=== PATIENT | male | born 1960 | race Caucasian/White ===

== ENCOUNTER 2018-03-26 14:41 | Emergency (ER) | payer MEDICAID, SELFPAY ==
[2018-03-26 15:06] VITALS: BP 155/98; PULSE 68; RESP 16; TEMP 37.2; O2SAT 98
--- NOTE | 2018-03-26 15:56 | W.ED.GENAD ---
Discharge Plan Disposition Patient Disposition: HOME Condition: Good Discharge Details Chief Complaint: Laceration Clinical Impression: Laceration Primary Care Provider: Jin Payan ED Provider: Toro Sosa Home Meds and New Rx's Prescriptions: No Action sildenafil [Viagra] 50 MG tablet 50 mg PO PRN RF: 0 fluticasone [Flonase Allergy Relief] 9.9 ML spray,suspension 9.9 ml NS DAILY RF: 0 cetirizine 10 MG tablet,chewable 10 mg PO DAILY RF: 0 ibuprofen 600 MG tablet 600 mg PO QID Qty: 30 RF: 0 Discharge Instructions Instructions: Care For Your Stitches (ED), Laceration (ED) Additional Instructions: Please return here in the emergency department in 7-10 days for reevaluation and removal of your sutures. If you notice any redness, discharge, worsening pain, persistent numbness or tingling please return immediately. If you notice any difficulty moving the finger, please return immediately. If you notice any worsening of your symptoms, or any new symptoms such as vomiting, diarrhea, fever, chills, shortness of breath, chest pain, numbness, weakness, or fainting , please return immediately to the emergency department for reevaluation. Please follow up with your primary care provider as soon as possible for reassessment and reevaluation. As always, it was a pleasure participating in your medical care today. Referrals: Jin Payan [Primary Care Provider] - Medical Decision Making This is a pleasant 58-year-old male who presents for evaluation of laceration on his left thumb which is his nondominant hand. It occurred with clean dishes that had broken. Physical exam demonstrates no evidence of weakness, numbness tingling, or decrease in two-point discrimination. Normal flexion extension of the thumb. The patient's tetanus was updated 1 year ago. The area was irrigated with copious amounts of normal saline chlorhexidine. The area was anesthetized with 5 cc of lidocaine, 1%. The area was explored and no evidence of foreign bodies were found. 5 simple interrupted sutures with 5-0 Ethilon in the left thumb were placed with no complications. Patient tolerated this well. Patient will be discharged home with close follow-up. We discussed red flags which to return the patient understands. I have extensively reviewed the treatment plan and discharge instructions with the patient. I have addressed all patient concerns at this time. The patient was made aware of what symptoms to monitor for that would warrant a return to the emergency department. Discussed the plan with the patient, they demonstrate verbal understanding and agreement with our assessment and plan at this time. HPI General Date/Time Provider Initiated Documentation: 03/26/18 15:08. HPI Narrative: This is a 58-year-old male who presents for evaluation of laceration of his left nondominant thumb. He cut it on a plate that broke roughly 30 minutes prior to arrival. Is over the dorsal aspect of the left thumb. He denies any numbness or tingling distal to the laceration. He denies any weakness of the finger, he denies any pain proximal to this area. He denies any other cuts. Last tetanus was updated 1 year ago. Patient denies any other complaints at this time. Related Data Home Medications Medication Instructions Recorded Confirmed ibuprofen 600 mg PO QID #30 tablet 06/09/17 03/26/18 cetirizine 10 mg PO DAILY tab-cap 09/26/17 03/26/18 fluticasone [Flonase Allergy 9.9 ml NS DAILY 09/26/17 03/26/18 Relief] sildenafil [Viagra] 50 mg PO PRN 09/26/17 03/26/18 Previous Rx's Medication Instructions Recorded ibuprofen 600 mg PO QID #30 tablet 06/09/17 Allergies Allergy/AdvReac Type Severity Reaction Status Date / Time No Known Allergies Allergy Unverified 03/26/18 15:09 General Stated Complaint: Laceration VERITO: 4 Review of Systems Review of Systems All systems reviewed & are unremarkable except as noted in HPI and below PFSH Family History Mother Personal history of malignant neoplasm Father No problems noted. Medical History Alcohol consumption binge drinking Allergic rhinitis Chronic anxiety Chronic low back pain Chronic obstructive lung disease Degenerative joint disease Depression Erectile dysfunction Hamstring tendinitis Onychomycosis Prediabetes Tobacco dependency hypertension,borderline Social History Smoking/Tobacco Use Status: Current every day Surgical History Colonoscopy - MAC (12/01/17) eye surgery Exam Narrative Exam Narrative: 1.Const: Well-nourished, Well-developed, appearing stated age 2.Eyes: PERRL, no conjunctival injection, and symmetrical lids. 3.ENT: Atraumatic external nose and ears. Moist MM. Neck: Symmetric, trachea midline, No thyromegaly. 4.CVS: +S1/S2, No murmurs or gallops. Peripheral pulses 2+ and equal in all extremities. Brisk capillary refill in all extremities. 5.RESP: Unlabored respiratory effort. Clear to auscultation bilaterally. No wheezes rales or rhonchi 6.GI: Soft, Nontender/Nondistended, No hepatosplenomegaly. No guarding or rebound. 7.MSK: Normocephalic, patient's extremities are normal except for a laceration over the dorsal aspect of the thumb on the left hand. It is located over the interphalangeal joint, just slightly distal to the joint itself. Physical exam demonstrates visualization of the tendon, however no evidence of tendon laceration. No active squirting bleeding, no numbness or tingling. Sensation is intact distal to the laceration, including two-point discrimination. Normal flexion extension of the thumb, no weakness. 8.Skin: Warm, Dry. No rashes or lesions. 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 Sensation grossly intact, no focal neurologic deficits. 10.Psych: (AAO) x3. Appropriate mood and affect Course Vital Signs Temperature 37.2 C 03/26/18 15:06 Pulse 68 03/26/18 15:06 Respiratory Rate 16 03/26/18 15:06 Blood Pressure 155/98 H 03/26/18 15:06 Pulse Oximetry 98 03/26/18 15:06 Temperature 37.2 C 03/26/18 15:06 Temperature Source Temporal Artery Scan 03/26/18 15:06 Pulse 68 03/26/18 15:06 Respiratory Rate 16 03/26/18 15:06 Respiratory Effort Non-Labored 03/26/18 15:07 Blood Pressure 155/98 H 03/26/18 15:06 Blood Pressure Position Sitting 03/26/18 15:06 Pulse Oximetry 98 03/26/18 15:06 Oxygen Delivery Method Room Air 03/26/18 15:06 Oxygen Flow Rate 0 03/26/18 15:06 Pain Level 0 03/26/18 15:06
[2018-03-26 16:07] VITALS: BP 155/98; PULSE 68; RESP 16; TEMP 37.2; O2SAT 98
== END 2018-03-26 16:08 | disposition home or self-care (01) ==
PROVIDERS: Emergency Provider Student in an Organized Health Care Education/Training Program; PCP Family Medicine
DX: S61.122A Laceration with foreign body of left thumb with damage to nail, initial encounter (principal); W45.8XXA Other foreign body or object entering through skin, initial encounter
CPT/HCPCS: 12001

== ENCOUNTER 2018-03-27 16:14 | Outpatient (REF) | payer MEDICAID, SELFPAY ==
[2018-03-27 19:08] LABS: Anion Gap 7.9 mmol/L (3-11); BUN 25 mg/dL (7-18); CO2 28.1 mmol/L (21.0-32.0); CREATININE 1.29 mg/dL (0.70-1.30); Calcium 8.8 mg/dL (8.5-10.1); Chloride 106 mmol/L (98-107); Estimated GFR 57.01 (mL/min/1.73m2); Glucose 97 mg/dL (70-100); Potassium 4.1 mmol/L (3.5-5.1); Sodium 142 mmol/L (136-145)
== END 2018-03-27 16:34 ==
LOC: NCHCN 16:14
PROVIDERS: PCP Family Medicine; Visit Provider Family Medicine
DX: I10 Essential (primary) hypertension (principal)
CPT/HCPCS: 80048

== ENCOUNTER 2018-03-31 01:35 | Outpatient (CLI) | payer MEDICAID, SELFPAY ==
--- NOTE | 2018-03-31 13:07 | DI.RAD_ITS ---
SYMPTOMS/DIAGNOSIS: LEFT SHOULDER PAIN, M25.512, NO INJURY, POINT TENDERNESS AROUND PROXIMAL LATERAL HUMERUS LEFT SHOULDER: Five views were obtained. There are mild hypertrophic degenerative changes involving the acromioclavicular and glenohumeral joints. No other bony or soft tissue abnormality seen.
== END 2018-03-31 01:55 ==
PROVIDERS: PCP Family Medicine; Visit Provider Family Medicine
DX: M25.512 Pain in left shoulder (principal); M19.012 Primary osteoarthritis, left shoulder
CPT/HCPCS: 73030

== ENCOUNTER 2018-04-05 10:26 | Emergency (ER) | payer MEDICAID, SELFPAY ==
[2018-04-05 10:39] VITALS: BP 146/89; PULSE 69; RESP 16; TEMP 36.5; O2SAT 98
--- NOTE | 2018-04-05 10:55 | ED.GENADUL_ITS ---
Discharge Plan Disposition Patient Disposition: HOME Condition: Good Discharge Details Chief Complaint: SutureRem Clinical Impression: Visit for suture removal Primary Care Provider: Jin Payan ED Provider: Koko Temple Home Meds and New Rx's Prescriptions: No Action sildenafil [Viagra] 50 MG tablet 50 mg PO PRN RF: 0 fluticasone [Flonase Allergy Relief] 9.9 ML spray,suspension 9.9 ml NS DAILY RF: 0 cetirizine 10 MG tablet,chewable 10 mg PO DAILY RF: 0 ibuprofen 600 MG tablet 600 mg PO QID Qty: 30 RF: 0 Discharge Instructions Instructions: Stitches Removal (ED), Steristrips (ED) Additional Instructions: Watch for any signs of infection and return immediately if these occur. Otherwise keep wound clean and dry and follow-up with your primary care provider as needed Referrals: Jin Payan [Primary Care Provider] - (As needed) Medical Decision Making Patient presenting to the emergency department for suture removal. Patient had sutures placed in left dorsal thumb 10 days ago. Patient has no purulence or erythema to suggest infection and most of the wound edges are well approximated with some mild opening with flexion of thumb which is expected given that the laceration was over joint. Sutures were removed and Steri-Strips put in place to help keep wound edges semi-proximated otherwise patient is clear for discharge with no further interventions needed. Patient encouraged to watch for any signs of infection and return immediately if these occur otherwise to follow-up with primary care provider as needed. HPI General Mode of arrival: ambulatory . Date/Time Provider Initiated Documentation: 04/05/18 10:27 . Limitations to Documentation: no limitations . Information obtained by: patient, RN notes reviewed and old records reviewed . History of Present Illness 58 year old M presents to the emergency department with the chief complaint of Suture removal, described as mild, with intensity rated at 2. Quality is described as aching, and is localized to the upper extremity. Patient started experiencing this day(s) (10) and it has been constant. Patient notes no other symptoms.. Patient did receive the following treatments prior to arrival, none Related Data Home Medications Medication Instructions Recorded Confirmed ibuprofen 600 mg PO QID #30 tablet 06/09/17 04/05/18 cetirizine 10 mg PO DAILY tab-cap 09/26/17 04/05/18 fluticasone [Flonase Allergy 9.9 ml NS DAILY 09/26/17 04/05/18 Relief] sildenafil [Viagra] 50 mg PO PRN 09/26/17 04/05/18 Previous Rx's Medication Instructions Recorded ibuprofen 600 mg PO QID #30 tablet 06/09/17 Allergies Allergy/AdvReac Type Severity Reaction Status Date / Time No Known Allergies Allergy Unverified 04/05/18 10:43 General Stated Complaint: SutureRem VERITO: 5 Review of Systems Constitutional Denies chills and Denies fever(s) Integumentary/Breasts Denies rash and Denies skin swelling PFSH Family History Mother Personal history of malignant neoplasm Father No problems noted. Medical History Alcohol consumption binge drinking Allergic rhinitis Chronic anxiety Chronic low back pain Chronic obstructive lung disease Degenerative joint disease Depression Erectile dysfunction Hamstring tendinitis Onychomycosis Prediabetes Tobacco dependency hypertension,borderline Social History Smoking/Tobacco Use Status: Current every day Surgical History Colonoscopy - MAC (12/01/17) eye surgery Exam Const General: cooperative, comfortable and no acute distress Orientation: alert, awake and oriented x3 Skin Rashes: no rashes Trauma: laceration (healing well laceration to left dorsal thumb at IP joint without erythema, purulence, or dehiscence.) Course Vital Signs Temperature 36.5 C 04/05/18 10:39 Pulse 69 04/05/18 10:39 Respiratory Rate 16 04/05/18 10:39 Blood Pressure 146/89 H 04/05/18 10:39 Pulse Oximetry 98 04/05/18 10:39 Temperature 36.5 C 04/05/18 10:39 Temperature Source Skin 04/05/18 10:39 Pulse 69 04/05/18 10:39 Respiratory Rate 16 04/05/18 10:39 Respiratory Effort Non-Labored 04/05/18 10:41 Blood Pressure 146/89 H 04/05/18 10:39 Pulse Oximetry 98 04/05/18 10:39 Pain Level 0 04/05/18 10:39
== END 2018-04-05 11:04 | disposition home or self-care (01) ==
LOC: ER 11:07
PROVIDERS: Emergency Provider Nurse Practitioner Family; PCP Family Medicine
DX: S61.12 Laceration with foreign body of thumb with damage to nail (principal); W45.8XXD Other foreign body or object entering through skin, subsequent encounter; Z48.02 Encounter for removal of sutures

== ENCOUNTER → 2018-10-28 09:55 | Outpatient (BNVA) | payer MEDICARE, SELFPAY | PROVIDERS: PCP Family Medicine; Referring Provider Family Medicine; Visit Provider Student in an Organized Health Care Education/Training Program | DX: M25.511 Pain in right shoulder (principal); W00.0XXA Fall on same level due to ice and snow, initial encounter; I10 Essential (primary) hypertension | CPT/HCPCS: 20610; 99213; 99214; J1040 ==

== ENCOUNTER 2018-11-05 22:23 | Emergency (ER) | payer MEDICARE, SELFPAY ==
[2018-11-05 22:28] VITALS: BP 142/89; PULSE 62; RESP 20; TEMP 37.6; O2SAT 98
--- NOTE | 2018-11-05 22:32 | W.ED.GENAD ---
Discharge Plan Disposition Patient Disposition: HOME Condition: Improving Discharge Details Chief Complaint: GenMedical Clinical Impression: Reducible left inguinal hernia Primary Care Provider: Jin Payan ED Provider: Koko Temple Home Meds and New Rx's Prescriptions: Continued sildenafil [Viagra] 50 MG tablet 50 mg PO PRN RF: 0 fluticasone propionate [Flonase Allergy Relief] 9.9 ML spray,suspension 9.9 ml NS DAILY RF: 0 cetirizine 10 MG tablet,chewable 10 mg PO DAILY RF: 0 ibuprofen 600 MG tablet 600 mg PO QID Qty: 30 RF: 0 Discharge Instructions Instructions: Inguinal Hernia (ED) Additional Instructions: Return immediately to the emergency department if you begin having persistent hernia with groin pain, inability to put hernia back into place, severe abdominal pain, nausea vomiting, or any further symptoms. Pending surgical appointment follow-up please refrain from heavy lifting, straining or activities that would increase abdominal pressure as this may re-aggravate your hernia. Referrals: [facility] [Provider Group] (Please call the office for arrangement of follow-up appointment. ) Medical Decision Making Patient presenting to the emergency department for chief complaint of hernia. Patient states that around 5 PM this evening he was eating food and coughed causing a hernia to his left groin. Patient states previous episode of right inguinal hernia that needed mesh repair years ago. Patient denies any other symptoms beyond groin pain. Physical exam shows a nontender abdomen with normal active bowel sounds, patient does have a bulging mass in the left inguinal canal. Approximately the size of a golf ball. Otherwise exam is unremarkable. Patient placed in Trendelenburg with ice pack placed upon groin and given IV ketorolac. Patient was left in this position for 30 minutes and reassessed and no further inguinal mass was seen. Patient stated only mild discomfort when palpating the left inguinal canal otherwise resolution of his symptoms. Patient was able to stand up and get out of the bed with no return of hernia at this time. Given easily reducible hernia I do not feel that any other evaluation or work-up is needed. Did discuss with patient emergent return for nonreducible or extremely painful hernia otherwise to follow-up with general surgery for repair. Patient placed upon care management list for surgical referral. After discussion of diagnosis and plan of care patient has no further needs, questions, or concerns and states clear understanding to return to the emergency department for any worsening symptoms. HPI General Mode of arrival: ambulatory. Date/Time Provider Initiated Documentation: 11/05/18 22:31. Limitations to Documentation: no limitations. Information obtained by: patient and RN notes reviewed. History of Present Illness 58 year old M presents to the emergency department with the chief complaint of Left inguinal hernia, described as moderate and similar to prior episodes, with intensity rated at 8. Quality is described as sharp, and is localized to the pelvis and left. Patient started experiencing this hour(s) (5) and it has been constant. Other factors that worsen symptoms (Coughing) . Patient notes no other symptoms.. Patient did receive the following treatments prior to arrival, none Related Data Home Medications Medication Instructions Recorded Confirmed ibuprofen 600 mg PO QID #30 tab 06/09/17 10/28/18 cetirizine 10 mg PO DAILY tab-cap 09/26/17 10/28/18 fluticasone propionate [Flonase 9.9 ml NS DAILY 09/26/17 10/28/18 Allergy Relief] sildenafil [Viagra] 50 mg PO PRN 09/26/17 10/28/18 Previous Rx's Medication Instructions Recorded ibuprofen 600 mg PO QID #30 tab 06/09/17 Allergies Allergy/AdvReac Type Severity Reaction Status Date / Time No Known Allergies Allergy Unverified 10/28/18 10:15 General Stated Complaint: GenMedical VERITO: 3 Review of Systems Constitutional Denies chills, Denies fever(s) and Denies poor appetite Cardiovascular Denies chest pain and Denies dyspnea Respiratory Denies cough and Denies dyspnea Gastrointestinal Reports as per HPI, Reports abdominal pain, Denies melena, Denies change in bowel habits, Denies constipation, Denies diarrhea, Denies nausea and Denies vomiting Genitourinary Denies difficulty urinating Integumentary/Breasts Denies rash [facility] Social History Smoking/Tobacco Use Status: Current every day Alcohol Intake: current Drug use: Daily Do you feel safe in your relationship?: Yes Exam Const General: cooperative Orientation: alert, awake and oriented x3 Resp Effort & Inspection: normal respiratory effort and able to speak in complete sentences Auscultation: clear to auscultation bilaterally Cardio Rate: regular rate Rhythm: regular rhythm Heart Sounds: S1 normal and S2 normal GI Palpation: soft, no hepatosplenomegaly, not firm, no guarding, hernia direct inguinal on the left, no pulsatile masses, not rigid and no splenomegaly Auscultation: normal bowel sounds Back/Spine/Pelvis Back: no CVA tenderness Neuro General: alert, awake, oriented x3, gait normal and moves all extremities Course Vital Signs Temperature 37.6 C H 11/05/18 22:28 Pulse 62 11/05/18 22:28 Respiratory Rate 20 11/05/18 22:28 Blood Pressure 142/89 H 11/05/18 22:28 Pulse Oximetry 98 11/05/18 22:28 Temperature 37.6 C H 11/05/18 22:28 Temperature Source Tympanic 11/05/18 22:28 Pulse 62 11/05/18 22:28 Respiratory Rate 20 11/05/18 22:28 Blood Pressure 142/89 H 11/05/18 22:28 Blood Pressure Position Sitting 11/05/18 22:28 Pulse Oximetry 98 11/05/18 22:28 Oxygen Delivery Method Room Air 11/05/18 22:28 Oxygen Flow Rate 0 11/05/18 22:28 Pain Level 8 11/05/18 22:28
--- NOTE | 2018-11-05 22:43 | ED.GENADUL_ITS ---
Discharge Plan Disposition Patient Disposition: HOME Condition: Improving Discharge Details Chief Complaint: GenMedical Clinical Impression: Reducible left inguinal hernia Primary Care Provider: Jin Payan ED Provider: Koko Temple Home Meds and New Rx's Prescriptions: Continued sildenafil [Viagra] 50 MG tablet 50 mg PO PRN RF: 0 fluticasone propionate [Flonase Allergy Relief] 9.9 ML spray,suspension 9.9 ml NS DAILY RF: 0 cetirizine 10 MG tablet,chewable 10 mg PO DAILY RF: 0 ibuprofen 600 MG tablet 600 mg PO QID Qty: 30 RF: 0 Discharge Instructions Instructions: Inguinal Hernia (ED) Additional Instructions: Return immediately to the emergency department if you begin having persistent hernia with groin pain, inability to put hernia back into place, severe abdominal pain, nausea vomiting, or any further symptoms. Pending surgical inderjit ointment follow-up please refrain from heavy lifting, straining or activities that would increase abdominal pressure as this may re-aggravate your hernia. Referrals: [facility] [Provider Group] (Please call the office for arrangement of follow-up appointment. ) Medical Decision Making Patient presenting to the emergency department for chief complaint of hernia. Patient states that around 5 PM this evening he was eating food and coughed causing a hernia to his left groin. Patient states previous episode of right inguinal hernia that needed mesh repair years ago. Patient denies any other symptoms beyond groin pain. Physical exam shows a nontender abdomen with normal active bowel sounds, patient does have a bulging mass in the left inguinal canal. Approximately the size of a golf ball. Otherwise exam is unremarkable. Patient placed in Trendelenburg with ice pack placed upon groin and given IV ketorolac. Patient was left in this position for 30 minutes and reassessed and no further inguinal mass was seen. Patient stated only mild discomfort when palpating the left inguinal canal otherwise resolution of his symptoms. Patient was able to stand up and get out of the bed with no return of hernia at this time. Given easily reducible hernia I do not feel that any other evaluation or work-up is needed. Did discuss with patient emergent return for nonreducible or extremely painful hernia otherwise to follow-up with general surgery for repair. Patient placed upon care management list for surgical referral. After discussion of diagnosis and plan of care patient has no further needs, questions, or concerns and states clear understanding to return to the emergency department for any worsening symptoms. HPI General Mode of arrival: ambulatory . Date/Time Provider Initiated Documentation: 11/05/18 22:31 . Limitations to Documentation: no limitations . Information obtained by: patient and RN notes reviewed . History of Present Illness 58 year old M presents to the emergency department with the chief complaint of Left inguinal hernia, described as moderate and similar to prior episodes, with intensity rated at 8. Quality is described as sharp, and is localized to the pelvis and left. Patient started experiencing this hour(s) (5) and it has been constant. Other factors that worsen symptoms (Coughing) . Patient notes no other symptoms.. Patient did receive the following treatments prior to arrival, none Related Data Home Medications Medication Instructions Recorded Confirmed ibuprofen 600 mg PO QID #30 tab 06/09/17 10/28/18 cetirizine 10 mg PO DAILY tab-cap 09/26/17 10/28/18 fluticasone propionate [Flonase 9.9 ml NS DAILY 09/26/17 10/28/18 Allergy Relief] sildenafil [Viagra] 50 mg PO PRN 09/26/17 10/28/18 Previous Rx's Medication Instructions Recorded ibuprofen 600 mg PO QID #30 tab 06/09/17 Allergies Allergy/AdvReac Type Severity Reaction Status Date / Time No Known Allergies Allergy Unverified 10/28/18 10:15 General Stated Complaint: GenMedical VERITO: 3 Review of Systems Constitutional Denies chills, Denies fever(s) and Denies poor appetite Cardiovascular Denies chest pain and Denies dyspnea Respiratory Denies cough and Denies dyspnea Gastrointestinal Reports as per HPI, Reports abdominal pain, Denies melena, Denies change in bowel habits, Denies constipation, Denies diarrhea, Denies nausea and Denies vomiting Genitourinary Denies difficulty urinating Integumentary/Breasts Denies rash [facility] Social History Smoking/Tobacco Use Status: Current every day Alcohol Intake: current Drug use: Daily Do you feel safe in your relationship?: Yes Exam Const General: cooperative Orientation: alert, awake and oriented x3 Resp Effort & Inspection: normal respiratory effort and able to speak in complete sentences Auscultation: clear to auscultation bilaterally Cardio Rate: regular rate Rhythm: regular rhythm Heart Sounds: S1 normal and S2 normal GI Palpation: soft, no hepatosplenomegaly, not firm, no guarding, hernia direct inguinal on the left, no pulsatile masses, not rigid and no splenomegaly Auscultation: normal bowel sounds Back/Spine/Pelvis Back: no CVA tenderness Neuro General: alert, awake, oriented x3, gait normal and moves all extremities Course Vital Signs Temperature 37.6 C H 11/05/18 22:28 Pulse 62 11/05/18 22:28 Respiratory Rate 20 11/05/18 22:28 Blood Pressure 142/89 H 11/05/18 22:28 Pulse Oximetry 98 11/05/18 22:28 Temperature 37.6 C H 11/05/18 22:28 Temperature Source Tympanic 11/05/18 22:28 Pulse 62 11/05/18 22:28 Respiratory Rate 20 11/05/18 22:28 Blood Pressure 142/89 H 11/05/18 22:28 Blood Pressure Position Sitting 11/05/18 22:28 Pulse Oximetry 98 11/05/18 22:28 Oxygen Delivery Method Room Air 11/05/18 22:28 Oxygen Flow Rate 0 11/05/18 22:28 Pain Level 8 11/05/18 22:28
[2018-11-05] MEDS: Ketorolac 30 MG/ML VIAL IVP (22:44)
--- NOTE | 2018-11-05 22:47 | NUR.NOTE ---
Nursing Note: Pt placed in trendelenburg position and placed an icepack on L suprapubic area.
[2018-11-05 23:35] VITALS: BP 142/89; PULSE 62; RESP 20; O2SAT 98
== END 2018-11-05 23:35 | disposition home or self-care (01) ==
PROVIDERS: Emergency Provider Nurse Practitioner Family; PCP Family Medicine
DX: K40.91 Unilateral inguinal hernia, without obstruction or gangrene, recurrent (principal)
CPT/HCPCS: 96374; 99284; J1885

== ENCOUNTER → 2018-11-23 12:23 | Outpatient (BNVA) | payer MEDICARE, SELFPAY | PROVIDERS: PCP Family Medicine; Referring Provider Family Medicine; Visit Provider Surgery | DX: K40.90 Unilateral inguinal hernia, without obstruction or gangrene, not specified as recurrent (principal) | CPT/HCPCS: 99204; 99213 ==

== ENCOUNTER 2018-12-10 06:19 | Day surgery (SDC) | payer MEDICARE, SELFPAY ==
--- NOTE | 2018-11-24 11:30 | ANES_ITS ---
Date of service: 11/24/18 Time of Service: 11:30 Anesthesia Note Report Anesthesia Note: Mr. Davalos is scheduled to have an inguinal hernia repair on 12/10. Although I have reached out to him, I have not spoken to him. I spoke with Linda Wilson at [facility] and understand he is currently living in his car but his car is also not working and is in the repair shop. He relayed that he may be able to stay with his daughter but per Linda, his daughter was recently evicted. The concern is that he have appropriate accommodations after surgery to recover. Linda is aware of this as well as the surgeons office ([facility]) who will follow up on this and confirm the plan. Linda is happy to help with RCT ride waiver and coordinate if needed. If he has accommodations, then surgery will proceed, if he does not then it is likely best to postpone surgery.
[2018-12-10] VITALS (8 sets, daily range): BP systolic 99–150; BP diastolic 68–97; PULSE 52–67; RESP 14–19; TEMP 36.5–36.8; O2SAT 97–100
[2018-12-10] MEDS: Lactated Ringers 1,000 ML 100 ML IV (06:55)
[2018-12-10] MEDS: ceFAZolin 2 GM/50 ML BAG IVPB (08:17)
[2018-12-10] MEDS: Bupivacaine 0.25% Pres-Free 30 ML VIAL (08:23)
--- NOTE | 2018-12-10 09:31 | W.PM.DSUDISC ---
Discharge Plan Disposition Patient Disposition: HOME Condition: Good Discharge Details Attending Provider: Shanice Benavidez Primary Care Provider: Jin Payan Home Meds and New Rx's Prescriptions: Continued sildenafil [Viagra] 50 MG tablet 50 mg PO PRN RF: 0 cetirizine 10 MG tablet,chewable 10 mg PO DAILY RF: 0 albuterol sulfate 90 mcg/actuation Hfa Aerosol Inhaler 2 puff INHALATION QID RF: 0 Discharge Instructions Additional Instructions: Okay to remove the top dressing tomorrow. Steri strips stick for about a week. May shower tomorrow Ice can be used as needed for pain. Use Tylenol and ibuprofen for pain as needed. Okay to use a stool softener if constipated Call for any concerns with infection or bleeding Stand Alone Forms: Anes.Nerve Block Instructions, DSU Post op Instructions, [place] (DSU) Activity:: Do not lift more than 15 pounds for one month Remove Dressings/Wound Care:: 24 hours Shower/Bathe:: 24 hours Diet:: As Tolerated Discharge Orders Discharge Orders: Discharge Order (Routine); Ordered 12/10/18 Ordered By: Shanice Benavidez DS: Diagnosis Discharge Diagnosis (1) Left inguinal hernia: Start date: 12/10/18 Start time: 09:31 Status: Acute
[2018-12-10] MEDS: HYDROmorphone 2 MG/ML VIAL IVP ×2 (09:57→10:13)
[2018-12-10] MEDS: Normal Saline Flush 10 ML SYR IV (09:58)
--- NOTE | 2018-12-11 08:10 | ROE_ITS ---
REPORT OF OPERATIVE PROCEDURE DATE OF PROCEDURE December 10, 2018 PREOPERATIVE DIAGNOSIS Left inguinal hernia. POSTOPERATIVE DIAGNOSIS Left inguinal hernia. PROCEDURE Left inguinal hernia repair with mesh. SURGEON Shanice Benavidez M.D. ANESTHESIA Local and general with TAP block. INDICATIONS This is a 58-year-old man with a reducible left inguinal hernia that is bothersome. The patient's history is significant for a right inguinal hernia repair. PROCEDURE DESCRIPTION The patient was placed supine on the operating table and after induction of general anesthetic, he had a left-sided TAP block placed. His left groin was then prepped and draped sterilely. The skin between the ASIS and pubic tubercle was infiltrated with local anesthetic. An incision was made and the subcutaneous tissue was divided with cautery. A small bridging vein was encountered and divided and ligated with #3-0 Vicryl ties. The external oblique fascia was identified and a small incision made. This was extended bluntly through the external inguinal ring and also proximally as well. The spermatic cord was encircled to the level of the pubic tubercle with a Dougherty drain. The patient did not have a significant direct inguinal hernia. He had a hernia sac present containing fat. This was dissected free of the spermatic cord and reduced through a patulous internal ring. The patient also had a fairly lipomatous spermatic cord, but I carefully inspected it and this was intimately associated with the vascular structure of the cord and could not be dissected free. A large mesh plug was trimmed to remove some of the internal petals and then inserted into the internal ring in good position. This was sutured superiorly with an interrupted #2-0 Prolene stitch. The flat sheet of mesh was then placed on the floor of the inguinal canal and sutured in position in standard Kulwant fashion. There was good hemostasis so the external oblique fascia was closed with a running #3-0 Vicryl stitch, as was the Jackie's fascia and the skin closed with a running #4-0 Monocryl subcuticular stitch. He tolerated the procedure well and was stable to recovery. CC: Jin Payan M.D.
== END 2018-12-10 12:10 | disposition home or self-care (01) ==
PROVIDERS: PCP Family Medicine; Visit Provider Surgery
PROC: (CPT 49505; principal; 2018-12-10 07:30)
DX: K40.90 Unilateral inguinal hernia, without obstruction or gangrene, not specified as recurrent (principal); J44.9 Chronic obstructive pulmonary disease, unspecified; G89.18 Other acute postprocedural pain; F17.210 Nicotine dependence, cigarettes, uncomplicated; Z59.0 Homelessness
CPT/HCPCS: 49505; 76942; C1781; J0690; J1100; J1885; J2405

== ENCOUNTER → 2018-12-21 10:45 | Outpatient (BNVA) | payer MEDICARE, SELFPAY | PROVIDERS: PCP Family Medicine; Referring Provider Family Medicine; Visit Provider Surgery | DX: Z48.815 Encounter for surgical aftercare following surgery on the digestive system (principal); Z87.19 Personal history of other diseases of the digestive system ==

== ENCOUNTER 2019-03-09 18:19 | Observation (INO) | payer MEDICARE, SELFPAY ==
[2019-03-09] VITALS (20 sets, daily range): BP systolic 134–146; BP diastolic 77–96; PULSE 45–68; RESP 9–27; TEMP 36.6; O2SAT 95–100
[2019-03-09] MEDS: Normal Saline 1,000 ML 1000 ML IV ×3 (18:30→22:02)
--- NOTE | 2019-03-09 18:30 | DI.RAD_ITS ---
EXAM: XR CHEST 2V PA LATERAL INDICATION: ALTERED MENTAL STATUS, bradycardic, r/o acute disease. COMPARISON: XR shoulder LT complete 2+V from 03/31/2018 TECHNIQUE: 2D digital imaging was performed. FINDINGS: The heart size and pulmonary vasculature are within normal limits. The lungs are clear. No effusion s or pneumothoraces are present. Degenerative changes are seen in the spine. IMPRESSION: No acute pulmonary process.
--- NOTE | 2019-03-09 18:30 | DI.CT_ITS ---
EXAM: CT HEAD WO CLINICAL HISTORY: ams, slurred speech, r/o acute cva TECHNIQUE: The exam was performed according to the usual protocol without contrast. COMPARISON: No exams were available for comparison FINDINGS: There is a normal mosqueda-white matter differentiation. No acute intracranial hemorrhage, midline shift or mass effect is present. The ventricles are intact. The basilar cisterns are patent. There is a 1.8 x 1.1 cm soft tissue mass in the left nasal passageway. This may represent a nasal polyp. Othe r nasal masses cannot be excluded. The visualized paranasal sinuses are clear as are the mastoid air cells. The calvarium is intact. IMPRESSION: No acute intracranial process. 1.8 x 1.1 cm soft tissue mass in the left nasal passageway. This may represent a nasal polyp. Follo w up as clinically appropriate.
--- NOTE | 2019-03-09 18:34 | ED.GENADUL_ITS ---
Discharge Plan Disposition Patient Disposition: [facility] INPATIENT Condition: Fair Discharge Details Chief Complaint: AMS/LOC Clinical Impression: Vertigo, Cocaine use, Marijuana use, continuous Primary Care Provider: Jin Payan ED Provider: Saman Bennett Home Meds and New Rx's Prescriptions: No Action sildenafil [Viagra] 50 MG tablet 50 mg PO PRN RF: 0 cetirizine 10 MG tablet,chewable 10 mg PO DAILY RF: 0 albuterol sulfate 90 mcg/actuation Hfa Aerosol Inhaler 2 puff INHALATION QID RF: 0 lisinopril-hydrochlorothiazide 10-12.5 mg Tablet 1 tab PO DAILY RF: 0 Medical Decision Making <Roxane Gross DO - Last Filed: 03/09/19 20:35> 1825 -- 58-year-old male with a history of chronic alcohol and drug abuse, COPD, history of homelessness who presents for dizziness since 215 and profound weakness, diaphoresis and slurred speech since 45 minutes ago. Heart rate 60s on arrival. Intermittently decreased into the 40s. EKG notes a rate of 50, sinus, no acute ST T wave ischemic changes and no acute change from previous EKG. previous EKGs also noted heart rates in the 40s. Patient is diaphoretic and drowsy but able to answer most questions. Moving all extremities and no obvious focal deficits. He has pinpoint pupils. There was mention by neighbor of possible crack and heroin use. Patient denied any drug or alcohol use other than marijuana. Case discussed with patient's daughter Natalie over the phone who stated that he had not been drinking any alcohol or using any other drugs besides marijuana recently. Differential diagnosis includes acute drug or alcohol intoxication, CVA, ACS, arrhythmia, electrolyte abnormality, dehydration, infection. Will place 2 large-bore IVs, IV fluids, screening labs, stat CT head and chest x-ray. 1855 --patient more alert and talkative after IV fluids. He does admit to a history of vertigo and states his dizziness is worse with head movement. Will give a dose of meclizine. CT head and chest x-ray negative. Labs reviewed and so far unremarkable. Patient has been unable to give a urine sample and is refusing straight cath. 2014 --uds notes cocaine and thc. Patient now admits to smoking cocaine a few days ago. Patient still complaining of vertigo worse with head movement. He does admit to a history of vertigo. Will give another dose of meclizine and 5 mg Valium and reassess. 2029 --Case endorsed to Dr. Bennett to follow-up on response to vertigo medication and final disposition. If patient improved after meds and ambulation, can discharge to home. Medical Records Medical records reviewed: Yes I reviewed the patient's medical records. Imaging Data Radiologic Study: Radiologist's impression: CT Head Without Contrast Exam date and time: 03/09/2019 6:44 PM Clinical history: 58 years old, male; Dizziness TECHNIQUE: Imaging protocol: Computed tomography of the head without contrast. COMPARISON: No relevant prior studies available. FINDINGS: Brain: Normal. No hemorrhage. Unremarkable white matter. No mass effect. Ventricles: Normal. No ventriculomegaly. Bones/joints: Unremarkable. No acute fracture. Sinuses: Visualized sinuses are unremarkable. No fluid levels. Mastoid air cells: Visualized mastoid air cells are well aerated. Soft tissues: Unremarkable. Other findings: There is polyp/mass in the posterior left choana. IMPRESSION: No acute intracranial abnormality. Lab Data Lab results reviewed: Yes I reviewed the patient's lab results. ECG Data Attestation: I personally reviewed and interpreted this ECG (s) as follows: Interpretation: Rate of 50, sinus, T wave inversion in lead III. No acute ST elevation or depression. NJ 140. QTc 43. QRS prolonged at 114 but this appears similar to previous EKGs. <Saman Bennett MD - Last Filed: 03/10/19 00:00> 22:30 - Patient signed out to me pending reevaluation after medications and flu ids. He had presented with dizziness. He was seen initially by Dr. Gross. Per her note and discussion with me, patient was nonfocal in terms of neurologic exam other than vertigo. His initial work-up was unremarkable including EKG, chest x-ray, head CT and labs. He has a prior history of vertigo in addition to his history of alcohol and drug abuse. Patient had received meclizine and was supposed to receive another dose of meclizine and Valium. He only got the Valium. Patient evaluated by me and states he does definitely feel better. However, in attempting to sit him up and stand him up his, vertigo returns immediately. I am going to give him the third liter of fluid that had been ordered as well as the second dose of meclizine that had been ordered. We will get a second EKG and troponin. If he is still unable to ambulate or sit up will discuss with hospitalist for admission. Midnight - Patient repeat EKG and troponin are fine. Continues to be symptomatic with any type of movement and we are unable to even sit him up on the stretcher. Case discussed with Dr. Munoz who agrees to admission. Lab Data Lab results reviewed: Yes I reviewed the patient's lab results. ECG Data Attestation: I personally reviewed and interpreted this ECG (s) as follows: Interpretation: Normal sinus rhythm at a rate of 64. Slight left axis and slight QRS widening. Normal ST segments. HPI <Roxane Gross DO - Last Filed: 03/09/19 20:35> General Mode of arrival: ambulatory . Date/Time Provider Initiated Documentation: 03/09/19 18:25 . Limitations to Documentation: no limitations . Information obtained by: patient . HPI Narrative: Patient is a 58-year-old male with a history of alcohol and narcotic drug abuse which per patient and daughter is currently in remission who presented for dizziness, weakness and diaphoresis that started this afternoon. Patient presented as needing help out of the car from the ED waiting room. Nursing staff brought him directly back to her room as he appeared diaphoretic and generally weak. Neighbor Akosua brought patient here for what she observed to be generalized weakness and sweating and dizziness but got progressively worse of the last 45 minutes. She states she saw him at 215 today and he seemed a little bit more quiet and tired than usual but no acute concern at that time. She does state that there is possibly history of crack and heroin use. Patient admits to some marijuana use but denies any drug or alcohol use. Related Data Home Medications Medication Instructions Recorded Confirmed cetirizine 10 mg PO DAILY tab-cap 09/26/17 03/09/19 sildenafil [Viagra] 50 mg PO PRN 09/26/17 03/09/19 albuterol sulfate 2 puff INHALATION QID 12/03/18 03/09/19 lisinopril-hydrochlorothiazide 1 tab PO DAILY 03/09/19 03/09/19 Allergies Allergy/AdvReac Type Severity Reaction Status Date / Time No Known Allergies Allergy Verified 03/09/19 18:29 General Stated Complaint: AMS/LOC VERITO: 1 Review of Systems <Roxane Gross DO - Last Filed: 03/09/19 20:35> All systems reviewed & are unremarkable except as noted in HPI and below Constitutional Constitutional: Reports as per HPI, Denies chills and Denies fever(s) Eyes Eyes: Denies blurry vision ENT Ears, Nose, Mouth, and Throat: Reports dizziness, Denies sore throat and Denies throat swelling Cardiovascular Cardiovascular: Denies chest pain and Denies dyspnea Respiratory Respiratory: Denies cough and Denies dyspnea Gastrointestinal Gastrointestinal: Denies abdominal pain, Denies diarrhea and Denies vomiting Genitourinary Genitourinary: Denies hematuria and Denies dysuria Musculoskeletal Musculoskeletal: Denies back pain and Denies numbness Integumentary/Breasts Skin/Breast: Denies lesions and Denies rash Neurologic Neurologic: Reports dizziness, Denies focal weakness and Denies numbness Allergic/Immunologic Allergic/Immunologic: Denies throat swelling PFSH <Roxane Gross DO - Last Filed: 03/09/19 20:35> Medical History Alcohol consumption binge drinking Allergic rhinitis Chronic anxiety Chronic low back pain Chronic obstructive lung disease Degenerative joint disease Depression Erectile dysfunction Hamstring tendinitis hypertension,borderline Onychomycosis Prediabetes Tobacco dependency Surgical History Colonoscopy - MAC (12/01/17) eye surgery trauma as a child H/O right inguinal hernia repair (Acute) S/P left inguinal hernia repair (Acute) 12/10/18, Dr Shanice Benavidez, [facility] Family History Mother , cancer Personal history of malignant neoplasm Father No problems noted. Social History Smoking/Tobacco Use Status: Current every day Alcohol Intake: current Alcohol Intake frequency: 0-2 drinks per day Alcohol ty pe: beer Drug use: Daily Substance use type: marijuana Additional Social history: homeless. Pt will be staying temporarily with Daughter, Melissa, following procedure. Exam <Roxane Gross DO - Last Filed: 10/29/19 20:35> Const General: cooperative and ill appearing acutely Orientation: other (drowsy) HENME Head: normal to inspection Ears: hearing grossly normal bilaterally, external ears normal and TM's normal bilaterally General nose exam: external nose normal Face and sinus: normal facial exam Mouth: oral mucosae normal Teeth and gingiva: dentition normal Throat: posterior oropharynx normal Eyes General: appearance normal, both eyes and all related structures Eyelids: eyelids normal Pupils: PERRL and pinpoint bilaterally EOM: EOM intact bilaterally Neck Neck: normal visual inspection Lymphatic: no lymphadenopathy noted Chest Chest: normal inspection of the chest Resp Effort & Inspection: normal respiratory effort and able to speak in complete sentences Auscultation: clear to auscultation bilaterally Cardio Rate: regular rate Rhythm: regular rhythm GI Inspection: normal to inspection Palpation: soft, not firm, no guarding, no hepatosplenomegaly, no masses and nontender Auscultation: normal bowel sounds Back/Spine/Pelvis Back: no CVA tenderness Skin General skin exam: no rashes or lesions noted Neuro General: moves all extremities and no meningeal signs Cranial Nerves: other (difficult to assess all cranial nerves due to drowsiness) Cognition: normal cognition Speech: speech normal Gait: normal gait Motor: muscle tone normal throughout and strength 5/5 throughout Sensory Exam: no sensory deficits noted Extrem General: normal to inspection, full ROM and normal capillary refill Psych Appearance: grossly normal Mental Status: mental status grossly normal Speech and Movement: speech and movement normal Affect: normal affect Thought Process: normal Course <Roxane Gross, - Last Filed: 03/09/19 20:35> Vital Signs Vital signs: Vital Signs Temperature 97.9 F 03/09/19 18:22 Pulse 60 03/09/19 18:22 Respiratory Rate 21 03/09/19 18:22 Blood Pressure 137/81 03/09/19 18:22 Pulse Oximetry 99 03/09/19 18:22 Temperature 97.9 F 03/09/19 18:22 Temperature Source Oral 03/09/19 18:22 Pulse 60 03/09/19 18:22 Respiratory Rate 21 03/09/19 18:22 Respiratory Effort Non-Labored 03/09/19 18:27 Blood Pressure 137/81 03/09/19 18:22 Pulse Oximetry 99 03/09/19 18:22 Oxygen Delivery Method Room Air 03/09/19 18:22 Oxygen Flow Rate 0 03/09/19 18:22 Pain Level 0 03/09/19 18:22 Sign Out <Roxane Gross DO - Last Filed: 03/09/19 20:35> Sign Out Data: Sign Out Comment: Follow-up on response to vertigo medication and final disposition. Last updated by Roxane Gross DO at 03/09/19 20:23
[2019-03-09 18:36] LABS: Abs Immature Grans 0.02 k/cumm (0.0-0.09); Absolute Basophil Count 0.05 k/cumm (0.0-0.2); Absolute Eosinophil Count 0.37 k/cumm (0.0-0.7); Absolute Lymphocyte Count 2.85 k/cumm (1.2-3.4); Absolute Monocyte Count 0.94 k/cumm (0.11-0.7); Basophils % 0.7; Eosinophils % 5.1; HCT 40.2 % (40.0-50.0); HGB 13.4 g/dL (13.5-17.5); Immature Grans % 0.3; Lymphocytes % 39.4; Mean Corp. HGB Concentration 33.3 g/dL (32.0-36.0); Mean Corpuscular Hemoglobin 28.3 pg (27.0-33.0); Mean Platelet Volume 9.8 fL (8.0-11.0); Neutrophils % 41.5; Platelet Count 248 x1000/uL (130-400); RBC 4.73 m/cumm (4.50-6.00); RBC Distribution Width 13.4 % (11.8-14.1); White Blood Cell Count 7.23 k/cumm (4.4-10.8)
[2019-03-09 18:44] LABS: Lactate 1.3 mmol/L (0.6-1.4)
[2019-03-09 18:46] LABS: PTT Activated 22.7 sec (21.0-31.4); Prothrombin Time 9.9 sec (9.3-11.0)
[2019-03-09 18:49] LABS: ALT 23 U/L (16-63); AST 18 U/L (15-37); Albumin 3.7 g/dL (3.4-5.0); Alkaline Phosphatase 69 U/L (46-116); Anion Gap 8.4 mmol/L (3-11); BUN 15 mg/dL (7-18); Bilirubin, Total 0.3 mg/dL (0.2-1.0); CO2 27.6 mmol/L (21.0-32.0); CREATININE 1.11 mg/dL (0.70-1.30); Calcium 8.7 mg/dL (8.5-10.1); Chloride 102 mmol/L (98-107); Glucose 127 mg/dL (70-100); Magnesium 2.1 mg/dL (1.8-2.4); Potassium 3.3 mmol/L (3.5-5.1); Sodium 138 mmol/L (136-145); Total Protein 7.7 g/dL (6.4-8.2)
[2019-03-09 18:55] LABS: Troponin I < 0.05 ng/mL (0.00-0.06)
[2019-03-09 18:59] LABS: Salicylate < 2.8 mg/dL (2.8-20.0)
--- NOTE | 2019-03-09 19:01 | DI.VRAD_ITS ---
PROCEDURE INFORMATION: Exam: CT Head Without Contrast Exam date and time: 03/09/2019 6:44 PM Clinical history: 58 years old, male; Dizziness TECHNIQUE: Imaging protocol: Computed tomography of the head without contrast. COMPARISON: No relevant prior studies available. FINDINGS: Brain: Normal. No hemorrhage. Unremarkable white matter. No mass effect. Ventricles: Normal. No ventriculomegaly. Bones/joints: Unremarkable. No acute fracture. Sinuses: Visualized sinuses are unremarkable. No fluid levels. Mastoid air cells: Visualized mastoid air cells are well aerated. Soft tissues: Unremarkable. Other findings: There is polyp/mass in the posterior left choana. IMPRESSION: No acute intracranial abnormality. Dictated and Authenticated by: Mitchell Patricia MD. Ordering:GHAZAL Betts MD
--- NOTE | 2019-03-09 19:03 | DI.VRAD_ITS ---
PROCEDURE INFORMATION: Exam: XR Chest, 2 Views Exam date and time: 03/09/2019 6:32 PM Clinical history: 58 years old, male; Shortness of breath TECHNIQUE: Imaging protocol: XR of the chest Views: 2 views. COMPARISON: CR CHEST 2 VIEWS PA,LAT 11/23/2012 3:31 PM FINDINGS: Lungs: Unremarkable. No consolidation. Pleural space: Unremarkable. No pleural effusion. No pneumothorax. Heart/Mediastinum: Unremarkable. No cardiomegaly. Bones/joints: Degenerative changes of the spine IMPRESSION: No acute abnormality. Dictated and Authenticated by: Mitchell Patricia MD. Ordering:GHAZAL Betts MD
[2019-03-09 19:07] LABS: ETHANOL BLOOD < 3.0 mg/dL (<3)
[2019-03-09 19:10] LABS: Acetaminophen < 2 ug/mL (10-30)
[2019-03-09] MEDS: Normal Saline Flush 10 ML SYR IVP (19:11)
[2019-03-09] MEDS: Meclizine 25 MG TAB (19:12)
[2019-03-09 19:43] LABS: Bilirubin Negative (Negative); Blood Negative (Negative); Clarity Clear (Clear); Glucose Negative (Negative); Ketones Negative (Negative); Leukocyte Esterase Negative (Negative); Nitrite Negative (Negative); Specific Gravity 1.025 (1.005-1.025)
[2019-03-09 19:51] LABS: *AMPHETAMINES SCREEN URINE Negative (Negative); *BARBITURATES SCREEN URINE Negative (Negative); *BENZODIAZEPINES SCREEN URINE Negative (Negative); Cannabinoids THC POSITIVE (Negative); Cocaine Screen,Urine POSITIVE (Negative); METHADONE URINE SCREEN Negative (Negative); OPIATES URINE SCREEN Negative (Negative)
[2019-03-09 20:04] LABS: Tricyclic Antidepressants Negative (Negative)
[2019-03-09] MEDS: diazePAM 5 MG TAB PO (22:02)
[2019-03-09] MEDS: Meclizine 25 MG TAB PO (23:13)
[2019-03-09 23:28] LABS: Troponin I < 0.05 ng/mL (0.00-0.06)
[2019-03-10] VITALS (16 sets, daily range): BP systolic 129–156; BP diastolic 83–100; PULSE 55–82; RESP 11–19; TEMP 36.3–37.6; O2SAT 95–99
--- NOTE | 2019-03-10 00:01 | NUR.NOTE ---
Nursing Note: attempted to stand pt up for the second time. any time he moves he gets hot all over and became nauseated due to dizziness.
--- NOTE | 2019-03-10 06:00 | W.PM.HP.N ---
Date of service: 03/10/19 Time of Service: 06:00 Assessment and Plan Assessment and plan (1) Vertigo: Status: Acute Assessment and plan: 1. Vertigo, certainly peripheral. Sounds like it may be abating. Will have PT see him and continue prn Meclizine. IVF until PO adequate (taking only ice chips at present) 2. Hypokalemia: will supplement. 3. +UDS for cocaine:incidental finding History of Present Illness History of Present Illness Chief Complaint: vertigo Narrative: 58 male presented initially with more non-specific sense of weakness but eventually transpired that he has been having one day of vertigo in (he tells me) the setting of recent URI. Vertigo is worse with movement of head, OK if he lies still, and accompanied by nausea. In ER, CT of head negative; received Meclizine and Valium but still unable to ambulate so admitted for further management. This morning he tells me he is feeling somewhat better, less intense, though he has not yet tried to get up. Review of Systems All systems reviewed & are unremarkable except as noted in HPI and below PFSH Medical History Alcohol consumption binge drinking Allergic rhinitis Chronic anxiety Chronic low back pain Chronic obstructive lung disease Degenerative joint disease Depression Erectile dysfunction Hamstring tendinitis hypertension,borderline Onychomycosis Prediabetes Tobacco dependency Surgical History Colonoscopy - MAC (12/01/17) eye surgery trauma as a child H/O right inguinal hernia repair (Acute) S/P left inguinal hernia repair (Acute) 12/10/18, Dr Shanice Benavidez, [facility] Family History Mother , cancer Personal history of malignant neoplasm Father No problems noted. Social History Smoking/Tobacco Use Status: Current every day Alcohol Intake: current Alcohol Intake frequency: 0-2 drinks per day Alcohol type: beer Drug use: Daily Substance use type: marijuana Additional Social history: homeless. Pt will be staying temporarily with Daughter, Melissa, following procedure. Meds Home Medications and Allergies Home Medications Medication Instructions Recorded Confirmed Type cetirizine 10 mg PO DAILY tab-cap 09/26/17 03/09/19 History sildenafil [Viagra] 50 mg PO PRN 09/26/17 03/09/19 History albuterol sulfate 2 puff INHALATION QID 12/03/18 03/09/19 History lisinopril-hydrochlorothiazide 1 tab PO DAILY 03/09/19 03/09/19 History Allergies Allergy/AdvReac Type Severity Reaction Status Date / Time No Known Allergies Allergy Verified 03/09/19 18:29 Exam Narrative Exam Narrative: 131/86, 82, 17, 36.8. HEENT no nystagmus, declines [place]-Hallpike testing. neck supple; lungs clear; heart occasional ectopic (compensated); abdomen soft NT; extremities no edema, pulse equal; neuro Ox3, CN intact, motor 5/5 Results Labs Result diagrams: 03/09/19 18:25 03/09/19 18:25 Labs: Laboratory Results - last 24 hr 03/09/19 03/09/19 03/09/19 18:25 18:25 18:25 WBC 7.23 RBC 4.73 Hgb 13.4 L Hct 40.2 MCV 85.0 MCH 28.3 MCHC 33.3 RDW 13.4 Plt Count 248 MPV 9.8 Immature Gran % 0.3 Neutrophils % 41.5 Lymphocytes % 39.4 Monocytes % 13.0 Eosinophils % 5.1 Basophils % 0.7 Absolute Neutrophils 3.00 Absolute Lymphocytes 2.85 Absolute Monocytes 0.94 H Absolute Eosinophils 0.37 Absolute Basophils 0.05 PT 9.9 INR 1.0 APTT 22.7 Sodium 138 Potassium 3.3 L Chloride 102 Carbon Dioxide 27.6 Anion Gap 8.4 BUN 15 Creatinine 1.11 Estimated GFR/1.73 m2 >= 60.00 Glucose 127 H Lactate Calcium 8.7 Magnesium 2.1 Total Bilirubin 0.3 AST 18 ALT 23 Alkaline Phosphatase 69 Troponin I < 0.05 Total Protein 7.7 Albumin 3.7 Urine Color Urine Clarity Urine pH Ur Specific Krypton Urine Protein Urine Ketones Urine Blood Urine Nitrite Urine Bilirubin Urine Urobilinogen Ur Leukocyte Esterase Urine Glucose Salicylates Urine Opiates Screen Urine Methadone Screen Acetaminophen Ur Barbiturates Screen Ur Tricyclics Screen Ur Amphetamines Screen U Benzodiazepines Scrn Urine Cocaine Screen Ur THC Screen Ethyl Alcohol 03/09/19 03/09/19 03/09/19 18:25 18:25 18:40 WBC RBC Hgb Hct MCV MCH MCHC RDW Plt Count MPV Immature Gran % Neutrophils % Lymphocytes % Monocytes % Eosinophils % Basophils % Absolute Neutrophils Absolute Lymphocytes Absolute Monocytes Absolute Eosinophils Absolute Basophils PT INR APTT Sodium Potassium Chloride Carbon Dioxide Anion Gap BUN Creatinine Estimated GFR/1.73 m2 Glucose Lactate 1.3 Calcium Magnesium Total Bilirubin AST ALT Alkaline Phosphatase Troponin I Total Protein Albumin Urine Color Urine Clarity Urine pH Ur Specific Krypton Urine Protein Urine Ketones Urine Blood Urine Nitrite Urine Bilirubin Urine Urobilinogen Ur Leukocyte Esterase Urine Glucose Salicylates < 2.8 L Urine Opiates Screen Urine Methadone Screen Acetaminophen < 2 L Ur Barbiturates Screen Ur Tricyclics Screen Ur Amphetamines Screen U Benzodiazepines Scrn Urine Cocaine Screen Ur THC Screen Ethyl Alcohol < 3.0 03/09/19 03/09/19 03/09/19 19:30 19:30 22:54 WBC RBC Hgb Hct MCV MCH MCHC RDW Plt Count MPV Immature Gran % Neutrophils % Lymphocytes % Monocytes % Eosinophils % Basophils % Absolute Neutrophils Absolute Lymphocytes Absolute Monocytes Absolute Eosinophils Absolute Basophils PT INR APTT Sodium Potassium Chloride Carbon Dioxide Anion Gap BUN Creatinine Estimated GFR/1.73 m2 Glucose Lactate Calcium Magnesium Total Bilirubin AST ALT Alkaline Phosphatase Troponin I < 0.05 Total Protein Albumin Urine Color Yellow Urine Clarity Clear Urine pH 6.0 Ur Specific Krypton 1.025 Urine Protein Negative Urine Ketones Negative Urine Blood Negative Urine Nitrite Negative Urine Bilirubin Negative Urine Urobilinogen 1.0 H Ur Leukocyte Esterase Negative Urine Glucose Negative Salicylates Urine Opiates Screen Negative Urine Methadone Screen Negative Acetaminophen Ur Barbiturates Screen Negative Ur Tricyclics Screen Negative Ur Amphetamines Screen Negative U Benzodiazepines Scrn Negative Urine Cocaine Screen Positive A Ur THC Screen Positive A Ethyl Alcohol Last Vital Signs Temp 36.8 C 03/10/19 03:43 Pulse 82 03/10/19 03:43 Resp 17 03/10/19 03:43 BP 131/86 03/10/19 03:43 Pulse Ox 98 03/10/19 03:43
[2019-03-10] MEDS: Normal Saline Flush 10 ML SYR IVP (06:46)
[2019-03-10] MEDS: POTASSIUM CHLORIDE/D5-0.9%NACL 1,000 ML 100 MEQ IV ×2 (06:46→18:52)
[2019-03-10] MEDS: Lisinopril 10 MG TAB PO (08:03)
[2019-03-10] MEDS: hydroCHLOROthiazide 12.5 MG TAB PO (08:03)
--- NOTE | 2019-03-10 09:54 | PDOC.CMIN ---
Care Management Initial Assess REASON FOR HOSPITALIZATION:: Vertigo, Bradycardia PAST MEDICAL HISTORY/PAST SURGICAL HISTORY:: Alcohol consumption binge drinking, allergic rhinitis, chronic anxiety, chronic low back pain, chronic obstructive lung disease, degenerative joint disease, depression, erectile dysfunction, hamstring tendinitis, hypertension-borderline, onychomycosis, prediabetes, tobacco dependency, colonoscopy, eye surgery, right inguinal hernia repair, left inguinal hernia repair. PREVIOUS FUNCTIONAL STATUS/SOCIAL/FAMILY SUPPORTS:: Ary is , lists a significant other, Kae as next of kin and has a daughter, Natalie who resides locally in [facility] and is his person to notify. Currently, Ary does not have a residence and has been staying in his car. CURRENT FUNCTIONAL STATUS:: Ary is sleeping when CM attempts to meet with him. He struggles with ongoing dizzyness and has struggled to open his eyes and engage meaningfully today with staff, per provider. ADVANCE DIRECTIVES:: None on file at [facility] Has patient been provided with information about the portal?: Yes Did the patient sign up for the portal?: Yes (Previously) CODE STATUS:: Full Code INSURANCE COVERAGE / FINANCIAL ISSUES:: Medicaid. Medicare CURRENT HOME/COMMUNITY SERVICES/EQUIPMENT:: No current services or equipment at this time. PRIMARY CARE PHYSICIAN:: Jin Payan MD. POTENTIAL DISCHARGE NEEDS:: CM to connect with PCP Veterinarian Helper, CHRISTINE and girls swimming coach re: disposition and increased services/housing. PATIENT/FAMILY EDUCATION NEEDS:: Resources for housing, service connection, follow up appointments. ANTICIPATED BARRIERS TO DISCHARGE:: None identified at this time. TRANSPORTATION:: Via private vehicle. PLAN:: Ary will discharge when ready per MD. CM will provide resources for service connection upon discharge.
--- NOTE | 2019-03-10 10:30 | W.PM.PROGNOT ---
Date of Service Date of service: 03/10/19 Time of Service: 10:30 Assessment and Plan Assessment and plan (1) Dizziness: Status: Acute Assessment and plan: MRI/MRA brain ordered to rule out posterior CVA. Brain MRI showing Foci of restricted diffusion in the left cerebellum suspicious for subacute infarcts. Schedule meclizine. Continue IV fluids until tolerating orals. Zofran for nausea. Add statin therapy, daily aspirin. Monitor on telemetry, echo ordered. Lipid panel, TSH, Hgb A1c in the morning. Neurology consult placed. (2) Vertigo: Status: Acute Assessment and plan: Has had vertigo in the past. See above. (3) Upper respiratory infection: Status: Acute Assessment and plan: With left ear congestion. Chest x-ray negative, afebrile. Sudafed as needed. Rapid flu pending. (4) Chronic obstructive lung disease: Status: None Assessment and plan: Current smoker. No oxygen requirement. Nebulizer treatments as needed. (5) DVT prophylaxis: Status: Acute Assessment and plan: Subcutaneous Lovenox. (6) Discharge planning issues: Status: Acute Assessment and plan: He is a full code. He sleeps in his car or stays at his daughter's house when he is taking care of her children. This case was discussed with Dr. Marcum who is in agreement. Subjective Subjective Interval history since last seen: David reports mild improvement in his symptoms today. He can open his eyes briefly without severe dizziness. Last night he was unable to open his eyes. He continues to have dizziness/feel like he is on a boat when he moves. He feels nauseated intermittently, especially with any movement. He began having URI symptoms 2 days ago, including a cough productive of clear sputum, nasal congestion, left ear congestion/muffled sound, no fever. His chest x-ray was negative for any acute process. Flu swab is pending. He denies chest pain/pressure, palpitations. His appetite is poor, due to nausea. He is emptying his bladder as usual. He has not had a bowel movement since he has been in the hospital. He reports that he does smoke cigarettes, up to half a pack per day. He also smokes marijuana and vapes marijuana. He occasionally drinks alcohol but has not had any alcohol in weeks. He used cocaine 2 days ago. He also reports that he sleeps in his car or states that his daughter's house when he is babysitting her children. Exam Narrative Exam Narrative: General: Middle-aged man, lying in bed with eyes closed, opens eyes briefly. Laying very still in the bed. Answers questions appropriately, alert and oriented, pleasant cooperative. HEENT: Subtle vertical nystagmus noted. Pupils equal and round. Poor dentition, mucous membranes moist. Neck: Supple, no JVD. Cardiovascular: Heart has regular rate and rhythm, no murmur appreciated. Respiratory: Respirations appear even and unlabored. Inspiratory and expiratory wheezing noted, no rales. GI: Normoactive bowel sounds throughout, abdomen soft, nontender on palpation, no masses appreciated. Extremities: No clubbing, cyanosis or edema. Objective Objective Clinical Data: Abnormal lab results 03/09/19 03/09/19 03/09/19 Range/Units 18:25 18:25 18:25 Hgb 13.4 L (13.5-17.5) g/dL Absolute Monocytes 0.94 H (0.11-0.7) k/cumm Potassium 3.3 L (3.5-5.1) mmol/L Glucose 127 H (70-100) mg/dL Urine Urobilinogen (Up TO 0.2) EU/dL Salicylates < 2.8 L (2.8-20.0) mg/dL Acetaminophen < 2 L (10-30) ug/mL Urine Cocaine Screen (Negative) Ur THC Screen (Negative) 03/09/19 03/09/19 Range/Units 19:30 19:30 Hgb (13.5-17.5) g/dL Absolute Monocytes (0.11-0.7) k/cumm Potassium (3.5-5.1) mmol/L Glucose (70-100) mg/dL Urine Urobilinogen 1.0 H (Up TO 0.2) EU/dL Salicylates (2.8-20.0) mg/dL Acetaminophen (10-30) ug/mL Urine Cocaine Screen Positive A (Negative) Ur THC Screen Positive A (Negative) Vital Signs Temperature 36.8 C 03/10/19 03:43 Temperature Source Tympanic 03/10/19 03:43 Pulse 82 03/10/19 03:43 Pulse Rhythm Irregular 03/10/19 08:06 Pulse 63 03/10/19 00:16 Respiratory Rate 17 03/10/19 03:43 Respiratory Effort 03/10/19 08:06 Respiratory Depth Normal 03/10/19 08:06 Respiratory Pattern Normal 03/10/19 08:06 Blood Pressure 131/86 03/10/19 03:43 Blood Pressure Mean 100 03/10/19 00:16 Pulse Oximetry 98 03/10/19 03:43 Oxygen Delivery Method Room Air 03/10/19 03:43 Oxygen Flow Rate 0 03/10/19 03:43 Pain Level 0 03/10/19 03:43 Intake & Output 03/09/19 03/09/19 03/10/19 11:59 23:59 11:59 Intake Total 3000.000 / 3000.000 168.333 / 168.333 Output Total 500 / 500 Balance 3000.000 / 3000.000 -331.667 / -331.667 Weight 74.843 kg 74 kg Intake: IV 3000.000 / 3000.000 138.333 / 138.333 Oral Output: Urine 400 / 400 Emesis 100 / 100 Other: Urine Color Yellow Urine Appearance Clear Urine Odor Normal Emesis Description Undigested Food Voiding Methods Urinal Laboratory Results WBC 7.23 k/cumm (4.4-10.8) 03/09/19 18:25 RBC 4.73 m/cumm (4.50-6.00) 03/09/19 18:25 Hgb 13.4 g/dL (13.5-17.5) L 03/09/19 18:25 Hct 40.2 % (40.0-50.0) 03/09/19 18:25 MCV 85.0 fL (80-95) 03/09/19 18:25 MCH 28.3 pg (27.0-33.0) 03/09/19 18:25 MCHC 33.3 g/dL (32.0-36.0) 03/09/19 18:25 RDW 13.4 % (11.8-14.1) 03/09/19 18:25 Plt Count 248 x1000/uL (130-400) 03/09/19 18:25 MPV 9.8 fL (8.0-11.0) 03/09/19 18:25 Immature Gran % 0.3 03/09/19 18:25 Neutrophils % 41.5 03/09/19 18:25 Lymphocytes % 39.4 03/09/19 18:25 Monocytes % 13.0 03/09/19 18:25 Eosinophils % 5.1 03/09/19 18:25 Basophils % 0.7 03/09/19 18:25 Absolute Neutrophils 3.00 k/cumm (1.2-6.7) 03/09/19 18:25 Absolute Lymphocytes 2.85 k/cumm (1.2-3.4) 03/09/19 18:25 Absolute Monocytes 0.94 k/cumm (0.11-0.7) H 03/09/19 18:25 Absolute Eosinophils 0.37 k/cumm (0.0-0.7) 03/09/19 18:25 Absolute Basophils 0.05 k/cumm (0.0-0.2) 03/09/19 18:25 PT 9.9 sec (9.3-11.0) 03/09/19 18:25 INR 1.0 (0.9-1.1) 03/09/19 18:25 APTT 22.7 sec (21.0-31.4) 03/09/19 18:25 Sodium 138 mmol/L (136-145) 03/09/19 18:25 Potassium 3.3 mmol/L (3.5-5.1) L 03/09/19 18:25 Chloride 102 mmol/L (98-107) 03/09/19 18:25 Carbon Dioxide 27.6 mmol/L (21.0-32.0) 03/09/19 18:25 Anion Gap 8.4 mmol/L (3-11) 03/09/19 18:25 BUN 15 mg/dL (7-18) 03/09/19 18:25 Creatinine 1.11 mg/dL (0.70-1.30) 03/09/19 18:25 Estimated GFR/1.73 m2 >= 60.00 (mL/min/1.73m2) 03/09/19 18:25 Glucose 127 mg/dL (70-100) H 03/09/19 18:25 Lactate 1.3 mmol/L (0.6-1.4) 03/09/19 18:40 Calcium 8.7 mg/dL (8.5-10.1) 03/09/19 18:25 Magnesium 2.1 mg/dL (1.8-2.4) 03/09/19 18:25 Total Bilirubin 0.3 mg/dL (0.2-1.0) 03/09/19 18:25 AST 18 U/L (15-37) 03/09/19 18:25 ALT 23 U/L (16-63) 03/09/19 18:25 Alkaline Phosphatase 69 U/L (46-116) 03/09/19 18:25 Troponin I < 0.05 ng/mL (0.00-0.06) 03/09/19 22:54 Total Protein 7.7 g/dL (6.4-8.2) 03/09/19 18:25 Albumin 3.7 g/dL (3.4-5.0) 03/09/19 18:25 Urine Color Yellow (Yellow) 03/09/19 19:30 Urine Clarity Clear (Clear) 03/09/19 19:30 Urine pH 6.0 (5-8) 03/09/19 19:30 Ur Specific Alpine 1.025 (1.005-1.025) 03/09/19 19:30 Urine Protein Negative mg/dL (Negative) 03/09/19 19:30 Urine Ketones Negative mg/dL (Negative) 03/09/19 19: Urine Blood Negative (Negative) 03/09/19 19:30 Urine Nitrite Negative (Negative) 03/09/19 19:30 Urine Bilirubin Negative (Negative) 03/09/19 19: Urine Urobilinogen 1.0 EU/dL (Up TO 0.2) H 03/09/19 19:30 Ur Leukocyte Esterase Negative (Negative) 03/09/19 19:30 Urine Glucose Negative mg/dL (Negative) 03/09/19 19:30 Salicylates < 2.8 mg/dL (2.8-20.0) L 03/09/19 18:25 Urine Opiates Screen Negative (Negative) 03/09/19 19:30 Urine Methadone Screen Negative (Negative) 03/09/19 19:30 Acetaminophen < 2 ug/mL (10-30) L 03/09/19 18:25 Ur Barbiturates Screen Negative (Negative) 03/09/19 19:30 Ur Tricyclics Screen Negative (Negative) 03/09/19 19:30 Ur Amphetamines Screen Negative (Negative) 03/09/19 19:30 U Benzodiazepines Scrn Negative (Negative) 03/09/19 19:30 Urine Cocaine Screen Positive (Negative) A 03/09/19 19:30 Ur THC Screen Positive (Negative) A 03/09/19 19:30 Ethyl Alcohol < 3.0 mg/dL (<3) 03/09/19 18:25
--- NOTE | 2019-03-10 11:45 | PT.INNT ---
Date of service: 03/10/19 Time of Service: 11:30 PT Notes Colette-Hallpike Testing was attempted but patient was unable to tolerate the starting position. His eyes were closed and when asked to open them, he complained of increased symptoms and requested to lie back down. Patient is unable to tolerate at this time and was informed that another attempt will be made at testing this afternoon. Will notify MD and nurse regarding patient response. Thank you very much for this referral. Mya Celis PT, DPT, CLT [facility] is
[2019-03-10 11:46] LABS: Anion Gap 8.5 mmol/L (3-11); BUN 8 mg/dL (7-18); CO2 25.5 mmol/L (21.0-32.0); CREATININE 0.81 mg/dL (0.70-1.30); Chloride 105 mmol/L (98-107); Glucose 125 mg/dL (70-100); Potassium 3.4 mmol/L (3.5-5.1); Sodium 139 mmol/L (136-145)
--- NOTE | 2019-03-10 12:02 | PHARADMIT ---
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 Objective BP-172/98 K+3.6 H&H,Plts,SCr-OK, No BM yet Assessment ASA, Lipitor and meclizine ordred Plan Treat Nausea continue PT Original Note: Admission Pharmacy Clinical Review Vertigo/dizziness Code Status Full Code Current Weight 74 kg Renally Cleared and Narrow Therapeutic Index Meds CrCl~95ml/min QTc Value / Action Taken QTC 479 (Zofran IV-not dispensed) BP Control, Fever BP 139/83 Afebrile Electrolytes reviewed K+ 3.4 (IVF's with KCL) Mag 2.0 DVT Prophylaxis Lovenox 40mg Opiate Usage / Scheduled Bowel Regimen Ordered none Plt/SCr for Heparin / Enoxaparin Plt 248 SCr 0.81 INR for Warfarin H/H stable, WBC/Bands H/H 13.4/40.2 WBC 7.23 Antibiotic appropriateness none Cultures and Sensitivities flu swab negative Surgical ABX d/c within 24 hr DM control / Insulin Dosing BG 125 Heart Failure (Check EF%) (RADHA's, B-Block, Diuretics) HCTZ, Lisinopril IV to PO Switch Home Meds Reviewed Home Meds Not Ordered Cetirizine, Sidenafil Comments PT eval for Vertigo, possible steroid burst mentioned MRI brain today to rule out CVA Tox screen + for cocaine and THC
--- NOTE | 2019-03-10 12:35 | DI.MRI_ITS ---
EXAM: MR ANGIO BRAIN WO CLINICAL HISTORY: vertigo,gait instability,cocaine use,r/o cva. TECHNIQUE: Multiplanar multisequence MRI was performed. COMPARISON: No exams were available for comparison FINDINGS: The internal carotid arteries are unremarkable. No occlusion, aneurysm or significant stenosis is pr esent. The anterior cerebral arteries are unremarkable. No occlusion, aneurysm or significant stenosis is p resent. The middle cerebral arteries are unremarkable. No aneurysm, occlusion, or significant stenosis is pr esent. The right posterior cerebral artery arises from the posterior communicating artery. This is a normal variant. The posterior cerebral arteries are otherwise unremarkable. No occlusion, aneurysm or sig nificant stenosis is present. The basilar artery is unremarkable. No occlusion, aneurysm or significant stenosis is present. IMPRESSION: No acute arterial pathology.
--- NOTE | 2019-03-10 12:52 | DI.MRI_ITS ---
EXAM: MR BRAIN WO CLINICAL HISTORY: vertigo,gait instability,cocaine use,r/o cva. TECHNIQUE: Multiplanar multisequence MRI was performed. COMPARISON: MR ANGIO BRAIN WO from 03/10/2019 FINDINGS: There are several foci of restricted diffusion in the left cerebellum consistent with subacute infarc ts. The ventricles and sulci are consistent with the patient's age. There are a few foci of hyperin tense signal seen in the white matter on the T2 and FLAIR images. This may represent small-vessel is chemic disease are other demyelinating process. The ventricles are intact. The basilar cisterns are patent. There is no acute midline shift or mass effect. The pituitary gland appears grossly unrema rkable. There is a 2 x 1.3 cm mass in the left nasal passageway. It is isointense to muscle on the T1 weighted images and hyperintense on the T2 weighted images. No intracranial hemorrhage is present . IMPRESSION: 1. Foci of restricted diffusion in the left cerebellum suspicious for subacute infarcts. 2. Soft tissue mass in the left nasal passageway, which could represent a nasal polyp/mass. 3. A few hyperintense foci in the white matter. This may reflect early small vessel ischemic disease are other demyelinating process.
--- NOTE | 2019-03-10 13:10 | DI.MRI_ITS ---
EXAM: MR ANGIO NECK WO CLINICAL HISTORY: vertigo,gait instability,cocaine use,r/o cva. TECHNIQUE: Multiplanar multisequence MRI was performed. COMPARISON: No exams were available for comparison FINDINGS: There is patient motion artifact. The common carotid arteries are unremarkable. No evidence of occlusion or significant stenosis is pr esent. The external carotid arteries are unremarkable. No evidence of significant stenosis or occlusion is present. The internal carotid arteries are unremarkable. No evidence of occlusion or significant stenosis is present. The vertebral arteries are unremarkable. No evidence of significant stenosis or occlusion is present . IMPRESSION: 1. Patient motion artifact. 2. No acute arterial pathology.
[2019-03-10] MEDS: Enoxaparin 40 MG/0.4 ML SYR SC (13:31)
[2019-03-10] MEDS: Meclizine 25 MG TAB PO (13:32)
--- NOTE | 2019-03-10 15:50 | CHAPLAIN ---
Marloisaias was just returning to his room, when I visited. He did not appear to be comfortable. I didn't stay long. His son was with him, and left when I did.
--- NOTE | 2019-03-10 16:21 | W.NEUROCONSU ---
Date of service: 03/10/19 Time of Service: 16:21 Assessment and Plan Assessment and plan (1) Vertigo: Status: Acute (2) Thrombotic stroke involving cerebellar artery: Status: Acute (3) Cocaine use: Status: Acute Assessment and plan: Mr. Davalos is a 58 year-old, right-handed man admitted with vertigo, nausea, and emesis found to have a subacute left cerebellar stroke in the setting of cocaine use. 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 However, he should continue his work-up with a TTE, lipid panel, A1c, and ongoing telemetry. He should continue aspirin 81gm daily with atorvastatin. Continue to treat nausea and PT/OT as tolerated. Ok to use meclizine prn but I don't know that it will be very helpful. History of Present Illness History of Present Illness Chief Complaint: stroke Narrative: Handedness: right. HPI: Mr. Davalos is a 58 year-old man with a PMHx of polysubstance and ETOH abuse, Hypertension, COPD, ED, and recent homelessness. He presented to the ED yesterday around 630pm with acute onset vertigo, nausea, emesis, and gait imbalance starting around 2pm. Additionally, he appeared drowsy and diaphoretic with pinpoint pupils. In the ER, his BP was 137/81 with a normal EKG. He underwent a CT head which I was able to review and was unremarkable. Laboratory work-up was significant for +cocaine UDS (used 03/08/19). He was unable to even sit up in bed after IVF and meclizine and thus was admitted for further work-up. He describes vertigo, persistent at rest, worse with movement, and better with eyes closed. His symptoms have improved overnight, but is still unable to tolerate much movement. He has no focal weakness. He was not on antiplatelets prior to admission. He smoke 1/2 ppd. He has since undergone the below work-up significant for a left cerebellar infarct. He has been started on aspirin 81mg daily and pravastatin 80mg. Work-up: -CTH: no acute findings. -MRI brain: subacute linear area of scattered ischemic infarct in the left cerebellum. I reviewed these images personally. -MRA head and neck: the nexk imaging is limited by motion artifact but does appear to have some atherosclerosis at the carotid bifurcations bilaterally, not significant. I reviewed these images personally. Consults Requesting physician: Camille Levine Review of Systems All systems reviewed & are unremarkable except as noted in HPI and below PFSH Medical History Alcohol consumption binge drinking Allergic rhinitis Chronic anxiety Chronic low back pain Chronic obstructive lung disease Degenerative joint disease Depression Erectile dysfunction Hamstring tendinitis hypertension,borderline Onychomycosis Prediabetes Tobacco dependency Surgical History Colonoscopy - MAC (12/01/17) eye surgery trauma as a child H/O right inguinal hernia repair (Acute) S/P left inguinal hernia repair (Acute) 12/10/18, Dr Shanice Benavidez, [facility] Family History Mother , cancer Personal history of malignant neoplasm Father Stroke Hypertension Social History Smoking/Tobacco Use Status: Current every day Alcohol Intake: current Alcohol Intake frequency: 0-2 drinks per day Alcohol type: beer Drug use: Daily Substance use type: marijuana Additional Social history: homeless. Pt will be staying temporarily with DaughterMelissa, following procedure. Visit Medication and Allergies Active Medications Generic Name Dose Route Start Last Admin Trade Name Freq PRN Reason Stop Dose Admin Acetaminophen 650 mg 03/09/19 23:52 Tylenol DC Q6H PRN PRN Albuterol Sulfate 2 puff 03/10/19 07:15 Ventolin Hfa IH QID PRN PRN Dyspnea Albuterol/Ipratropium 3 ml 03/10/19 10:50 Duoneb Updraft UPD Q6H PRN PRN Aspirin 81 mg 03/11/19 08:30 PO DAILY PURA Docusate Sodium 100 mg 03/10/19 20:00 Colace PO TID PURA Enoxaparin Sodium 40 mg 03/11/19 12:00 Lovenox SC Q24H PURA Famotidine 20 mg 03/10/19 14:25 Pepcid PO BID PRN PRN Hydrochlorothiazide 12.5 mg 03/10/19 08:30 03/10/19 08:03 Hydrodiuril PO 12.5 mg QAM PURA Administration Potassium Chloride/Dextrose/Sod Cl 1,000 mls @ 100 mls/hr 03/10/19 06:30 03/10/19 08:09 Kcl 20meq/D5-0.9% Nacl IV Infused INFUSION PURA Infusion IV Miscellaneous Supplies 1 each 03/09/19 18:30 IV DIRECTED PURA Lisinopril 10 mg 03/10/19 08:30 03/10/19 08:03 Prinivil PO 10 mg DAILY PURA Administration Meclizine HCl 25 mg 03/10/19 14:00 03/10/19 13:32 Antivert PO 25 mg TID PURA Administration Ondansetron HCl 4 mg 03/09/19 23:52 Zofran Injection IVP Q6H PRN PRN Pravastatin Sodium 80 mg 03/10/19 20:00 Pravachol PO QPM PURA Sodium Chloride 0 ml 03/09/19 18:26 03/10/19 06:46 Saline Flush 10 Ml Syringe IVP 10 ml PRN PRN Administration Sodium Chloride 0 ml 03/10/19 10:33 [place] Nasal [place]-[facility] NS QID PRN PRN Allergies No Known Allergies Allergy (Verified 03/09/19 18:29) Exam Narrative Exam Narrative: Physical Exam: Gen: Patient of apparent stated age; initially eye closed laying still in mild distress but by end of exam sitting up partially with eyes open and more interactive; Head and face: no facial or cranial abnormalities Neck: Supple, no meningismus, no occipital tenderness CV: + S1, S2, RRR, no murmur Resp: CTA B/L Abd: soft, nontender, nondistended Ext: No edema. No clubbing or cyanosis. No bony deformity. Neuro Exam: Language: fluency, naming, repetition, and comprehension intact; Mental Status: AAOx3, current events intact, fund of knowledge intact; Speech: no dysarthria Cranial nerves: Funduscopy: not performed CN II: visual gaona intact CN III, IV, : extraocular movements intact, no nystagmus, pupils symmetric and reactive to light CN V: face sensation intact to LT and PP CN VII: no facial asymmetry noted CN VIII: hearing intact bilaterally CN IX, X: palate rises symmetrically CN XI: trapezius/SCM 5/5 bilaterally CN XII: protrudes tongue symmetrically Sensory: intact to LT, PP in all extremities Motor: bulk and tone intact. Fine motor movements intact bilaterally. No pronator drift. Strength 5/5 throughout including the deltoids, biceps, triceps, wrist extensors, hip flexors, knee flexors, knee extensors, ankle flexors, and ankle extensors. Reflexes: 2+ at the biceps, triceps, brachioradialis, patella, and achilles tendons bilaterally; toes down going bilaterally; Coordination: FTN and HTS intact bilaterally Gait: patient unable to tolerate Results Last Vital Signs Temp 36.6 C 03/10/19 15:53 Pulse 65 03/10/19 15:53 Resp 17 03/10/19 15:53 BP 132/85 03/10/19 15:53 Pulse Ox 99 03/10/19 15:53 Labs Result diagrams: 03/09/19 18:25 03/10/19 11:27 Labs: Laboratory Results - last 24 hr 03/09/19 03/09/19 03/09/19 18:25 18:25 18:25 WBC 7.23 RBC 4.73 Hgb 13.4 L Hct 40.2 MCV 85.0 MCH 28.3 MCHC 33.3 RDW 13.4 Plt Count 248 MPV 9.8 Immature Gran % 0.3 Neutrophils % 41.5 Lymphocytes % 39.4 Monocytes % 13.0 Eosinophils % 5.1 Basophils % 0.7 Absolute Neutrophils 3.00 Absolute Lymphocytes 2.85 Absolute Monocytes 0.94 H Absolute Eosinophils 0.37 Absolute Basophils 0.05 PT 9.9 INR 1.0 APTT 22.7 Sodium 138 Potassium 3.3 L Chloride 102 Carbon Dioxide 27.6 Anion Gap 8.4 BUN 15 Creatinine 1.11 Estimated GFR/1.73 m2 >= 60.00 Glucose 127 H Lactate Calcium 8.7 Magnesium 2.1 Total Bilirubin 0.3 AST 18 ALT 23 Alkaline Phosphatase 69 Troponin I < 0.05 Total Protein 7.7 Albumin 3.7 Urine Color Urine Clarity Urine pH Ur Specific [place] Urine Protein Urine Ketones Urine Blood Urine Nitrite Urine Bilirubin Urine Urobilinogen Ur Leukocyte Esterase Urine Glucose Salicylates Urine Opiates Screen Urine Methadone Screen Acetaminophen Ur Barbiturates Screen Ur Tricyclics Screen Ur Amphetamines Screen U Benzodiazepines Scrn Urine Cocaine Screen Ur THC Screen Ethyl Alcohol 03/09/19 03/09/19 03/09/19 18:25 18:25 18:40 WBC RBC Hgb Hct MCV MCH MCHC RDW Plt Count MPV Immature Gran % Neutrophils % Lymphocytes % Monocytes % Eosinophils % Basophils % Absolute Neutrophils Absolute Lymphocytes Absolute Monocytes Absolute Eosinophils Absolute Basophils PT INR APTT Sodium Potassium Chloride Carbon Dioxide Anion Gap BUN Creatinine Estimated GFR/1.73 m2 Glucose Lactate 1.3 Calcium Magnesium Total Bilirubin AST ALT Alkaline Phosphatase Troponin I Total Protein Albumin Urine Color Urine Clarity Urine pH Ur Specific [place] Urine Protein Urine Ketones Urine Blood Urine Nitrite Urine Bilirubin Urine Urobilinogen Ur Leukocyte Esterase Urine Glucose Salicylates < 2.8 L Urine Opiates Screen Urine Methadone Screen Acetaminophen < 2 L Ur Barbiturates Screen Ur Tricyclics Screen Ur Amphetamines Screen U Benzodiazepines Scrn Urine Cocaine Screen Ur THC Screen Ethyl Alcohol < 3.0 03/09/19 03/09/19 03/09/19 19:30 19:30 22:54 WBC RBC Hgb Hct MCV MCH MCHC RDW Plt Count MPV Immature Gran % Neutrophils % Lymphocytes % Monocytes % Eosinophils % Basophils % Absolute Neutrophils Absolute Lymphocytes Absolute Monocytes Absolute Eosinophils Absolute Basophils PT INR APTT Sodium Potassium Chloride Carbon Dioxide Anion Gap BUN Creatinine Estimated GFR/1.73 m2 Glucose Lactate Calcium Magnesium Total Bilirubin AST ALT Alkaline Phosphatase Troponin I < 0.05 Total Protein Albumin Urine Color Yellow Urine Clarity Clear Urine pH 6.0 Ur Specific [place] 1.025 Urine Protein Negative Urine Ketones Negative Urine Blood Negative Urine Nitrite Negative Urine Bilirubin Negative Urine Urobilinogen 1.0 H Ur Leukocyte Esterase Negative Urine Glucose Negative Salicylates Urine Opiates Screen Negative Urine Methadone Screen Negative Acetaminophen Ur Barbiturates Screen Negative Ur Tricyclics Screen Negative Ur Amphetamines Screen Negative U Benzodiazepines Scrn Negative Urine Cocaine Screen Positive A Ur THC Screen Positive A Ethyl Alcohol 03/10/19 11:27 WBC RBC Hgb Hct MCV MCH MCHC RDW Plt Count MPV Immature Gran % Neutrophils % Lymphocytes % Monocytes % Eosinophils % Basophils % Absolute Neutrophils Absolute Lymphocytes Absolute Monocytes Absolute Eosinophils Absolute Basophils PT INR APTT Sodium 139 Potassium 3.4 L Chloride 105 Carbon Dioxide 25.5 Anion Gap 8.5 BUN 8 D Creatinine 0.81 Estimated GFR/1.73 m2 >= 60.00 Glucose 125 H Lactate Calcium 8.0 L Magnesium 2.0 Total Bilirubin AST ALT Alkaline Phosphatase Troponin I Total Protein Albumin Urine Color Urine Clarity Urine pH Ur Specific [place] Urine Protein Urine Ketones Urine Blood Urine Nitrite Urine Bilirubin Urine Urobilinogen Ur Leukocyte Esterase Urine Glucose Salicylates Urine Opiates Screen Urine Methadone Screen Acetaminophen Ur Barbiturates Screen Ur Tricyclics Screen Ur Amphetamines Screen U Benzodiazepines Scrn Urine Cocaine Screen Ur THC Screen Ethyl Alcohol
[2019-03-10] MEDS: Pantoprazole 40 MG VIAL IVP (18:51)
[2019-03-10] MEDS: Docusate Sodium 100 MG CAP PO (20:01)
[2019-03-10] MEDS: Pravastatin 40 MG TAB 80 MG PO (20:01)
[2019-03-10] MEDS: Potassium Chloride 20 MEQ TABCR 40 MEQ PO (20:01)
--- NOTE | 2019-03-10 20:35 | NUR.NOTE ---
Nursing Note: At 1900h telemetry check AUTOMOBILE [employer]CH[employer]IC [employer]OR noted abnormal QRS deflection present since initiation of telemetry around 1500h. When compared to ED EKG dated 03/09 this was a change. AUTOMOBILE MECHANIC MOTOR asked MS RN to check lead placement. With change in lead placement, lead II tracing returned to positive deflection with similar appearance to most recent EKG. ICU to continue to monitor telemetry.
[2019-03-11] VITALS (10 sets, daily range): BP systolic 143–172; BP diastolic 85–98; PULSE 65–73; RESP 16–19; TEMP 36.3–37.5; O2SAT 97–99
[2019-03-11 07:10] LABS: Abs Immature Grans 0.02 k/cumm (0.0-0.09); Absolute Basophil Count 0.04 k/cumm (0.0-0.2); Absolute Eosinophil Count 0.16 k/cumm (0.0-0.7); Absolute Lymphocyte Count 2.23 k/cumm (1.2-3.4); Absolute Monocyte Count 0.83 k/cumm (0.11-0.7); Absolute Neutrophil Count 3.88 k/cumm (1.2-6.7); Basophils % 0.6; Eosinophils % 2.2; HCT 38.2 % (40.0-50.0); HGB 12.6 g/dL (13.5-17.5); Immature Grans % 0.3; Lymphocytes % 31.1; Mean Corpuscular Hemoglobin 28.6 pg (27.0-33.0); Mean Corpuscular Volume 86.6 fL (80-95); Mean Platelet Volume 10.1 fL (8.0-11.0); Monocytes % 11.6; Neutrophils % 54.2; Platelet Count 298 x1000/uL (130-400); RBC 4.41 m/cumm (4.50-6.00); RBC Distribution Width 13.3 % (11.8-14.1); White Blood Cell Count 7.16 k/cumm (4.4-10.8)
[2019-03-11 07:12] LABS: Potassium 3.7 mmol/L (3.5-5.1)
[2019-03-11 07:23] LABS: Anion Gap 7.8 mmol/L (3-11); BUN 9 mg/dL (7-18); CO2 28.2 mmol/L (21.0-32.0); CREATININE 0.88 mg/dL (0.70-1.30); Calcium 8.2 mg/dL (8.5-10.1); Calculated LDL 100 mg/dL; Chloride 106 mmol/L (98-107); Cholesterol 158 mg/dL (50-200); Glucose 100 mg/dL (70-100); HDL Cholesterol 40 mg/dL (40-60); Potassium 3.6 mmol/L (3.5-5.1); Sodium 142 mmol/L (136-145); TSH 2.49 uIU/mL (0.36-3.74); Triglyceride 90 mg/dL (30-150)
--- NOTE | 2019-03-11 07:30 | DI.US_ITS ---
APPROVED REPORT Conclusion Left Ventricle : The left ventricle is normal size. The left ventricular ejection fraction is within the normal range. There is normal LV segmental wall motion. LVEF is 55-60%. Right Ventricle : The right ventricle is normal size. The right ventricular systolic function is norm al. Atria : The left atrium size is normal. The right atrium size is normal. Aortic Valve : The aortic valve is normal in structure. Aortic valve is trileaflet. There is no aorti c valvular stenosis. No aortic regurgitation is present. Mitral Valve : The mitral valve is normal in structure. No evidence of mitral valve stenosis. Trace m itral regurgitation. Tricuspid Valve : Tricuspid valve is grossly normal in structure and function. Mild tricuspid regurgi tation. Great Vessels : IVC is normal in size and collapses >50% with inspiration. RVSP=20-25 mmHg There is no prior study available for comparison. There is no echocardiographic evidence of cardiac source of emboli. EXAM: Comprehensive 2D, Doppler, and color-flow Echocardiogram Patient Location: In-Patient Room/Bed: 215A School Admissions Representative: MARTHA Woods ([place]) Indications: CVA Left Ventricle The left ventricle is normal size. The left ventricular ejection fraction is within the normal range. There is normal left ventricular wall thickness. There is normal LV segmental wall motion. The left ventricular diastolic function is normal. LVEF is 55-60%. Right Ventricle The right ventricle is normal size. The right ventricular systolic function is normal. Atria The left atrium size is normal. The right atrium size is normal. Aortic Valve The aortic valve is normal in structure. Aortic valve is trileaflet. There is no aortic valvular sten osis. No aortic regurgitation is present. Mitral Valve The mitral valve is normal in structure. No evidence of mitral valve stenosis. Trace mitral regurgita tion. Tricuspid Valve Tricuspid valve is grossly normal in structure and function. Mild tricuspid regurgitation. Pulmonic Valve Pulmonic valve is not well visualized. Trace pulmonic regurgitation. Great Vessels The aortic root is normal in size. IVC is normal in size and collapses >50% with inspiration. RVSP=20 -25 mmHg Pericardium There is no pericardial effusion. There is no pleural effusion. 2D Dimensions IVSd 0.91 cm M: 0.6-1.2 LV EDV A2C 123.65 mL PWd 0.94 cm M: 0.6 - 1.2 LV EDV A4C 138.08 mL LVDd 5.33 cm M: 4.2 - 5.9 LA Volume Index A2C 28.04 mL/m2 LVDs 2.91 cm M: 2.5 - 4.0 LA Volume Index A4C 22.13 mL/m2 Aortic Root 3.46 cm M: 3.1 - 3.7 LA Volume Index Biplane 26.96 mL/m2 Left Atrium 3.42 cm M: 3.0 - 4.0 LA Area A4C 14.52 cm2 RA Area A4C 10.85 cm2 LA Area A2C 17.70 cm2 LVOT 2.07 cm (M/F) 1.5-2.5 LA/Aortic Root Ratio 1.01 Ascending Aorta 3.60 cm M: 2.6 - 3.4 EF AP4 56.99 % LVEF (Teich) 76.17 % EF AP2 56.40 % LVEF (Boothe's) 56.06 % M: 52 - 72 EF BP 56.06 % FS 45.27 % LV Diastology E Decel Time 240.00 (160-240 msec) E/A Ratio 1.2 MED E' 0.08 (>0.07 m/s) LV E/e MED 8.29 (<14) LAT E' 0.07 (>0.1 m/s) LV E/e LAT 9.24 (<14) Aortic Valve LVOT Area 3.36 cm2 LVOT Peak Lawrence. 0.70 m/s LVOT Mean Lawrence. 0.44 m/s LVOT Peak Gr. 1.98 mmHg LVOT Mean Gr. 0.92 mmHg LVOT VTI 0.16 m AoV Peak Lawrence. 1.10 (0.5-1.3 m/s) AoV Mean Lawrence. 0.74 m/s AO Peak GR. 4.87 mmHg AO Mean GR. 2.45 (<5 mmHg) AO VTI 0.23 (0.18-0.25 m) YOU (VTI) 2.37 (2.5-4.5 cm2) YOU (VTI) Index 1.26 cm/m2 Mitral Valve MV E Max Lawrence. 0.63 (0.4-1.3 m/s) MV A Velocity 0.54 (0.4-1.3 m/s) E/A Ratio 1.17 MV Decel. Time 240.35 (160-240 msec) MV PHT 69.70 msec MVA PHT 3.16 cm2 Pulmonary Valve PV Peak Velocity 0.70 (0.5-1.5 m/s) Tricuspid Valve TR P. Velocity 2.23 m/s TV Regurg Vmax 2.23 m/s TR P. Gradient 19.94 mmHg
[2019-03-11] MEDS: Docusate Sodium 100 MG CAP PO ×3 (09:05→19:33)
[2019-03-11] MEDS: Aspirin 81 MG CHEW PO (09:05)
[2019-03-11] MEDS: Potassium Chloride 20 MEQ TABCR 40 MEQ PO ×2 (09:05→19:33)
[2019-03-11] MEDS: Normal Saline Flush 10 ML SYR IVP ×2 (09:06→16:26)
--- NOTE | 2019-03-11 10:45 | PT.INIE ---
Date of service: 03/11/19 Time of Service: 09:50 PT Notes Inpatient Physical Therapy Evaluation Date: 03/11/2019 Referring Doctor: Yasmani Munoz MD PT Orders: PT CONSULT: Limited ability Precautions: Fall. Standard. Activity as tolerated. Patient Profile/Admitting Diagnosis: Patient is a 58-year-old male patient with past medical history significant for ETOH abuse, polysubstabce abuse, HTN and COPD who presented to the ED on 03/09/2019 with chief presentation of persistent vertigo, nausea, emesis, and gait imbalance. Patient is diagnosed with thrombotic stroke involving the left cerebellar artery due to small vessels disease, vertigo, and hypokalemia. PMHX: Medical History Alcohol consumption binge drinking Allergic rhinitis Chronic anxiety Chronic low back pain Chronic obstructive lung disease Degenerative joint disease Depression Erectile dysfunction Hamstring tendinitis Hypertension,borderline Onychomycosis Prediabetes Tobacco dependency Surgical History Colonoscopy - MAC (12/01/17) eye surgery trauma as a child H/O right inguinal hernia repair (Acute) S/P left inguinal hernia repair (Acute) 12/10/18, Dr Shanice Benavidez, [facility] Social History/Home Situation: Patient states that he was born in [place], [place] and grew up in [place]. He came to got in [place] and has stayed for 18 years. He has four kids. He admits to being hoeless recently and that e lives in his car. he was independent with all mobility ADL performance. Equipment Owned/DME: None Subjective: Patient reports a headache concentrated on the L occipitopariental area that he describes as thumping. He states that the pain increased after ambulation activity. Nursing was updated right away. Patient is agreeable to a PT consult. Objective: General Observation: Patient is seen sitting on recliner with telemetry monitoring in place. IV in the R UE. Mental Status: Alert and oriented x 4 Pain: Patient reports moderate headache mostly concentrated on the left occipital area. ROM: Right Upper Extremity: Shoulder Flexion WFL. Shoulder abduction WFL. Elbow flexion WFL. Wrist flexion WFL. Opening and closing of hand normal. Left Upper Extremity: Shoulder Flexion WFL. Shoulder abduction WFL. Elbow flexion WFL. Wrist flexion WFL. Opening and closing of hand normal. Right Lower Extremity: Hip flexion WFL. Hip abduction WFL. Knee flexion WFL. Ankle dorsiflexion WFL. Ankle plantarflexion WFL. Left Lower Extremity: Hip flexion WFL. Hip abduction WFL. Knee flexion WFL. Ankle dorsiflexion WFL. Ankle plantarflexion WFL. Strength: Right Upper Extremity: Shoulder flexors 5/5. Shoulder abductors 5/5. Elbow flexors 5/5. Elbow extensors 5/5. Malted Milk Mixer strong. Left Upper Extremity: Shoulder flexors 5/5. Shoulder abductors 5/5. Elbow flexors 5/5. Elbow extensors 5/5. Malted Milk Mixer strong. Right Lower Extremity: Hip flexors 5/5. Hip abductors 5/5. Knee flexors 5/5. Knee extensors 5/5. Ankle dorsiflexors 5/5. Ankle plantarflexors 5/5. Left Lower Extremity:Hip flexors 5/5. Hip abductors 5/5. Knee flexors 5/5. Knee extensors 5/5. Ankle dorsiflexors 5/5. Ankle plantarflexors 5/5. Sensation: Intact as to pain and pressure on bilateral lower extremities. Bed Mobility/Transfers: Rolling supervision Supine to sit supervision Sit to supine supervision Sit to stand SBA Stand to sit SBA Bed to chair SBA Chair to bed SBA Gait: Patient was able to tolerate 120 feet of level surface ambulation using the front-wheeled walker demonstrating mildly wide-based gait requiring only SBA and minimal verbal cueing for directions only. Balance: Static Sitting: Good Dynamic Sitting: Fair Static Standing: Fair Dynamic Standing: Fair Special Tests: Mobility Limitations Standardized Measure [facility] 6 clicks Basic Mobility Inpatient Short Form: Raw Score: 16 CMS Score: 54% deficit 4-Stage Balance Test: Patient was able to maintain feet together, semi-tandem, and full tandem for 10 seconds but was unable to do so with one-legged stance. This signifies patient being at risk for falls. Informed Consent/Education: Patient instructed in purpose of PT consult and plan of care. Assessment: Patient is a 58-year-old male with diagnosis of thrombotic stroke involving the left cerebellar artery due to small vessel disease, vertigo, and hypokalemia. He has mild difficulty doing rapid alternating movements involving the upper extremities. He does not have weakness to B UE/LE upon examination nor does he have any range of motion deficits. He did demonstrate a mildy wide-based gait and reported that he feels more stable using the front-wheelled walker. He was able to tolerate static standing for about 1 minute before he needed to hold onto his front-wheeled walker. Basing on the findings of this evaluation, patient may benefit from a short-term rehabilitation for balance progression and achieving independence with ambulation performance. Patient presents with clinical signs and symptoms consistent with current/admitting diagnoses that have resulted to mobility limitations, gait instability, generalized weakness, and impairment of motor control as demonstrated by the following impairment level findings: 1. Impaired sitting/standing balance 3. Impaired activity tolerance Impairments are contributing to the following functional limitations: 1. Inability to safely ambulate without assistive device and physical assistance 2. Increase completion time for mobility ADL performance 3. Increased fall risk 4. Inability to negotiate steps alone safely Patient [place] 44530 moderate complexity based on the following: History: Patient is a 58-year-old male patient with past medical history significant for ETOH abuse, polysubstabce abuse, HTN and COPD who presented to the ED on 03/09/2019 with chief presentation of persistent vertigo, nausea, emesis, and gait imbalance. Patient is diagnosed with thrombotic stroke involving the left cerebellar artery due to small vessels disease, vertigo, and hypokalemia. Examination: Demonstrable impairment in strength, balance, and range of motion with underlying impairments and functional limitations as documented above Presentation:Evolving Decision Makin moderate complexity Goals: Goals X1 week 1. Supine-Sit independent 2. Sit-Supine independent 3. Sit-Stand independent 4. Stand-Sit independent 5. Bed-Chair independent 6. Chair-Bed independent 7. Independent gait on level surface without the use of 300 feet without report of pain nor dyspnea 8. Independent with home exercise program 9. Good static and dynamic standing balance/tolerance Plan of Care/Treatment Plan: 1-2x/day, 7 days/week x 1 week. Plan of care has been reviewed with the LEARNING COORDINATOR providing the service under Physical Therapy direction. Initiate Physical Therapy intervention for strengthening, bed mobility, transfers, gait, stairs, balance training, use of assistive device. DISCHARGE RECOMMENDATIONS: Patient states that he has had recent homelessness and may need assistance from care management regarding discharge planning. He may continue to benefit from out-patient physical therapy to facilitate return to independent mobility ADL performance in the community. TREATMENT CODE/TIME: 67112 x 19 minutes beginning at 9:50 AM. Thank you very much for this referral. Mya Celis PT, DPT, CLT [facility]
[2019-03-11] MEDS: Enoxaparin 40 MG/0.4 ML SYR SC (11:36)
--- NOTE | 2019-03-11 11:56 | PGE_ITS ---
Date of Service Date of service: 03/11/19 Time of Service: 11:57 Assessment and Plan Assessment and plan (1) Dizziness: Status: Acute Assessment and plan: Brain MRI showing Foci of restricted diffusion in the left cerebellum suspicious for subacute infarcts. Telemetry showing NSR with rates in the 60s. TSH normal, Hgb A1c 6.0. Dizziness improving, continue PRN meclizine. Discontinue IV fluids. Zofran for nausea. Continue statin therapy and daily aspirin. Monitor on telemetry, echo pending. Encourage cessation of cocaine use. Neurology consulted. (2) Vertigo: Status: Acute Assessment and plan: Related to subacute left cerebellar strokc. Symptoms improving. See above. (3) Upper respiratory infection: Status: Acute Assessment and plan: Rapid flu negative. Chest x-ray negative, afebrile. (4) Chronic obstructive lung disease: Status: None Assessment and plan: Current smoker. No oxygen requirement. Nebulizer treatments as needed. (5) DVT prophylaxis: Status: Acute Assessment and plan: Subcutaneous Lovenox. (6) Discharge planning issues: Status: Acute Assessment and plan: He is a full code. He sleeps in his car or stays at his daughter's house when he is taking care of her children. Disposition to be determined. Care Management is seeing him. This case was discussed with Dr. Marcum who is in agreement. Subjective Subjective Interval history since last seen: David's symptoms are slowly improving. He can open his eyes today. His dizziness is improving. He has been out of bed, a mbulating with PT in the halls. He reports feeling off balance and an unsteady gait. He endorses a headache in the back of his head. He is no longer nauseated. He is eating a regular diet and tolerating it. He has ongoing photophobia which is his baseline. He has not had a bowel movement yet today. He is voiding well. He denies chest pain/pressure, palpitations, shortness of breath, coughing, wheezing, lower extremity edema. Exam Narrative Exam Narrative: General: Middle-aged man, sitting up in the chair. Answers questions appropriately, alert and oriented, pleasant cooperative. Very talkative today. HEENT: EOMI, pupils equal and round. Poor dentition, mucous membranes moist. Neck: Supple, no JVD. Cardiovascular: Heart has regular rate and rhythm, no murmur appreciated. Respiratory: Respirations appear even and unlabored. Scattered inspiratory and expiratory wheezing noted, no rales. GI: Normoactive bowel sounds throughout, abdomen soft, nontender on palpation, no masses appreciated. Extremities: No clubbing, cyanosis or edema. Objective Objective Clinical Data: Abnormal lab results 03/11/19 03/11/19 Range/Units 06:45 06:45 RBC 4.41 L (4.50-6.00) m/cumm Hgb 12.6 L (13.5-17.5) g/dL Hct 38.2 L (40.0-50.0) % Absolute Monocytes 0.83 H (0.11-0.7) k/cumm Calcium 8.2 L (8.5-10.1) mg/dL Vital Signs Temperature 37.1 C 03/11/19 11:50 Temperature Source Tympanic 03/11/19 11:50 Pulse 72 03/11/19 11:50 Pulse Rhythm Regular 03/11/19 09:20 Pulse 63 03/10/19 00:16 Respiratory Rate 18 03/11/19 11:50 Respiratory Effort Non-Labored 03/11/19 09:20 Respiratory Depth Normal 03/11/19 09:20 Respiratory Pattern Normal 03/11/19 09:20 Blood Pressure 156/85 H 03/11/19 11:50 Blood Pressure Mean 100 03/10/19 00:16 Pulse Oximetry 98 03/11/19 11:50 Oxygen Delivery Method Room Air 03/11/19 11:50 Oxygen Flow Rate 0 03/11/19 11:50 Pain Level 0 03/11/19 11:50 Intake & Output 03/10/19 03/10/19 03/11/19 11:59 23:59 11:59 Intake Total 168.333 / 586.666 418.333 / 586.666 890 / 890 Output Total 500 / 2100 1600 / 2100 175 / 175 Balance -331.667 / -1513.334 -1181.667 / -1513.334 715 / 715 Weight 74 kg Intake: IV 138.333 / 556.666 418.333 / 556.666 Oral 890 / 890 Output: Urine 400 / 2000 1600 / 2000 175 / 175 Emesis 100 / 100 Other: Urine Color Yellow Pale Pale Yellow Yellow Urine Appearance Clear Clear Clear Urine Odor Normal None None Emesis Description Undigested Food Voiding Methods Urinal Urinal Urinal Laboratory Results WBC 7.16 k/cumm (4.4-10.8) 03/11/19 06:45 RBC 4.41 m/cumm (4.50-6.00) L 03/11/19 06:45 Hgb 12.6 g/dL (13.5-17.5) L 03/11/19 06:45 Hct 38.2 % (40.0-50.0) L 03/11/19 06:45 MCV 86.6 fL (80-95) 03/11/19 06:45 MCH 28.6 pg (27.0-33.0) 03/11/19 06:45 MCHC 33.0 g/dL (32.0-36.0) 03/11/19 06:45 RDW 13.3 % (11.8-14.1) 03/11/19 06:45 Plt Count 298 x1000/uL (130-400) 03/11/19 06:45 MPV 10.1 fL (8.0-11.0) 03/11/19 06:45 Immature Gran % 0.3 03/11/19 06:45 Neutrophils % 54.2 03/11/19 06:45 Lymphocytes % 31.1 03/11/19 06:45 Monocytes % 11.6 03/11/19 06:45 Eosinophils % 2.2 03/11/19 06:45 Basophils % 0.6 03/11/19 06:45 Absolute Neutrophils 3.88 k/cumm (1.2-6.7) 03/11/19 06:45 Absolute Lymphocytes 2.23 k/cumm (1.2-3.4) 03/11/19 06:45 Absolute Monocytes 0.83 k/cumm (0.11-0.7) H 03/11/19 06:45 Absolute Eosinophils 0.16 k/cumm (0.0-0.7) 03/11/19 06:45 Absolute Basophils 0.04 k/cumm (0.0-0.2) 03/11/19 06:45 PT 9.9 sec (9.3-11.0) 03/09/19 18:25 INR 1.0 (0.9-1.1) 03/09/19 18:25 APTT 22.7 sec (21.0-31.4) 03/09/19 18:25 Sodium 142 mmol/L (136-145) 03/11/19 06:45 Potassium 3.6 mmol/L (3.5-5.1) 03/11/19 06:45 Potassium 3.7 mmol/L (3.5-5.1) 03/11/19 06:45 Chloride 106 mmol/L (98-107) 03/11/19 06:45 Carbon Dioxide 28.2 mmol/L (21.0-32.0) 03/11/19 06:45 Anion Gap 7.8 mmol/L (3-11) 03/11/19 06:45 BUN 9 mg/dL (7-18) 03/11/19 06:45 Creatinine 0.88 mg/dL (0.70-1.30) 03/11/19 06:45 Estimated GFR/1.73 m2 >= 60.00 (mL/min/1.73m2) 03/11/19 06:45 Glucose 100 mg/dL (70-100) 03/11/19 06:45 Hemoglobin A1c 6.0 % (4.5-6.2) 03/11/19 06:45 Lactate 1.3 mmol/L (0.6-1.4) 03/09/19 18:40 Calcium 8.2 mg/dL (8.5-10.1) L 03/11/19 06:45 Magnesium 2.0 mg/dL (1.8-2.4) 03/11/19 06:45 Total Bilirubin 0.3 mg/dL (0.2-1.0) 03/09/19 18:25 AST 18 U/L (15-37) 03/09/19 18:25 ALT 23 U/L (16-63) 03/09/19 18:25 Alkaline Phosphatase 69 U/L (46-116) 03/09/19 18:25 Troponin I < 0.05 ng/mL (0.00-0.06) 03/09/19 22:54 Total Protein 7.7 g/dL (6.4-8.2) 03/09/19 18:25 Albumin 3.7 g/dL (3.4-5.0) 03/09/19 18:25 Triglycerides 90 mg/dL (30-150) 03/11/19 06:45 Total Cholesterol 158 mg/dL (50-200) 03/11/19 06:45 LDL Cholesterol, Calc 100 mg/dL 03/11/19 06:45 HDL Cholesterol 40 mg/dL (40-60) 03/11/19 06:45 TSH 2.49 uIU/mL (0.36-3.74) 03/11/19 06:45 Urine Color Yellow (Yellow) 03/09/19 19:30 Urine Clarity Clear (Clear) 03/09/19 19:30 Urine pH 6.0 (5-8) 03/09/19 19:30 Ur Specific [place] 1.025 (1.005-1.025) 03/09/19 19:30 Urine Protein Negative mg/dL (Negative) 03/09/19 19:30 Urine Ketones Negative mg/dL (Negative) 03/09/19 19:30 Urine Blood Negative (Negative) 03/09/19 19:30 Urine Nitrite Negative (Negative) 03/09/19 19:30 Urine Bilirubin Negative (Negative) 03/09/19 19:30 Urine Urobilinogen 1.0 EU/dL (Up TO 0.2) H 03/09/19 19:30 Ur Leukocyte Esterase Negative (Negative) 03/09/19 19:30 Urine Glucose Negative mg/dL (Negative) 03/09/19 19:30 Salicylates < 2.8 mg/dL (2.8-20.0) L 03/09/19 18:25 Urine Opiates Screen Negative (Negative) 03/09/19 19:30 Urine Methadone Screen Negative (Negative) 03/09/19 19:30 Acetaminophen < 2 ug/mL (10-30) L 03/09/19 18:25 Ur Barbiturates Screen Negative (Negative) 03/09/19 19:30 Ur Tricyclics Screen Negative (Negative) 03/09/19 19:30 Ur Amphetamines Screen Negative (Negative) 03/09/19 19:30 U Benzodiazepines Scrn Negative (Negative) 03/09/19 19:30 Urine Cocaine Screen Positive (Negative) A 03/09/19 19:30 Ur THC Screen Positive (Negative) A 03/09/19 19:30 Ethyl Alcohol < 3.0 mg/dL (<3) 03/09/19 18:25
--- NOTE | 2019-03-11 12:04 | W.PM.PROGNOT ---
Date of Service Date of service: 03/11/19 Time of Service: 12:05 Assessment and Plan Assessment and plan (1) Vertigo: Status: Acute (2) Thrombotic stroke involving cerebellar artery: Status: Acute (3) Cocaine use: Status: Acute Assessment and plan: Mr. Davalos is a 58 year-old, right-handed man admitted with vertigo, nausea, and emesis found to have a subacute left cerebellar stroke in the setting of cocaine use. 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 His work-up was sgnificant for a new diagnosis of pre-diabetes. Otherwise, TTE is still pending. Pending the TTE, will determine if further testing is needed (extended cardiac monitoring). Otherwise, continue aspirin 81mg daily for stroke prevention. Ok to reduced atorvastatin (or statin of choice) to 10mg daily for secondary stroke prevention. Long-term BP goal <140/80 and LDL <70. Continue PT/OT. He should follow-up in the neurology clinic in 4-6 weeks. Please call with any further questions or concerns. Subjective Subjective Interval history since last seen: Much improved over night. Able to ambulate with PT this am. Still some mild dizziness and also complaining of a left occipital headache. No nausea. Tele SR. TTE done and results pending. A1c 6.0 with LDL 100. I reviewed his brain MRI images with him. Exam Narrative Exam Narrative: Physical Exam: Constitutional: Patient of apparent stated age, well nourished, well developed, no acute distress Neuro: MS/Language/Speech: Alert, oriented, clear language (fluency and comprehension), no dysarthria CN: EOMI, visual gaona full, trigeminal sensation intact, no facial asymmetry, hearing intact Motor: Normal bulk and tone. FMM intact, no pronator drift. 5/5 strength in bilateral upper and lower extremities Coordination: Finger to nose performed without dysmetria Gait: deferred Objective Objective Clinical Data: Abnormal lab results 03/11/19 03/11/19 Range/Units 06:45 06:45 RBC 4.41 L (4.50-6.00) m/cumm Hgb 12.6 L (13.5-17.5) g/dL Hct 38.2 L (40.0-50.0) % Absolute Monocytes 0.83 H (0.11-0.7) k/cumm Calcium 8.2 L (8.5-10.1) mg/dL Vital Signs Temperature 37.1 C 03/11/19 11:50 Temperature Source Tympanic 03/11/19 11:50 Pulse 72 03/11/19 11:50 Pulse Rhythm Regular 03/11/19 09:20 Pulse 63 03/10/19 00:16 Respiratory Rate 18 03/11/19 11:50 Respiratory Effort Non-Labored 03/11/19 09:20 Respiratory Depth Normal 03/11/19 09:20 Respiratory Pattern Normal 03/11/19 09:20 Blood Pressure 156/85 H 03/11/19 11:50 Blood Pressure Mean 100 03/10/19 00:16 Pulse Oximetry 98 03/11/19 11:50 Oxygen Delivery Method Room Air 03/11/19 11:50 Oxygen Flow Rate 0 03/11/19 11:50 Pain Level 0 03/11/19 11:50 Intake & Output 03/10/19 03/11/19 03/11/19 23:59 11:59 23:59 Intake Total 418.333 / 586.666 890 / 890 Output Total 1600 / 2100 175 / 175 Balance -1181.667 / -1513.334 715 / 715 Intake: IV 418.333 / 556.666 Oral 890 / 890 Output: Urine 1600 / 1999 175 / 175 Other: Urine Color Pale Pale Yellow Yellow Urine Appearance Clear Clear Urine Odor None None Voiding Methods Urinal Urinal Laboratory Results WBC 7.16 k/cumm (4.4-10.8) 03/11/19 06:45 RBC 4.41 m/cumm (4.50-6.00) L 03/11/19 06:45 Hgb 12.6 g/dL (13.5-17.5) L 03/11/19 06:45 Hct 38.2 % (40.0-50.0) L 03/11/19 06:45 MCV 86.6 fL (80-95) 03/11/19 06:45 MCH 28.6 pg (27.0-33.0) 03/11/19 06:45 MCHC 33.0 g/dL (32.0-36.0) 03/11/19 06:45 RDW 13.3 % (11.8-14.1) 03/11/19 06:45 Plt Count 298 x1000/uL (130-400) 03/11/19 06:45 MPV 10.1 fL (8.0-11.0) 03/11/19 06:45 Immature Gran % 0.3 03/11/19 06:45 Neutrophils % 54.2 03/11/19 06:45 Lymphocytes % 31.1 03/11/19 06:45 Monocytes % 11.6 03/11/19 06:45 Eosinophils % 2.2 03/11/19 06:45 Basophils % 0.6 03/11/19 06:45 Absolute Neutrophils 3.88 k/cumm (1.2-6.7) 03/11/19 06:45 Absolute Lymphocytes 2.23 k/cumm (1.2-3.4) 03/11/19 06:45 Absolute Monocytes 0.83 k/cumm (0.11-0.7) H 03/11/19 06:45 Absolute Eosinophils 0.16 k/cumm (0.0-0.7) 03/11/19 06:45 Absolute Basophils 0.04 k/cumm (0.0-0.2) 03/11/19 06:45 PT 9.9 sec (9.3-11.0) 03/09/19 18:25 INR 1.0 (0.9-1.1) 03/09/19 18:25 APTT 22.7 sec (21.0-31.4) 03/09/19 18:25 Sodium 142 mmol/L (136-145) 03/11/19 06:45 Potassium 3.6 mmol/L (3.5-5.1) 03/11/19 06:45 Potassium 3.7 mmol/L (3.5-5.1) 03/11/19 06:45 Chloride 106 mmol/L (98-107) 03/11/19 06:45 Carbon Dioxide 28.2 mmol/L (21.0-32.0) 03/11/19 06:45 Anion Gap 7.8 mmol/L (3-11) 03/11/19 06:45 BUN 9 mg/dL (7-18) 03/11/19 06:45 Creatinine 0.88 mg/dL (0.70-1.30) 03/11/19 06:45 Estimated GFR/1.73 m2 >= 60.00 (mL/min/1.73m2) 03/11/19 06:45 Glucose 100 mg/dL (70-100) 03/11/19 06:45 Hemoglobin A1c 6.0 % (4.5-6.2) 03/11/19 06:45 Lactate 1.3 mmol/L (0.6-1.4) 03/09/19 18:40 Calcium 8.2 mg/dL (8.5-10.1) L 03/11/19 06:45 Magnesium 2.0 mg/dL (1.8-2.4) 03/11/19 06:45 Total Bilirubin 0.3 mg/dL (0.2-1.0) 03/09/19 18:25 AST 18 U/L (15-37) 03/09/19 18:25 ALT 23 U/L (16-63) 03/09/19 18:25 Alkaline Phosphatase 69 U/L (46-116) 03/09/19 18:25 Troponin I < 0.05 ng/mL (0.00-0.06) 03/09/19 22:54 Total Protein 7.7 g/dL (6.4-8.2) 03/09/19 18:25 Albumin 3.7 g/dL (3.4-5.0) 03/09/19 18:25 Triglycerides 90 mg/dL (30-150) 03/11/19 06:45 Total Cholesterol 158 mg/dL (50-200) 03/11/19 06:45 LDL Cholesterol, Calc 100 mg/dL 03/11/19 06:45 HDL Cholesterol 40 mg/dL (40-60) 03/11/19 06:45 TSH 2.49 uIU/mL (0.36-3.74) 03/11/19 06:45 Urine Color Yellow (Yellow) 03/09/19 19:30 Urine Clarity Clear (Clear) 03/09/19 19:30 Urine pH 6.0 (5-8) 03/09/19 19:30 Ur Specific [place] 1.025 (1.005-1.025) 03/09/19 19:30 Urine Protein Negative mg/dL (Negative) 03/09/19 19:30 Urine Ketones Negative mg/dL (Negative) 03/09/19 19:30 Urine Blood Negative (Negative) 03/09/19 19:30 Urine Nitrite Negative (Negative) 03/09/19 19:30 Urine Bilirubin Negative (Negative) 03/09/19 19:30 Urine Urobilinogen 1.0 EU/dL (Up TO 0.2) H 03/09/19 19:30 Ur Leukocyte Esterase Negative (Negative) 03/09/19 19:30 Urine Glucose Negative mg/dL (Negative) 03/09/19 19:30 Salicylates < 2.8 mg/dL (2.8-20.0) L 03/09/19 18:25 Urine Opiates Screen Negative (Negative) 03/09/19 19:30 Urine Methadone Screen Negative (Negative) 03/09/19 19:30 Acetaminophen < 2 ug/mL (-) L 03/09/19 18:25 Ur Barbiturates Screen Negative (Negative) 03/09/19 19:30 Ur Tricyclics Screen Negative (Negative) 03/09/19 19:30 Ur Amphetamines Screen Negative (Negative) 03/09/19 19:30 U Benzodiazepines Scrn Negative (Negative) 03/09/19 19:30 Urine Cocaine Screen Positive (Negative) A 03/09/19 19:30 Ur THC Screen Positive (Negative) A 03/09/19 19:30 Ethyl Alcohol < 3.0 mg/dL (<3) 03/09/19 18:25
[2019-03-11] MEDS: Pantoprazole 40 MG VIAL IVP (16:25)
--- NOTE | 2019-03-11 18:00 | PT.INTREAT ---
Date of service: 03/11/19 Time of Service: 13:45 PT Notes Inpatient Physical Therapy Treatment Note [facility] Date: 03/11/2019 PRECAUTIONS: Fall. Standard. Activity as tolerated. SUBJECTIVE: Patient denies any headache, nausea, and dizziness throughout the afternoon PT session. OBJECTIVE: Telemetry monitoring in place. IV and catheter off. PAIN: 0/10 BED MOBILITY/TRANSFERS Rolling L/R: I Supine-sit: I Sit-supine: I Sit-stand: I Stand-sit: I Bed-Chair: S Chair-bed: S GAIT Assistive Device: None Weight bearing: FWB Assist: SBA Distance: 60' feet without AD. 120' feet with SC Deviation: stance width normalizing, gait speed increasing THERA ACT: Patient tolerated unsupported static standing for 2 minutes, sidestepping to R and to L x 2, and backing up 8 steps x 2 only requiring SBA with no LOB noted. ASSESSMENT: Patient's symptoms have significantly abated and has allowed for safer mobility ADL performance. He will continue to benefit from outpatient PT services in order to regain prior mobility level for community ambulation. PLAN: Continue per PT POC as initially established. TREATMENT CODE/TIME: 18088 x 27 minutes beginning at 13:45 PM.
--- NOTE | 2019-03-11 18:53 | CMPROGNOTE_ITS ---
- If Service Date Differs Date of service: 03/11/19 Time of Service: 18:53 Care Management Progress Note S/O: Heaven was sitting up in bed when CM met with him. He stated that he had met with Greta from [facility] re: housing. He then went on the express reservations about the housing industry citing the [place] and abuse of personal rights and freedoms. His concerns seemed to center around his inability to live with his daughter who is apparently in public housing. The c onversation was difficult to follow and Heaven was clearly agitated. Heaven was given Greta's number to call as she has been trying to reach him. A: Heaven is a 58 year old man admitted on 03/09/19 with vertigo P:Marloisaias will discharge when ready per MD. CM will provide resources for service connection upon discharge.
[2019-03-11] MEDS: Pravastatin 40 MG TAB 80 MG PO (19:33)
[2019-03-12] VITALS (7 sets, daily range): BP systolic 132–155; BP diastolic 88–96; PULSE 55–89; RESP 16–18; TEMP 36–37.1; O2SAT 97–100
[2019-03-12 07:44] LABS: Anion Gap 8.1 mmol/L (3-11); BUN 14 mg/dL (7-18); CO2 25.9 mmol/L (21.0-32.0); CREATININE 0.91 mg/dL (0.70-1.30); Calcium 8.5 mg/dL (8.5-10.1); Chloride 104 mmol/L (98-107); Glucose 96 mg/dL (70-100); Magnesium 1.7 mg/dL (1.8-2.4); Potassium 3.9 mmol/L (3.5-5.1); Sodium 138 mmol/L (136-145)
[2019-03-12] MEDS: Aspirin 81 MG CHEW PO (09:30)
[2019-03-12] MEDS: Docusate Sodium 100 MG CAP PO (09:30)
[2019-03-12] MEDS: Potassium Chloride 20 MEQ TABCR 40 MEQ PO (09:30)
[2019-03-12] MEDS: Enoxaparin 40 MG/0.4 ML SYR SC (11:36)
[2019-03-12] MEDS: MAGNESIUM SULFATE 1 GM/100 ML BAG IVPB (11:36)
--- NOTE | 2019-03-12 12:18 | PT.INTREAT ---
Date of service: 03/12/19 Time of Service: 10:08 PT Notes Inpatient Physical Therapy Treatment Note [facility] Date: 03/12/2019 PRECAUTIONS: Fall. Standard. Activity as tolerated. SUBJECTIVE: Patient continues to deny any headache, nausea, and dizziness throughout the afternoon PT session. OBJECTIVE: Telemetry monitoring will be removed this morning per MD order. PAIN: 0/10 BED MOBILITY/TRANSFERS Rolling L/R: I Supine-sit: I Sit-supine: I Sit-stand: I Stand-sit: I Bed-Chair: I Chair-bed: I GAIT Assistive Device: None Weight bearing: FWB Assist: Supervision Distance: 150' Deviation: stance width normalizing, gait speed increasing THERA ACT: Patient tolerated a progression of dynamic balance exercises on med surg hallway with focus on sidestepping, tandem walking, and toe walking with LOB noted x 2 with the tandem stance and x 2 with tandem walking. Patient was able to maintain one-legged R/L stance x 10 seconds without LOB. ASSESSMENT: Patient's symptoms continue to wane and has allowed for safer mobility ADL performance. He will continue to benefit from outpatient PT services in order to regain prior mobility level for community ambulation. PLAN: Continue per PT POC as initially established. TREATMENT CODE/TIME: 65152 x 26 minutes beginning at 10:08 PM.
--- NOTE | 2019-03-12 14:25 | W.PM.DS.N ---
Date of service: 03/12/19 Time of Service: 14:25 DS: Diagnosis Discharge Diagnosis (1) Vertigo: Status: Acute (2) Thrombotic stroke involving cerebellar artery: Status: Acute (3) Cocaine use: Status: Acute Discharge Plan Disposition Patient Disposition: HOME Condition: Improving Discharge Details Chief Complaint: AMS/LOC Clinical Impression: Vertigo, Cocaine use, Marijuana use, continuous Reason For Visit: VERTIGO Admit Date/Time: 03/09/19 23:52 Admit Provider: Yasmani Munoz Attending Provider: Yasmani Munoz Primary Care Provider: Jin Payan ED [facility] Course: Ary Davalos is a very pleasant 58 year old man with a past medical history significant for COPD and substance use who presented to the emergency department on 03/10/2019 with reports of weakness and vertigo in the setting of an upper respiratory infection. In the ER he had a CT head which was negative for an acute process. He received meclizine and Valium but was unable to ambulate and was admitted to the [facility] floor for further observation and management. The following day, he went on to have an MRI/MRA brain and MRA neck which showed Foci of restricted diffusion in the left cerebellum suspicious for subacute infarcts. He was placed on telemetry and neurology was consulted. Neurology suspected that the etiology of his stroke was small vessel disease from cocaine use. He went on to have a TTE, lipid panel, A1c, TSH testing. On telemetry, he was sinus rhythm to sinus bradycardia with rates in the 50s and 60s. His echocardiogram LVEF of 55-60%, trace mitral regurgitation, RVSP 20-25%. His A1c was 6.0, TSH normal at 2.49. He was started on aspirin and statin therapy. His symptoms improved over the following days. He continued to have mild dizziness and slight gait abnormalities. He will have ongoing physical therapy at the time of discharge. He will be discharged home with a holter monitor for further monitoring. He will follow up in the neurology clinic. Mr. Davalos is currently homeless and lives in his car. He is connected with [facility] and they are working with him to obtain housing. It is not recommended that he return to his car until he is cleared to safely drive. The plan is for his daughter to pick him up and he will stay at her home over the weekend. He will go to [employer] services next week for assistance with housing. Given his new stroke and dizziness, he is considered a vulnerable adult, he is not safe to drive or live in his car, therefore, he needs housing. He is scheduled to begin outpatient PT after discharge. He will follow up with his PCP as scheduled. He will follow up with Dr. Saini as scheduled. Home Meds and New Rx's Prescriptions: New acetaminophen [Mapap Extra Strength] 500 mg Tablet 1,000 mg PO Q6H PRN PRNQty: 0 RF: 0 meclizine 25 mg Tablet 25 mg PO TID PRN PRNQty: 30 RF: 0 docusate sodium [Colace] 100 mg Capsule 100 mg PO BID Qty: 30 RF: 0 aspirin 81 mg Tablet,Chewable 81 mg PO DAILY Qty: 30 RF: 0 atorvastatin 40 mg tablet 40 mg PO QHS Qty: 30 RF: 0 Continued sildenafil [Viagra] 50 MG tablet 50 mg PO PRN RF: 0 cetirizine 10 MG tablet,chewable 10 mg PO DAILY RF: 0 albuterol sulfate 90 mcg/actuation Hfa Aerosol Inhaler 2 puff INHALATION QID RF: 0 lisinopril-hydrochlorothiazide 10-12.5 mg Tablet 1 tab PO DAILY RF: 0 Discharge Instructions Instructions: Ischemic Stroke (DC), Effects of a Stroke (DC) Additional Instructions: Please refrain from using illicit substances including cocaine. Follow up with Physical therapy to continue to work on balance. Follow up with your PCP as scheduled. Follow up with Neurology as scheduled. Take care! Stand Alone Forms: Nursing Discharge Form Referrals: [facility] [Provider Group] - 03/19/19 2:00 pm Jin Payan [Primary Care Provider] - 03/17/19 8:30 am Ingris Saini MD [ [facility] STAFF PHYSICIAN] - 04/20/19 12:15 pm Activity:: Activity as Tolerated Equipment/Supplies:: No Equipment Needed Diet:: As Tolerated Discharge Orders Discharge Orders: Discharge Order (Routine); Ordered 03/12/19 Ordered By: Camille Levine DS: Summary Status at Discharge Functional status at discharge: independent ambulation (slightly unsteady gait) Overall status at discharge: patient is progressing back to baseline Mental Status: mental status grossly normal Speech and Movement: speech and movement normal Mood: congruent mood Affect: normal affect Exam Narrative Exam Narrative: General: Middle-aged man, sitting up in the chair. Answers questions appropriately, alert and oriented, pleasant cooperative. Speech is clear and articulate. HEENT: EOMI, pupils equal and round. Poor dentition, mucous membranes moist. Neck: Supple, no JVD. Cardiovascular: Heart has regular rate and rhythm, no murmur appreciated. Respiratory: Respirations appear even and unlabored. Scattered inspiratory and expiratory wheezing noted, no rales. GI: Normoactive bowel sounds throughout, abdomen soft, nontender on palpation, no masses appreciated. Extremities: No clubbing, cyanosis or edema. Neurological: no facial asymmetry, no pronator drift, 5 out of 5 strength in bilateral upper and lower extremities. Psych Mental Status: mental status grossly normal Speech and Movement: speech and movement normal Mood: congruent mood Affect: normal affect DS: Data Vitals/I&O Vitals and I&O: Vital Signs Temperature 36 C L 03/12/19 11:55 Temperature Source Tympanic 03/12/19 11:55 Pulse 58 L 03/12/19 11:55 Pulse Rhythm Regular 03/12/19 03:45 Pulse 63 03/10/19 00:16 Respiratory Rate 18 03/12/19 11:55 Respiratory Effort Non-Labored 03/12/19 03:45 Respiratory Depth Normal 03/12/19 03:45 Respiratory Pattern Normal 03/12/19 03:45 Blood Pressure 132/88 03/12/19 11:55 Blood Pressure Mean 100 03/10/19 00:16 Pulse Oximetry 97 03/12/19 11:55 Oxygen Delivery Method Room Air 03/12/19 11:55 Oxygen Flow Rate 0 03/12/19 11:55 Pain Level 0 03/12/19 11:55 Intake & Output 03/11/19 03/12/19 03/12/19 23:59 11:59 23:59 Intake Total 840 / 1730 200 / 200 Output Total 600 / 775 730 / 730 Balance 240 / 955 -530 / -530 Intake: Oral 840 / 1730 200 / 200 Output: Urine 600 / 775 730 / 730 Other: Urine Color Yellow Pale Urine Appearance Clear Clear Urine Odor Normal Normal Stool Size Moderate Moderate Stool Characteristics Soft Soft Formed Voiding Methods Urinal Urinal Data Completed and Pending Completed studies during hospitalization [Text1]: 03/09/2019: EXAM: XR CHEST 2V PA LATERAL INDICATION: ALTERED MENTAL STATUS, bradycardic, r/o acute disease. COMPARISON: XR shoulder LT complete 2+V from 03/31/2018 TECHNIQUE: 2D digital imaging was performed. FINDINGS: The heart size and pulmonary vasculature are within normal limits. The lungs are clear. No effusions or pneumothoraces are present. Degenerative changes are seen in the spine. IMPRESSION: No acute pulmonary process. EXAM: CT HEAD WO CLINICAL HISTORY: ams, slurred speech, r/o acute cva TECHNIQUE: The exam was performed according to the usual protocol without contrast. COMPARISON: No exams were available for comparison FINDINGS: There is a normal mosqueda-white matter differentiation. No acute intracranial hemorrhage, midline shift or mass effect is present. The ventricles are intact. The basilar cisterns are patent. There is a 1.8 x 1.1 cm soft tissue mass in the left nasal passageway. This may represent a nasal polyp. Other nasal masses cannot be excluded. The visualized paranasal sinuses are clear as are the mastoid air cells. The calvarium is intact. IMPRESSION: No acute intracranial process. 1.8 x 1.1 cm soft tissue mass in the left nasal passageway. This may represent a nasal polyp. Follow up as clinically appropriate. 03/10/19: EXAM: MR BRAIN WO CLINICAL HISTORY: vertigo,gait instability,cocaine use,r/o cva. TECHNIQUE: Multiplanar multisequence MRI was performed. COMPARISON: MR ANGIO BRAIN WO from 03/10/2019 FINDINGS: There are several foci of restricted diffusion in the left cerebellum consistent with subacute infarcts. The ventricles and sulci are consistent with the patient's age. There are a few foci of hyperintense signal seen in the white matter on the T2 and FLAIR images. This may represent small-vessel ischemic disease are other demyelinating process. The ventricles are intact. The basilar cisterns are patent. There is no acute midline shift or mass effect. The pituitary gland appears grossly unremarkable. There is a 2 x 1.3 cm mass in the left nasal passageway. It is isointense to muscle on the T1 weighted images and hyperintense on the T2 weighted images. No intracranial hemorrhage is present. IMPRESSION: 1. Foci of restricted diffusion in the left cerebellum suspicious for subacute infarcts. 2. Soft tissue mass in the left nasal passageway, which could represent a nasal polyp/mass. 3. A few hyperintense foci in the white matter. This may reflect early small vessel ischemic disease are other demyelinating process. EXAM: MR ANGIO BRAIN WO CLINICAL HISTORY: vertigo,gait instability,cocaine use,r/o cva. TECHNIQUE: Multiplanar multisequence MRI was performed. COMPARISON: No exams were available for comparison FINDINGS: The internal carotid arteries are unremarkable. No occlusion, aneurysm or significant stenosis is present. The anterior cerebral arteries are unremarkable. No occlusion, aneurysm or significant stenosis is present. The middle cerebral arteries are unremarkable. No aneurysm, occlusion, or significant stenosis is present. The right posterior cerebral artery arises from the posterior communicating artery. This is a normal variant. The posterior cerebral arteries are otherwise unremarkable. No occlusion, aneurysm or significant stenosis is present. The basilar artery is unremarkable. No occlusion, aneurysm or significant stenosis is present. IMPRESSION: No acute arterial pathology. EXAM: MR ANGIO NECK WO CLINICAL HISTORY: vertigo,gait instability,cocaine use,r/o cva. TECHNIQUE: Multiplanar multisequence MRI was performed. COMPARISON: No exams were available for comparison FINDINGS: There is patient motion artifact. The common carotid arteries are unremarkable. No evidence of occlusion or significant stenosis is present. The external carotid arteries are unremarkable. No evidence of significant stenosis or occlusion is present. The internal carotid arteries are unremarkable. No evidence of occlusion or significant stenosis is present. The vertebral arteries are unremarkable. No evidence of significant stenosis or occlusion is present. IMPRESSION: 1. Patient motion artifact. 2. No acute arterial pathology. 03/11/19: Conclusion Left Ventricle : The left ventricle is normal size. The left ventricular ejection fraction is within the normal range. There is normal LV segmental wall motion. LVEF is 55-60%. Right Ventricle : The right ventricle is normal size. The right ventricular systolic function is normal. Atria : The left atrium size is normal. The right atrium size is normal. Aortic Valve : The aortic valve is normal in structure. Aortic valve is trileaflet. There is no aortic valvular stenosis. No aortic regurgitation is present. Mitral Valve : The mitral valve is normal in structure. No evidence of mitral valve stenosis. Trace mitral regurgitation. Tricuspid Valve : Tricuspid valve is grossly normal in structure and function. Mild tricuspid regurgitation. Great Vessels : IVC is normal in size and collapses >50% with inspiration. RVSP=20-25 mmHg There is no prior study available for comparison. There is no echocardiographic evidence of cardiac source of emboli. EXAM: Comprehensive 2D, Doppler, and color-flow Echocardiogram Labs on day of discharge: Labs from last 24 hours 03/12/19 07:10 Sodium 138 Potassium 3.9 Chloride 104 Carbon Dioxide 25.9 Anion Gap 8.1 BUN 14 Creatinine 0.91 Estimated GFR/1.73 m2 >= 60.00 Glucose 96 Calcium 8.5 Magnesium 1.7 L PFSH Medical History Alcohol consumption binge drinking Allergic rhinitis Chronic anxiety Chronic low back pain Chronic obstructive lung disease Degenerative joint disease Depression Erectile dysfunction Hamstring tendinitis hypertension,borderline Onychomycosis Prediabetes Tobacco dependency Surgical History Colonoscopy - MAC (12/01/17) eye surgery trauma as a child H/O right inguinal hernia repair (Acute) S/P left inguinal hernia repair (Acute) 12/10/18, Dr Shanice Benavidez, [facility] Family History Mother , cancer Personal history of malignant neoplasm Father Stroke Hypertension Social History Smoking/Tobacco Use Status: Current every day Alcohol Intake: current Alcohol Intake frequency: 0-2 drinks per day Alcohol type: beer Drug use: Daily Substance use type: marijuana Additional Social history: homeless. Pt will be staying temporarily with Daughter, Melissa, following procedure.
--- NOTE | 2019-03-12 15:26 | INDS_ITS ---
Date of service: 03/12/19 Time of Service: 14:57 PT Notes Inpatient Physical Therapy Discharge Summary Dates: 03/12/2019 Dates of Service: 03/11/2019 and 03/12/2019 This is a clinical summary of care provided on the duration of dates listed above. No charge was made in the completion of this documentation. Referring Doctor: Yasmani Munoz MD PT Orders: PT CONSULT: Limited ability Precautions: Fall. Standard. Activity as tolerated. Patient Profile/Admitting Diagnosis: Patient is a 58-year-old male patient with past medical history significant for ETOH abuse, polysubstabce abuse, HTN and COPD who presented to the ED on 03/09/2019 with chief presentation of persistent vertigo, nausea, emesis, and gait imbalance. Patient is diagnosed with thrombotic stroke involving the left cerebellar artery due to small vessels disease, vertigo, and hypokalemia. PMHX: Medical History Alcohol consumption binge drinking Allergic rhinitis Chronic anxiety Chronic low back pain Chronic obstructive lung disease Degenerative joint disease Depression Erectile dysfunction Hamstring tendinitis Hypertension,borderline Onychomycosis Prediabetes Tobacco dependency Surgical History Colonoscopy - MAC (12/01/17) eye surgery trauma as a child H/O right inguinal hernia repair (Acute) S/P left inguinal hernia repair (Acute) 12/10/18, Dr Shanice Benavidez, [facility] Social History/Home Situation: Patient states that he was born in [place], [place] and grew up in [place]. He came to got in [place] and has stayed for 18 years. He has four kids. He admits to being hoeless recently and that e lives in his car. he was independent with all mobility ADL performance. Equipment Owned/DME: None Subjective: NT Objective: General Observation: NT Mental Status: Alert and oriented x 4 Pain: 0/10 ROM: Right Upper Extremity: Shoulder Flexion WFL. Shoulder abduction WFL. Elbow flexion WFL. Wrist flexion WFL. Opening and closing of hand normal. Left Upper Extremity: Shoulder Flexion WFL. Shoulder abduction WFL. Elbow flexion WFL. Wrist flexion WFL. Opening and closing of hand normal. Right Lower Extremity: Hip flexion WFL. Hip abduction WFL. Knee flexion WFL. Ankle dorsiflexion WFL. Ankle plantarflexion WFL. Left Lower Extremity: Hip flexion WFL. Hip abduction WFL. Knee flexion WFL. Ankle dorsiflexion WFL. Ankle plantarflexion WFL. Strength: Right Upper Extremity: Shoulder flexors 5/5. Shoulder abductors 5/5. Elbow flexors 5/5. Elbow extensors 5/5. Yarn Mercerizer Operator strong. Left Upper Extremity: Shoulder flexors 5/5. Shoulder abductors 5/5. Elbow flexors 5/5. Elbow extensors 5/5. Yarn Mercerizer Operator strong. Right Lower Extremity: Hip flexors 5/5. Hip abductors 5/5. Knee flexors 5/5. Knee extensors 5/5. Ankle dorsiflexors 5/5. Ankle plantarflexors 5/5. Left Lower Extremity:Hip flexors 5/5. Hip abductors 5/5. Knee flexors 5/5. Knee extensors 5/5. Ankle dorsiflexors 5/5. Ankle plantarflexors 5/5. Sensation: Intact as to pain and pressure on bilateral lower extremities. Bed Mobility/Transfers: Rolling independent Supine to sit independent Sit to supine independent Sit to stand independent Stand to sit independent Bed to chair independent Chair to bed independent Gait: Patient was able to tolerate 150 feet of level surface ambulation without an AD requring only supervision assist without no LOB seen with no remarkable gait abnormality seen. . Balance: Static Sitting: Normal Dynamic Sitting: Normal Static Standing: Normal Dynamic Standing: Good Special Tests: Mobility Limitations Standardized Measure [facility] 6 clicks Basic Mobility Inpatient Short Form: Raw Score: 16 CMS Score: 54% deficit 4-Stage Balance Test: Patient is now able to maintain 10 seconds with feet together, semi-tandem, full tandem, and one-legged standing with onlt stadan by assist signifying low fall risk. 30-second chair rise score of 15 indicates increased B LE strength and low risk for falls. Assessment: Patient is a 58-year-old male with diagnosis of thrombotic stroke i nvolving the left cerebellar artery due to small vessel disease, vertigo, and hypokalemia. Patient however, has not complained of nausea, dizziness, and headache since yesterday afternoon. Rapid alternating movements of B UE/LE are now easier to perform. Patient however was unable to count backwards from 100 by 7 while performing sidestepping. Patient has demonstrated significant functional mobility gains during this episode of care with [facility] CMS score of 11% deficit (from a start of care CMS score of 54% deficit). Goals: Goals X1 week 1. Supine-Sit independent MET 2. Sit-Supine independent MET 3. Sit-Stand independent MET 4. Stand-Sit independent MET 5. Bed-Chair independent MET 6. Chair-Bed independent MET 7. Independent gait on level surface without the use of 300 feet without report of pain nor dyspnea NOT MET 8. Independent with home exercise program MET 9. Good static and dynamic standing balance/tolerance MET DISCHARGE RECOMMENDATIONS: Patient states that he has had recent homelessness and may need assistance from care management regarding discharge planning. He may continue to benefit from out-patient physical therapy to facilitate return to independent mobility ADL performance and remain in the community. Patient may benefit from PT services for a one time assessment of home safety and stair training (as applicable) once a discharge destination is designated. TREATMENT CODE/TIME: MN. Thank you very much for this referral. Mya Celis PT, DPT, CLT [facility]
--- NOTE | 2019-03-12 18:30 | PDOC.CMDIS ---
- If Service Date Differs Date of service: 03/12/19 Time of Service: 18:30 LACE Index Scoring Tool - Questions: Length of Stay (in days): 3 Acuity (Admit via E.D.?): Yes Comorbidities: Chronic Pulmonary Disease E.D. Visits: 4 - Answers: Total Score: 12 Risk of Readmission: High Risk Care Management Discharge Reason for Hospitalization: Vertigo, Bradycardia Discharge Plan: Heaven will be discharged home to his daughter's home with no new services. He will follow up with [facility] re housing. He will also follow up with his PCP and discharge plan of care. He will transport via private vehicle with his daughter. Patient/Family Education Needs: Discharge plan, limitations, follow up plan and Ask Me Three.
== END 2019-03-12 18:42 | disposition home or self-care (01) ==
LOC: ER 03-10 00:11 → MS 03-10 00:25
PROVIDERS: Nurse Practitioner; Physician Assistant; Admitting Provider General Practice; Emergency Provider Emergency Medicine; PCP Family Medicine; Visit Provider Internal Medicine
DX: I63.342 Cerebral infarction due to thrombosis of left cerebellar artery (principal); E87.6 Hypokalemia; F14.10 Cocaine abuse, uncomplicated; I67.9 Cerebrovascular disease, unspecified; J06.9 Acute upper respiratory infection, unspecified; R42 Dizziness and giddiness; R26.81 Unsteadiness on feet; R11.2 Nausea with vomiting, unspecified; J44.9 Chronic obstructive pulmonary disease, unspecified; R73.03 Prediabetes; F17.210 Nicotine dependence, cigarettes, uncomplicated; Z59.0 Homelessness; F12.90 Cannabis use, unspecified, uncomplicated; I10 Essential (primary) hypertension; I07.1 Rheumatic tricuspid insufficiency
CPT/HCPCS: 36415; 70544; 70547; 80048; 80053; 80061; 80307; 87449; 93005; 93306; 97162; 97530; 99215; 99222; 99226; 99232; 99239; 99255; 99285; J1650; 70450; 70551; 71046; 80320; 80329; 81003; 83036; 83605; 83735; 84132; 84443; 84484; 85025; 85610; 85730; 93010; 99217; 99218; 99225; G0378; J3475

== ENCOUNTER → 2019-03-10 14:09 | Outpatient (BNVA) | payer MEDICARE, SELFPAY | PROVIDERS: PCP Family Medicine; Referring Provider Family Medicine; Visit Provider Psychiatry & Neurology Neurology | DX: R69 Illness, unspecified (principal) ==

== ENCOUNTER 2019-04-10 10:23 | Emergency (ER) | payer MEDICARE, SELFPAY ==
[2019-04-10 10:32] VITALS: BP 161/92; PULSE 62; RESP 16; TEMP 36.7; O2SAT 98
--- NOTE | 2019-04-10 10:46 | ED.GENADUL_ITS ---
Discharge Plan Disposition Patient Disposition: HOME Condition: Improving Discharge Details Chief Complaint: Dizzy/Sync Clinical Impression: Dizziness, Dehydration Primary Care Provider: Jin Payan ED Provider: Roxane Gross Home Meds and New Rx's Prescriptions: Continued sildenafil [Viagra] 50 MG tablet 50 mg PO PRN RF: 0 cetirizine 10 MG tablet,chewable 10 mg PO DAILY RF: 0 albuterol sulfate 90 mcg/actuation Hfa Aerosol Inhaler 2 puff INHALATION QID RF: 0 lisinopril-hydrochlorothiazide 10-12.5 mg Tablet 1 tab PO DAILY RF: 0 acetaminophen [Mapap Extra Strength] 500 mg Tablet 1,000 mg PO Q6H PRN PRNQty: 0 RF: 0 meclizine 25 mg Tablet 25 mg PO TID PRN PRNQty: 30 RF: 0 docusate sodium [Colace] 100 mg Capsule 100 mg PO BID Qty: 30 RF: 0 aspirin 81 mg Tablet,Chewable 81 mg PO DAILY Qty: 30 RF: 0 atorvastatin 40 mg tablet 40 mg PO QHS Qty: 30 RF: 0 Discharge Instructions Instructions: Dehydration (ED), Dizziness (ED) Additional Instructions: Drink plenty of fluids and get plenty of rest. Follow-up with your scheduled appointment with Dr. Saini on Friday. Call the ear nose and throat doctor to schedule a follow-up appointment for further evaluation of your chronic nasal congestion and nasal polyp found on your recent MRI/CT scan last month. Return to the emergency department if you develop any significant worsening or new concerning symptoms of fever, worsening dizziness, headache or any other concerns. Referrals: Lalit Aponte MD [ [facility] STAFF PHYSICIAN] - Discharge Data Discharge Date/Time-TO BE ENTERED AT DEPARTURE: 04/10/19 13:51 Discharge Physician: Roxane Gross Medical Decision Making 3510 -- 58 year-old man with a PMHx of polysubstance and ETOH abuse, Hypertension, COPD, and recent homelessness presents for dizziness and feeling pale since this morning after leaving prison. He states he drank several beers last night and only has had coffee this morning. Smokes marijuana but otherwise denies any other recent drug use. Patient states he got out of his car to visit a friend's house when he felt lightheaded upon standing. He states since then his symptoms have improved. He denies headache, blurry vision, neck pain, chest pain, shortness of breath, abdominal pain, nausea, vomiting, diarrhea or urinary symptoms. Pt was admitted here last month for vertigo, emesis and gait imbalance and after admission was found on MRI brain to have a foci of restricted diffusion in the left cerebellum suspicious for subacute infarcts. He had a TTE which noted The left ventricular ejection fraction is within the normal range. There is normal LV segmental wall motion. LVEF is 55-60%. He was seen by neurology Dr. 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 Patient states since his admission and diagnosis of stroke last month he has had some gait imbalance and slower pace of walking but otherwise no focal deficits. BP mildly hypertensive. Patient is taking all of his meds. Patient sounds nasally congested. He has had clear nasal discharge without fever. CT from last month noted nasal polyp which may be contributing or he could have a viral sinusitis. Remainder of ENT exam within normal limits. Lungs clear. No acute focal deficits. Differential diagnosis includes dehydration, viral illness, electrolyte abno rmality, arrhythmia, ACS, CVA, pneumonia, UTI. Patient appears well and denies any history of chest pain so doubt ACS. No focal deficits on exam and denies headache so doubt acute stroke. EKG notes a rate of 58, sinus, left anterior fascicular block, no acute ST-T wave ischemic changes. No acute change from previous EKG. 1320 -- Labs and imaging reviewed. Normal white blood cell count. Normal electrolytes and coagulation studies. Urinalysis negative for infection. CT head negative for acute findings. Chest x-ray negative for acute findings but does note subtle nodular opacities which likely are nipple shadows. Patient denies any fever, chest pain, cough or shortness of breath so doubt any acute lung abnormality. Patient was able to eat food and ambulate and admitted to resolution of his symptoms. Patient is requesting to go home. Pt is advised to drink plenty of fluids, get plenty of rest and follow-up with his scheduled appointment with Dr. Saini on Friday. He is advised to return here with any concerns. He was also given ENT follow-up information for his chronic nasal congestion. He denies any fever, green nasal discharge or headache so doubt acute bacterial sinusitis at this time and will hold on antibiotics. Medical Records Medical records reviewed: Yes I reviewed the patient's medical records. Imaging Data Radiologic Study: Radiologist's impression: CT Head Without Contrast Exam date and time: 04/10/2019 10:50 AM Age: 59 years old Clinical history: Device placement; Other: Dizzy, h/o recent subacute L cerebellum infarct TECHNIQUE: Imaging protocol: Computed tomography of the head without contrast. Radiation optimization: All CT scans at this facility use at least one of these dose optimization techniques: automated exposure control; mA and/or kV adjustment per patient size (includes targeted exams where dose is matched to clinical indication); or iterative reconstruction. COMPARISON: CT HEAD WO 03/09/2019 6:39 PM FINDINGS: Brain: Evolving infarction of the left cerebellum as evidenced by small hypodensities. No hyperdensity to suggest hemorrhage. No abnormal extra-axial fluid collection. No mass or midline shift. No herniation. Age-appropriate brain volume. Unchanged few scattered hypodense foci within the white matter likely related to small vessel microangiopathy. Ventricles: Normal. No ventriculomegaly. Bones/joints: Unremarkable. No acute fracture. Sinuses: Scattered mucosal thickening. No fluid levels. Polyp/mass in the posterior left choana is again seen. Mastoid air cells: Visualized mastoid air cells are well aerated. Soft tissues: Unremarkable. Vasculature: Atherosclerotic calcifications of the intracranial arteries. IMPRESSION: 1. No acute intracranial abnormality. 2. Known left cerebellar infarct. No hemorrhage. 3. Known left choana polyp/mass. XR Chest, 2 Views Exam date and time: 04/10/2019 11:27 AM Age: 59 years old Clinical history: Other: Dizzy, R/O acute disease TECHNIQUE: Imaging protocol: XR of the chest Views: 2 views. COMPARISON: CR XR CHEST 2V PA LATERAL 03/09/2019 6:49 PM FINDINGS: Lungs: No consolidation. Bilateral subtle nodular opacities which have the appearance of nipple shadows. Pleural space: Unremarkable. No pleural effusion. No pneumothorax. Heart/Mediastinum: Unremarkable. No cardiomegaly. Bones/joints: Unchanged. IMPRESSION: 1. No acute findings. 2. Bilateral subtle nodular opacities which have the appearance of nipple shadows. Consider repeat radiographs with nipple markers if of concern. Lab Data Lab results reviewed: Yes I reviewed the patient's lab results. Labs: Laboratory Tests Range/Units 04/10/19 04/10/19 04/10/19 10:45 10:45 10:50 WBC (4.4-10.8) k/cumm RBC (4.50-6.00) m/cumm Hgb (13.5-17.5) g/dL Hct (40.0-50.0) % MCV (80-95) fL MCH (27.0-33.0) pg MCHC (32.0-36.0) g/dL RDW (11.8-14.1) % Plt Count (130-400) x1000/uL MPV (8.0-11.0) fL Immature Gran % Neutrophils % Lymphocytes % Monocytes % Eosinophils % Basophils % Absolute Neutrophils (1.2-6.7) k/cumm Absolute Lymphocytes (1.2-3.4) k/cumm Absolute Monocytes (0.11-0.7) k/cumm Absolute Eosinophils (0.0-0.7) k/cumm Absolute Basophils (0.0-0.2) k/cumm PT (9.3-11.0) sec INR (0.9-1.1) APTT (21.0-31.4) sec Sodium (136-145) mmol/L 139 Potassium (3.5-5.1) mmol/L 3.5 Chloride (98-107) mmol/L 101 Carbon Dioxide (21.0-32.0) mmol/L 29.6 Anion Gap (3-11) mmol/L 8.4 BUN (7-18) mg/dL 13 Creatinine (0.70-1.30) mg/dL 0.96 Estimated GFR/1.73 m2 (mL/min/1.73m2) >= 60.00 Glucose (74-106) mg/dL 91 Calcium (8.5-10.1) mg/dL 8.7 Magnesium (1.8-2.4) mg/dL 2.1 Total Bilirubin (0.2-1.0) mg/dL 0.5 AST (15-37) U/L 21 ALT (16-63) U/L 31 Alkaline Phosphatase (46-116) U/L 74 Troponin I (<0.06) ng/Ml < 0.05 Total Protein (6.4-8.2) g/dL 7.6 Albumin (3.4-5.0) g/dL 3.6 Urine Color (Yellow) Yellow Urine Clarity (Clear) Clear Urine pH (5-8) 7.0 Ur Specific [place]owe (1.005-1.025) 1.015 Urine Protein (Negative) mg/dL Negative Urine Ketones (Negative) mg/dL Negative Urine Blood (Negative) Trace-intact H Urine Nitrite (Negative) Negative Urine Bilirubin (Negative) Negative Urine Urobilinogen (Up TO 0.2) EU/dL 0.2 Ur Leukocyte Esterase (Negative) Negative Urine RBC (0-2) HPF 3-5 H Urine WBC (0-5) HPF 0-2 Ur Epithelial Cells (Negative) HPF Negative Urine Crystals (Negative) HPF Negative Urine Bacteria (Negative) HPF Negative Urine Casts (Negative) LPF Negative Urine Mucus (Negative) Negative Ur Culture Indicated? No Urine Glucose (Negative) mg/dL Negative Urine Opiates Screen (Negative) Negative Urine Methadone Screen (Negative) Negative Ur Barbiturates Screen (Negative) Negative Ur Tricyclics Screen (Negative) Negative Ur Amphetamines Screen (Negative) Negative U Benzodiazepines Scrn (Negative) Negative Urine Cocaine Screen (Negative) Negative Ur THC Screen (Negative) Positive A Range/Units 04/10/19 04/10/19 10:50 10:50 WBC (4.4-10.8) k/cumm 7.01 RBC (4.50-6.00) m/cumm 4.49 L Hgb (13.5-17.5) g/dL 12.8 L Hct (40.0-50.0) % 38.8 L MCV (80-95) fL 86.4 MCH (27.0-33.0) pg 28.5 MCHC (32.0-36.0) g/dL 33.0 RDW (11.8-14.1) % 13.8 Plt Count (130-400) x1000/uL 284 MPV (8.0-11.0) fL 9.6 Immature Gran % 0.3 Neutrophils % 50.6 Lymphocytes % 31.1 Monocytes % 10.6 Eosinophils % 6.3 Basophils % 1.1 Absolute Neutrophils (1.2-6.7) k/cumm 3.55 Absolute Lymphocytes (1.2-3.4) k/cumm 2.18 Absolute Monocytes (0.11-0.7) k/cumm 0.74 H Absolute Eosinophils (0.0-0.7) k/cumm 0.44 Absolute Basophils (0.0-0.2) k/cumm 0.08 PT (9.3-11.0) sec 10.0 INR (0.9-1.1) 1.0 APTT (21.0-31.4) sec 25.8 Sodium (136-145) mmol/L Potassium (3.5-5.1) mmol/L Chloride (98-107) mmol/L Carbon Dioxide (21.0-32.0) mmol/L Anion Gap (3-11) mmol/L BUN (7-18) mg/dL Creatinine (0.70-1.30) mg/dL Estimated GFR/1.73 m2 (mL/min/1.73m2) Glucose (74-106) mg/dL Calcium (8.5-10.1) mg/dL Magnesium (1.8-2.4) mg/dL Total Bilirubin (0.2-1.0) mg/dL AST (15-37) U/L ALT (16-63) U/L Alkaline Phosphatase (46-116) U/L Troponin I (<0.06) ng/Ml Total Protein (6.4-8.2) g/dL Albumin (3.4-5.0) g/dL Urine Color (Yellow) Urine Clarity (Clear) Urine pH (5-8) Ur Specific Stowe (1.005-1.025) Urine Protein (Negative) mg/dL Urine Ketones (Negative) mg/dL Urine Blood (Negative) Urine Nitrite (Negative) Urine Bilirubin (Negative) Urine Urobilinogen (Up TO 0.2) EU/dL Ur Leukocyte Esterase (Negative) Urine RBC (0-2) HPF Urine WBC (0-5) HPF Ur Epithelial Cells (Negative) HPF Urine Crystals (Negative) HPF Urine Bacteria (Negative) HPF Urine Casts (Negative) LPF Urine Mucus (Negative) Ur Culture Indicated? Urine Glucose (Negative) mg/dL Urine Opiates Screen (Negative) Urine Methadone Screen (Negative) Ur Barbiturates Screen (Negative) Ur Tricyclics Screen (Negative) Ur Amphetamines Screen (Negative) U Benzodiazepines Scrn (Negative) Urine Cocaine Screen (Negative) Ur THC Screen (Negative) ECG Data Attestation: I personally reviewed and interpreted this ECG (s) as follows: Interpretation: rate of 58, sinus, LAFB, TWI in lead III, seen in previous EKG. No acute ST elevation or depression. IL 140. QTc 434. QRS 114. HPI General Mode of arrival: wheelchair . Date/Time Provider Initiated Documentation: 04/10/19 10:27 . Limitations to Documentation: no limitations . Information obtained by: patient . History of Present Illness 59 year old M presents to the emergency department with the chief complaint of dizziness, described as mild, and is localized to the head. Patient started experiencing this hour(s) (this morning) and it has been intermittent (now improving). Movement worsens symptoms . Patient notes denies confusion, chest pain, cough, diaphoresis, fever/chills, headaches, loss of appetite, malaise, nausea/vomiting, rash, seizure, shortness of breath, syncope and weakness. Patient did receive the following treatments prior to arrival, none Related Data Home Medications Medication Instructions Recorded Confirmed cetirizine 10 mg PO DAILY tab-cap 09/26/17 04/10/19 sildenafil [Viagra] 50 mg PO PRN 09/26/17 04/10/19 albuterol sulfate 2 puff INHALATION QID 12/03/18 04/10/19 lisinopril-hydrochlorothiazide 1 tab PO DAILY 03/09/19 04/10/19 acetaminophen [Mapap Extra 1,000 mg PO Q6H PRN PRN #0 tab 03/12/19 04/10/19 Strength] aspirin 81 mg PO DAILY #30 tab 03/12/19 04/10/19 atorvastatin 40 mg PO QHS #30 tab 03/12/19 04/10/19 docusate sodium [Colace] 100 mg PO BID #30 cap 03/12/19 04/10/19 meclizine 25 mg PO TID PRN PRN #30 tab 03/12/19 04/10/19 Previous Rx's Medication Instructions Recorded acetaminophen [Mapap Extra 1,000 mg PO Q6H PRN PRN #0 tab 03/12/19 Strength] aspirin 81 mg PO DAILY #30 tab 03/12/19 atorvastatin 40 mg PO QHS #30 tab 03/12/19 docusate sodium [Colace] 100 mg PO BID #30 cap 03/12/19 meclizine 25 mg PO TID PRN PRN #30 tab 03/12/19 Allergies Allergy/AdvReac Type Severity Reaction Status Date / Time No Known Allergies Allergy Verified 04/10/19 10:36 General Stated Complaint: Dizzy/Sync VERITO: 3 Review of Systems All systems reviewed & are unremarkable except as noted in HPI and below Constitutional Constitutional: Reports as per HPI, Denies chills and Denies fever(s) Eyes Eyes: Denies blurry vision ENT Ears, Nose, Mouth, and Throat: Reports dizziness, Denies sore throat and Denies throat swelling Cardiovascular Cardiovascular: Denies chest pain and Denies dyspnea Respiratory Respiratory: Denies cough and Denies dyspnea Gastrointestinal Gastrointestinal: Denies abdominal pain, Denies diarrhea and Denies vomiting Genitourinary Genitourinary: Denies hematuria and Denies dysuria Musculoskeletal Musculoskeletal: Denies back pain and Denies numbness Integumentary/Breasts Skin/Breast: Denies lesions and Denies rash Neurologic Neurologic: Reports dizziness, Denies focal weakness and Denies numbness Allergic/Immunologic Allergic/Immunologic: Denies throat swelling [facility] Medical History Alcohol consumption binge drinking Allergic rhinitis Chronic anxiety Chronic low back pain Chronic obstructive lung disease Degenerative joint disease Depression Erectile dysfunction Hamstring tendinitis hypertension,borderline Onychomycosis Prediabetes Tobacco dependency Surgical History Colonoscopy - MAC (12/01/17) eye surgery trauma as a child H/O right inguinal hernia repair (Acute) S/P left inguinal hernia repair (Acute) 12/10/18, Dr Shanice Benavidez, [facility] Family History Mother , cancer Personal history of malignant neoplasm Father Stroke Hypertension Social History Smoking/Tobacco Use Status: Current every day Alcohol Intake: current Alcohol Intake frequency: 0-2 drinks per day Alcohol type: beer Drug use: Daily Substance use type: marijuana Additional Social history: homeless. Pt will be staying temporarily with DaughterMelissa, following procedure. Exam Const General: cooperative and healthy appearing Orientation: alert and awake HENMS Head: normal to inspection Ears: hearing grossly normal bilaterally, external ears normal, TM's normal bilaterally and TM abnormal with fluid behind the TM bilaterally General nose exam: external nose normal Face and sinus: normal facial exam Mouth: oral mucosae normal Teeth and gingiva: dentition normal Throat: posterior oropharynx normal Eyes General: appearance normal, both eyes and all related structures Eyelids: eyelids normal Pupils: PERRL EOM: EOM intact bilaterally Neck Neck: normal visual inspection Lymphatic: no lymphadenopathy noted Chest Chest: normal inspection of the chest Resp Effort & Inspection: normal respiratory effort and able to speak in complete sentences Auscultation: clear to auscultation bilaterally Cardio Rate: regular rate Rhythm: regular rhythm GI Inspection: normal to inspection Palpation: soft, not firm, no guarding, no hepatosplenomegaly, no masses and nontender Auscultation: normal bowel sounds Back/Spine/Pelvis Thoracic/Lumbar Spine: thoracic and lumbar spine normal to inspection Skin General skin exam: no rashes or lesions noted Neuro General: alert and awake Cranial Nerves: CN's II-XI intact bilaterally Cognition: normal cognition Speech: speech normal Gait: normal gait Motor: muscle tone normal throughout and strength 5/5 throughout Sensory Exam: no sensory deficits noted Extrem General: normal to inspection, full ROM and normal capillary refill Psych Appearance: grossly normal Mental Status: mental status grossly normal Speech and Movement: speech and movement normal Affect: normal affect Thought Process: normal Course Vital Signs Vital signs: Vital Signs Temperature 98.1 F 04/10/19 10:32 Pulse 62 04/10/19 10:32 Respiratory Rate 16 04/10/19 10:32 Blood Pressure 161/92 H 04/10/19 10:32 Pulse Oximetry 98 04/10/19 10:32 Temperature 98.1 F 04/10/19 10:32 Temperature Source Skin 04/10/19 10:32 Pulse 62 04/10/19 10:32 Respiratory Rate 16 04/10/19 10:32 Respiratory Effort Non-Labored 04/10/19 10:32 Blood Pressure 161/92 H 04/10/19 10:32 Blood Pressure Position Sitting 04/10/19 10:32 Pulse Oximetry 98 11/30/19 10:32 Oxygen Delivery Method Room Air 04/10/19 10:32 Oxygen Flow Rate 0 04/10/19 10:32 Pain Level 0 04/10/19 10:32
[2019-04-10 10:58] LABS: Bilirubin Negative (Negative); Blood Trace-intact (Negative); Clarity Clear (Clear); Glucose Negative (Negative); Ketones Negative (Negative); Leukocyte Esterase Negative (Negative); Nitrite Negative (Negative); Specific Gravity 1.015 (1.005-1.025); Urobilinogen 0.2 EU/dL (Up TO 0.2)
[2019-04-10] MEDS: Normal Saline 1,000 ML 1000 ML IV (11:00)
--- NOTE | 2019-04-10 11:06 | DI.CT_ITS ---
EXAM: CT HEAD WO CLINICAL HISTORY: dizzy, h/o recent subacute L cerebellum infarct COMPARISON: CT HEAD WO from 03/09/2019 MR BRAIN WO from 03/10/2019 FINDINGS: There are areas of decreased attenuation in the left cerebellum consistent with the patient's known l eft cerebellar infarct. No acute intracranial hemorrhage, midline shift or mass effect is identified . The ventricles and sulci are consistent with the patient's age. There are areas of decreased atte nuation in the white matter most consistent with small vessel ischemic disease. The ventricles are i ntact. The basilar cisterns are patent. There is mild mucosal thickening in the visualized paranasa l sinuses. There is a soft tissue mass or polyp seen in the left nasal passageway. This is unchange d. The calvarium is intact. IMPRESSION: 1. No acute intracranial process. 2. Known left cerebellar infarct. 3. Stable left nasal mass or polyp.
[2019-04-10 11:08] VITALS: RESP 16
[2019-04-10 11:08] LABS: Abs Immature Grans 0.02 k/cumm (0.0-0.09); Absolute Basophil Count 0.08 k/cumm (0.0-0.2); Absolute Eosinophil Count 0.44 k/cumm (0.0-0.7); Absolute Lymphocyte Count 2.18 k/cumm (1.2-3.4); Absolute Monocyte Count 0.74 k/cumm (0.11-0.7); Absolute Neutrophil Count 3.55 k/cumm (1.2-6.7); Basophils % 1.1; Eosinophils % 6.3; HCT 38.8 % (40.0-50.0); HGB 12.8 g/dL (13.5-17.5); Immature Grans % 0.3; Lymphocytes % 31.1; Mean Corpuscular Hemoglobin 28.5 pg (27.0-33.0); Mean Corpuscular Volume 86.4 fL (80-95); Mean Platelet Volume 9.6 fL (8.0-11.0); Monocytes % 10.6; Neutrophils % 50.6; Platelet Count 284 x1000/uL (130-400); RBC 4.49 m/cumm (4.50-6.00); RBC Distribution Width 13.8 % (11.8-14.1); White Blood Cell Count 7.01 k/cumm (4.4-10.8)
[2019-04-10 11:10] LABS: Bacteria Negative HPF (Negative); C & S Indicated? No; Casts Negative LPF (Negative); Crystals Negative HPF (Negative); Epithelial Cells Negative HPF (Negative); Mucus Negative (Negative); WBC 0-2 HPF (0-5)
[2019-04-10 11:22] LABS: *AMPHETAMINES SCREEN URINE Negative (Negative); *BARBITURATES SCREEN URINE Negative (Negative); *BENZODIAZEPINES SCREEN URINE Negative (Negative); Cannabinoids THC POSITIVE (Negative); Cocaine Screen,Urine Negative (Negative); METHADONE URINE SCREEN Negative (Negative); OPIATES URINE SCREEN Negative (Negative)
[2019-04-10 11:25] LABS: ALT 31 U/L (16-63); AST 21 U/L (15-37); Albumin 3.6 g/dL (3.4-5.0); Alkaline Phosphatase 74 U/L (46-116); Anion Gap 8.4 mmol/L (3-11); BUN 13 mg/dL (7-18); Bilirubin, Total 0.5 mg/dL (0.2-1.0); CO2 29.6 mmol/L (21.0-32.0); CREATININE 0.96 mg/dL (0.70-1.30); Calcium 8.7 mg/dL (8.5-10.1); Chloride 101 mmol/L (98-107); Glucose 91 mg/dL (74-106); Magnesium 2.1 mg/dL (1.8-2.4); PTT Activated 25.8 sec (21.0-31.4); Potassium 3.5 mmol/L (3.5-5.1); Sodium 139 mmol/L (136-145); Total Protein 7.6 g/dL (6.4-8.2)
--- NOTE | 2019-04-10 11:25 | DI.RAD_ITS ---
EXAM: XR CHEST 2V PA LATERAL INDICATION: dizzy, r/o acute disease. COMPARISON: XR CHEST 2V PA LATERAL from 03/09/2019 TECHNIQUE: 2D digital imaging was performed. FINDINGS: The heart size and pulmonary vasculature are within normal limits. No focal consolidating infiltrate s or effusions are present. No pneumothorax is identified. There is a question of a nodular density in the right lower lung field projected over the posterior aspect of the right 9th rib. This may re present a nipple shadow or confluence of lung markings. Pulmonary nodule cannot be entirely excluded . The lungs are otherwise clear. Degenerative changes are seen in the spine. IMPRESSION: 1. No acute pulmonary process. 2. Question of a nodular density projected over the right lower lung field. This may represent a pul monary nodule, confluence of lung marking or nipple shadow. A repeat frontal view of the chest with nipple markers is recommended for further evaluation.
[2019-04-10 11:33] LABS: Troponin I < 0.05 ng/Ml (<0.06)
[2019-04-10 11:33] LABS: Tricyclic Antidepressants Negative (Negative)
--- NOTE | 2019-04-10 11:46 | DI.VRAD_ITS ---
PROCEDURE INFORMATION: Exam: CT Head Without Contrast Exam date and time: 04/10/2019 10:50 AM Age: 59 years old Clinical history: Device placement; Other: Dizzy, h/o recent subacute L cerebellum infarct TECHNIQUE: Imaging protocol: Computed tomography of the head without contrast. Radiation optimization: All CT scans at this facility use at least one of these dose optimization techniques: automated exposure control; mA and/or kV adjustment per patient size (includes targeted exams where dose is matched to clinical indication); or iterative reconstruction. COMPARISON: CT HEAD WO 03/09/2019 6:39 PM FINDINGS: Brain: Evolving infarction of the left cerebellum as evidenced by small hypodensities. No hyperdensity to suggest hemorrhage. No abnormal extra-axial fluid collection. No mass or midline shift. No herniation. Age-appropriate brain volume. Unchanged few scattered hypodense foci within the white matter likely related to small vessel microangiopathy. Ventricles: Normal. No ventriculomegaly. Bones/joints: Unremarkable. No acute fracture. Sinuses: Scattered mucosal thickening. No fluid levels. Polyp/mass in the posterior left choana is again seen. Mastoid air cells: Visualized mastoid air cells are well aerated. Soft tissues: Unremarkable. Vasculature: Atherosclerotic calcifications of the intracranial arteries. IMPRESSION: 1. No acute intracranial abnormality. 2. Known left cerebellar infarct. No hemorrhage. 3. Known left choana polyp/mass. Dictated and Authenticated by: Jin Prince MD. Ordering:GHAZAL Betts MD
--- NOTE | 2019-04-10 11:48 | DI.VRAD_ITS ---
PROCEDURE INFORMATION: Exam: XR Chest, 2 Views Exam date and time: 04/10/2019 11:27 AM Age: 59 years old Clinical history: Other: Dizzy, R/O acute disease TECHNIQUE: Imaging protocol: XR of the chest Views: 2 views. COMPARISON: CR XR CHEST 2V PA LATERAL 03/09/2019 6:49 PM FINDINGS: Lungs: No consolidation. Bilateral subtle nodular opacities which have the appearance of nipple shadows. Pleural space: Unremarkable. No pleural effusion. No pneumothorax. Heart/Mediastinum: Unremarkable. No cardiomegaly. Bones/joints: Unchanged. IMPRESSION: 1. No acute findings. 2. Bilateral subtle nodular opacities which have the appearance of nipple shadows. Consider repeat radiographs with nipple markers if of concern. Dictated and Authenticated by: Jin Prince MD. Ordering:GHAZAL Betts MD
[2019-04-10 12:15] VITALS: BP 147/82; PULSE 59; RESP 16; O2SAT 98
[2019-04-10 13:33] VITALS: BP 139/88; PULSE 60; RESP 16; O2SAT 98
[2019-04-10 13:50] VITALS: BP 139/88; PULSE 60; RESP 16; TEMP 36.7; O2SAT 98
== END 2019-04-10 13:51 | disposition home or self-care (01) ==
PROVIDERS: Emergency Provider Physician Assistant; PCP Family Medicine
DX: R42 Dizziness and giddiness (principal); E86.0 Dehydration; I44.4 Left anterior fascicular block; I10 Essential (primary) hypertension; J44.9 Chronic obstructive pulmonary disease, unspecified; F17.210 Nicotine dependence, cigarettes, uncomplicated
CPT/HCPCS: 36415; 80053; 80307; 93005; 96360; 99285; 70450; 71046; 81003; 81015; 83735; 84484; 85025; 85610; 85730; 93010

== ENCOUNTER → 2019-04-20 12:11 | Outpatient (BNVA) | payer MEDICARE, SELFPAY | PROVIDERS: PCP Family Medicine; Referring Provider Family Medicine; Visit Provider Psychiatry & Neurology Neurology | DX: G20 Parkinson's disease (principal); I63.342 Cerebral infarction due to thrombosis of left cerebellar artery; J30.9 Allergic rhinitis, unspecified; F14.90 Cocaine use, unspecified, uncomplicated; F17.210 Nicotine dependence, cigarettes, uncomplicated | CPT/HCPCS: 99214 ==

== ENCOUNTER 2019-06-28 22:38 | Outpatient (REF) | payer MEDICARE, SELFPAY ==
[2019-06-28 20:34] LABS: Iron 64 ug/dL (65-175); Total Iron Binding Capacity 305 ug/dL (250-450); Transferrin Sat 21 % (20-55)
[2019-06-28 20:56] LABS: Calculated LDL 70 mg/dL (<100); Cholesterol 147 mg/dL (<200); HDL Cholesterol 66 mg/dL (40-60); Triglyceride 56 mg/dL (<150); Vitamin B12 373 pg/mL (193-986)
== END 2019-06-28 22:58 ==
LOC: NCHCN 22:38
PROVIDERS: PCP Family Medicine; Visit Provider Family Medicine
DX: D64.9 Anemia, unspecified (principal); I10 Essential (primary) hypertension; G46.4 Cerebellar stroke syndrome
CPT/HCPCS: 80061; 82607; 83540; 83550

== ENCOUNTER 2021-02-23 19:14 | Outpatient (REF) | payer MEDICARE, SELFPAY ==
[2021-02-23 19:45] LABS: HCT 42.6 % (40.0-50.0); HGB 13.9 g/dL (13.5-17.5); MCH 27.4 pg (27.0-33.0); MCHC 32.6 % (32.0-36.0); MPV 10.7 fL (8.0-11.0); Platelet Count 272 10^3/uL (130-400); RBC 5.07 10^6/uL (4.36-5.78); RDW 13.9 % (11.8-14.1); RDW-SD 42.7 fL; WBC 7.22 10^3/uL (4.4-10.8)
[2021-02-23 19:58] LABS: Anion Gap 7.6 mmol/L (3-11); BUN 14 mg/dL (7-18); CO2 26.4 mmol/L (21.0-32.0); CREATININE 1.1 mg/dL (0.70-1.30); Calcium 8.7 mg/dL (8.5-10.1); Chloride 100 mmol/L (98-107); Glucose 97 mg/dL (74-106); Potassium 3.9 mmol/L (3.5-5.1); Sodium 134 mmol/L (136-145)
[2021-02-23 20:09] LABS: Hemoglobin A1C 5.9 % (<5.7)
== END 2021-02-23 19:15 | disposition home or self-care (01) ==
LOC: NCHCN 19:14
PROVIDERS: PCP Family Medicine; Visit Provider Family Medicine
DX: R73.03 Prediabetes (principal); I10 Essential (primary) hypertension; D64.9 Anemia, unspecified
CPT/HCPCS: 80048; 85027; 83036

== ENCOUNTER 2021-05-17 03:09 | Outpatient (CLI) | payer MEDICARE, SELFPAY ==
--- NOTE | 2021-05-17 | DI.CTLCSR_ITS ---
Exam(s) CT CHEST LUNG CANCER SCREEN EXAM: CT CHEST LUNG CANCER SCREEN CLINICAL HISTORY: CIGARETTE SMOKER F17.210, SCREENING FOR LUNG CANCER TECHNIQUE: Imaging Protocol: Axial computed tomography images with coronal and sagittal reformatted images were created and reviewed COMPARISON: CR,XR XR CHEST 2V PA LATERAL from 04/10/2019 FINDINGS: Tracheobronchial tree: Patent where visualized. Pulmonary parenchyma: No focal consolidating infiltrate is seen. There is a small reticular nodular infiltrate in the right lower lobe medially. Mild centrilobular emphysematous changes are present. Lung Nodules: There are few tiny (less than 3 mm) pleural based nodules. There is a 3 mm nodule in t he left lower lobe. Mediastinum and Ewa: No dominant adenopathy or fluid collection. The esophagus is unremarkable. Thyroid gland: Unremarkable. Lymph nodes: Unremarkable. Pleura: No effusion or pneumothorax. Heart: The heart is not dilated. Coronary artery calcifications are present. No pericardial effusion . Aorta: Thoracic aorta non-dilated.Atherosclerosis. Upper abdomen: Unremarkable. Soft Tissues: Bilateral gynecomastia. Bones: Within normal limits. IMPRESSION: 1. Small pulmonary nodules as described above. 2. Small reticular nodular infiltrate in the right lower lobe. This is nonspecific. This may repres ent an infectious or inflammatory process. Please correlate clinically. Lung RADS Cat 2 - Benign Appearance / Behavior: Nodules with a very low likelihood of becoming a clin ically active cancer due to size or lack of growth Lung-RADS 1.0 CATEGORIES: Category 0 - Prior chest CT exam(s) being located for comparison. Category 1 - Annual screening in 12 months. No nodules or definitely benign nodules. Category 2 - Annual screening in 12 months. Benign appearance. Nodules with low likelihood of becomin g active cancer. Category 3 - 6-month follow-up. Probably benign. Short-term follow-up suggested. Nodules with low lik elihood of becoming active cancer. Category 4A - 3-month follow-up and CT/PET if >8 mm in size. Suspicious finding. Findings which requi re additional testing. Category 4B - Findings which require additional testing and tissue sampling. Suspicious finding. Category 4X - Category 3 or 4 nodules with additional features or imaging findings that increases the suspicion of malignancy. Modifier S- Potentially clinically significant finding. (Non lung cancer) RADIATION DOSE DELIVERED: 81.51mGy.cm Total DLP 1.84mGy CTDIvol 81.51mGy.cm Total DLP 1.84mGy CTDIvol DATA REPOSITORY: All CT scans at this facility are submitted to the National Radiology Data Registry (NRDR) Dose Index Registry (DIR) with the [employer] (ACR). RADIATION OPTIMIZATION: All CT scans at this facility use at least one of these dose optimization te chniques: automated exposure control; mA and/or kV adjustment per patient size (includes targeted exa ms where dose is matched to clinical indication); or iterative reconstruction.
== END 2021-05-17 03:29 ==
PROVIDERS: PCP Family Medicine; Visit Provider Family Medicine
DX: F17.210 Nicotine dependence, cigarettes, uncomplicated (principal); Z12.2 Encounter for screening for malignant neoplasm of respiratory organs; R91.1 Solitary pulmonary nodule; R91.8 Other nonspecific abnormal finding of lung field
CPT/HCPCS: 71271

== ENCOUNTER 2022-03-11 15:10 | Outpatient (REF) | payer MEDICARE, SELFPAY ==
[2022-03-11 16:39] LABS: Anion Gap 8.4 mmol/L (3-11); BUN 25 mg/dL (7-18); CO2 27.6 mmol/L (21.0-32.0); Calcium 9.1 mg/dL (8.5-10.1); Chloride 106 mmol/L (98-107); Glucose 84 mg/dL (74-106); Potassium 4.3 mmol/L (3.5-5.1); Sodium 142 mmol/L (136-145)
[2022-03-11 18:18] LABS: Hemoglobin A1C 6.2 % (<5.7)
[2022-03-12 19:16] LABS: HIV-1/2 Ag & Ab Screen Negative (Negative)
[2022-03-12 20:07] LABS: Hepatitis B Surface Ag Negative (Negative)
[2022-03-12 20:46] LABS: Hepatitis C Ab w Rflx HCV PCR Negative (Negative)
== END 2022-03-11 15:11 | disposition home or self-care (01) ==
LOC: NCHCN 15:10
PROVIDERS: PCP Family Medicine; Visit Provider Family Medicine
DX: R73.03 Prediabetes (principal); Z11.4 Encounter for screening for human immunodeficiency virus [HIV]; Z11.59 Encounter for screening for other viral diseases; I10 Essential (primary) hypertension
CPT/HCPCS: 80048; 86803; 87340; 87389; 83036

== ENCOUNTER 2022-03-20 12:05 | Emergency (ER) | payer MEDICARE, SELFPAY ==
[2022-03-20 12:10] VITALS: BP 141/82; PULSE 72; RESP 20; TEMP 36.5; O2SAT 99
--- NOTE | 2022-03-20 12:30 | RT.EKG_ITS ---
APPROVED REPORT Exam: Resting ECG Reason for Exam: Visual disturbances Patient Location: E HR:57 bpm ECG Measurements Heart Rate 57 AXIS GA 154 P -47 QRSd 122 QRS -44 QT 451 T 8 QTc 440 Conclusion Sinus or ectopic atrial bradycardia...P axis (-45,135), rate< 60 no STEMI, non-diagnostic EKG I have reviewed and interpreted ECG and agree with software generated interpretation.
--- NOTE | 2022-03-20 12:30 | DI.CT_ITS ---
Exam(s) CT BRAIN NECK CTA EXAM: CT BRAIN NECK CTA CLINICAL HISTORY: Right eye double vision, right head pressure. TECHNIQUE: Imaging Protocol: Axial CT angiography was performed with multi-slice acquisition and mu lti-planar and/or 3D reconstructions. CONTRAST MATERIAL: Intravenous: Omnipaque 350 contrast volume:85 mL COMPARISON: CT CT HEAD WO from 04/10/2019 FINDINGS: CT Head W/O and W: Ventricles and Extra axial spaces: Normal in size and morphology for the patient's age. Hemorrhage: None. Cerebral parenchyma: Normal. Midline shift: None. Brainstem/Cerebellum: Normal. Calvarium: Normal. Visualized Paranasal sinuses/Mastoids: Clear. Soft Tissues: Unremarkable. Enhancement: Unremarkable. CTA Neck W: Enhancement is suboptimal. Common Carotid: Right: No dissection, occlusion or significant stenosis. Left: No dissection, occlusion or significant stenosis. External Carotid: Right: No occlusion or significant stenosis. Left: No occlusion or significant stenosis. Internal Carotid: Right: No dissection, occlusion or significant stenosis. [id number] calcification at its origi n. There is less than 50 percent stenosis. Left: No dissection, occlusion or significant stenosis. Mild atherosclerosis at its origin. There i s less than 50 percent stenosis. Vertebral Artery: Right: No dissection, occlusion or significant stenosis. There is a dominant right vertebral artery. Left: There is poor enhancement of the cervical arteries particularly the left vertebral artery. It appears thin throughout its length. Lung Apices: Normal. Bones: Within normal limits for the patient's age. Cervical spondylosis is present. There is straigh tening of the normal cervical lordosis. This may be due to muscle spasm or patient positioning. Soft Tissues: Normal. Thyroid gland: Unremarkable. CTA Brain W: Internal Carotid Arteries: Normal. Atherosclerosis is present. No significant stenosis or occlusion is seen. Anterior Cerebral Arteries: Right: No aneurysm, occlusion or significant stenosis. Left: No aneurysm, occlusion or significant stenosis. Middle Cerebral Arteries: Right: No aneurysm, occlusion or significant stenosis. Left: No aneurysm, occlusion or significant stenosis. Posterior Cerebral Arteries: Right: No aneurysm, occlusion or significant stenosis. The right [employer] arises from the right communica ting artery. This is a normal variant. Left: No aneurysm, occlusion or significant stenosis. Vertebral Arteries: Right: No aneurysm, occlusion or significant stenosis. There is a dominant right vertebral artery. Left: No aneurysm, occlusion or significant stenosis. The left vertebral artery appears thin through its entire length. It is not well visualized at the level of the skull-base through C3. It is visu alized again just proximal to its junction to form the basilar artery. Basilar Artery: No aneurysm, occlusion or significant stenosis. IMPRESSION: 1. No large vessel occlusion or significant stenosis on the CT angiography of the head. 2. No acute intracranial process. 3. No occlusion or significant stenosis on the CT angiography of the neck. There is suboptimal visua lization of the left vertebral artery. It appears thin throughout its entire course. It is not well visualized at the level of the skull-base through C3. This may represent an occlusion or stenosis. MRI should be considered for further evaluation. 4. Findings were discussed with Jenna Lopez at 2:25 p.m. on 03/20/2022. RADIATION DOSE DELIVERED: 2,172.44mGy.cm Total DLP DATA REPOSITORY: All CT scans at this facility are submitted to the National Radiology Data Registry (NRDR) Dose Index Registry (DIR) with the [employer] (ACR). RADIATION OPTIMIZATION: All CT scans at this facility use at least one of these dose optimization te chniques: automated exposure control; mA and/or kV adjustment per patient size (includes targeted exa ms where dose is matched to clinical indication); or iterative reconstruction.
--- NOTE | 2022-03-20 12:36 | W.ED.GENAD ---
Discharge Plan Disposition Patient Disposition: HOME Condition: Stable Discharge Details Clinical Impression: Diplopia Primary Care Provider: Jin Payan ED Provider: Jenna Lopez Home Meds and New Rx's Prescriptions: New prednisone 20 mg tablet 40 mg PO DAILY 5 Days Qty: 10 0RF No Action fluticasone propionate [Flonase Allergy Relief] 50 mcg/actuation spray,suspension 1 spray ROBERTO DAILY PRN (Reason: nasal congestion) atorvastatin 20 mg tablet 20 mg PO QHS Qty: 30 12RF sildenafil [Viagra] 50 MG tablet 50 mg PO PRN cetirizine 10 MG tablet,chewable 10 mg PO DAILY albuterol sulfate 90 mcg/actuation Hfa Aerosol Inhaler 2 puff INHALATION QID lisinopril-hydrochlorothiazide 10-12.5 mg Tablet 1 tab PO DAILY aspirin 81 mg Tablet,Chewable 81 mg PO DAILY Qty: 30 0RF Discharge Instructions Instructions: Diplopia (ED) Additional Instructions: Please follow-up with [facility] eye care tomorrow or the next day. Follow up with primary care provider in 3-5 days. Return to ED sooner if any worsening or concerns. Increase oral fluids. Please return if any worsening of your headache or concerns for an MRI. Please discuss obtaining an MRI with your primary care provider. Keep your eye patched as needed while driving or for performing activities. Please take Tylenol with food every 4-6 hours as needed for pain and swelling. Please take the prednisone 2 tablets a day for the next 5 days. Stand Alone Forms: Work Release Referrals: Jin Payan [Primary Care Provider] - 5 days Discharge Data Discharge Date/Time-TO BE ENTERED AT DEPARTURE: 03/20/22 15:36 Medical Decision Making 61-year-old male presents to the ER with a chief complaint of right eye double vision which occurred after a coughing fit on Friday. He reports he was driving and coughed and had severe pain in his right eye and lost vision to his right eye. Since then his vision has somewhat returned however he still has some pressure behind his right eye and what he describes as vertical angled double vision. She does have a past medical history of dizziness, vertigo, cocaine use, hypercholesterolemia, anxiety and hypertension Wood lamp exam performed no uptake and dye, slit-lamp is not available at this time. Due to patient's symptoms, past medical history of high blood pressure and high cholesterol, and age and acute onset will order labs and CTA of brain and neck to rule out CVA. CTA results are largely unremarkable however radiologist was unable to see the entire length of the right vertebral artery. MRI is not available at this time. I did discuss this with the patient and encouraged him to follow-up with [facility] in the next 24 to 48 hours, discussed MRI imaging with his PCP and or to return to the ER. He verbalized understanding. I did place an eye patch prior to his discharge patient was given Tylenol prednisone 40 mg daily for the next 5 days. Differential diagnosis includes but not limited to temporal arteritis, cranial nerve palsy, CVA, optic nerve disorder This text was generated using [employer] Search[employer] system, please disregard any oddities of phrase or misspellings. Medical Records Medical records reviewed: Yes I reviewed the patient's medical records. Lab Data Lab results reviewed: Yes I reviewed the patient's lab results. Labs: Laboratory Tests Range/Units 03/20/22 03/20/22 03/20/22 12:49 12:49 15:34 WBC (4.4-10.8) 10^3/uL 6.83 RBC (4.36-5.78) 10^6/uL 5.00 Hgb (13.5-17.5) g/dL 13.9 Hct (40.0-50.0) % 42.3 MCV (80-95) fL 85 MCH (27.0-33.0) pg 27.8 MCHC (32.0-36.0) % 32.9 RDW (11.8-14.1) % 13.4 Plt Count (130-400) 10^3/uL 259 MPV (8.0-11.0) fL 9.4 Immature Gran % 0.4 Neutrophils % 48.9 Lymphocytes % 37.3 Monocytes % 9.5 Eosinophils % 2.9 Basophils % 1.0 Nucleated RBC % (0.0-0.3) % 0.0 Absolute Neutrophils (1.2-6.7) 10^3/uL 3.33 Absolute Lymphocytes (1.2-3.4) 10^3/uL 2.55 Absolute Monocytes (0.1-0.8) 10^3/uL 0.65 Absolute Eosinophils (0.0-0.7) 10^3/uL 0.20 Absolute Basophils (0.0-0.2) 10^3/uL 0.07 Sodium (136-145) mmol/L 140 Potassium (3.5-5.1) mmol/L 3.8 Chloride (98-107) mmol/L 104 Carbon Dioxide (21.0-32.0) mmol/L 28.6 Anion Gap (3-11) mmol/L 7.4 BUN (7-18) mg/dL 19 H Creatinine (0.70-1.30) mg/dL 1.1 Est GFR (CKD-EPI 2020) (mL/min/1.73m2) 75.90 Glucose (74-106) mg/dL 102 Calcium (8.5-10.1) mg/dL 9.1 Magnesium (1.8-2.4) mg/dL 2.1 Total Bilirubin (0.2-1.0) mg/dL 0.7 AST (15-37) U/L 27 ALT (16-63) U/L 38 Alkaline Phosphatase (46-116) U/L 92 Troponin I (<or=60) ng/L < 50 Cancelled Total Protein (6.4-8.2) g/dL 8.0 Albumin (3.4-5.0) g/dL 4.1 HPI General Mode of arrival: ambulatory. Date/Time Provider Initiated Documentation: 03/20/22 12:07. Limitations to Documentation: no limitations. Information obtained by: patient, RN notes reviewed and old records reviewed. HPI Narrative: 61-year-old male presents to the ER with a chief complaint of right eye double vision which occurred after a coughing fit on Friday. He reports he was driving and coughed and had severe pain in his right eye and lost vision to his right eye. Since then his vision has somewhat returned however he still has some pressure behind his right eye and what he describes as vertical angled double vision. She does have a past medical history of dizziness, vertigo, cocaine use, hypercholesterolemia, anxiety and hypertension. He is alert and oriented no focal neurodeficits noted on exam EOMs are intact. [place] lamp shows no uptake of dye no corneal abrasion. Intraocular pressure was obtained which is 11. Related Data Home Medications Medication Instructions Recorded Confirmed cetirizine 10 mg chewable tablet 10 mg PO DAILY 09/26/17 04/20/19 sildenafil 50 mg tablet (Viagra) 50 mg PO PRN 09/26/17 04/20/19 albuterol sulfate 90 mcg/actuation 2 puff inhalation QID 12/03/18 04/20/19 aerosol inhaler lisinopril 10 1 tab PO DAILY 03/09/19 04/20/19 mg-hydrochlorothiazide 12.5 mg tablet aspirin 81 mg chewable tablet 81 mg PO DAILY #30 tabs 03/12/19 04/20/19 atorvastatin 20 mg tablet 20 mg PO QHS #30 tabs 04/20/19 04/20/19 fluticasone propionate 50 1 spray intranasal DAILY PRN nasal 04/20/19 04/20/19 mcg/actuation nasal congestion spray,suspension (Flonase Allergy Relief) prednisone 20 mg tablet 40 mg PO DAILY 5 days #10 tabs 03/20/22 Previous Rx's Medication Instructions Recorded aspirin 81 mg chewable tablet 81 mg PO DAILY #30 tabs 03/12/19 atorvastatin 20 mg tablet 20 mg PO QHS #30 tabs 04/20/19 prednisone 20 mg tablet 40 mg PO DAILY 5 days #10 tabs 03/20/22 Allergies Allergy/AdvReac Type Severity Reaction Status Date / Time No Known Allergies Allergy Verified 04/20/19 12:16 General Stated Complaint: EyeProblem VERITO: 4 Review of Systems All systems reviewed & are unremarkable except as noted in HPI and below Constitutional Constitutional: Reports headache(s) Eyes Eyes: Reports as per HPI, Reports blurry vision, Reports change in vision, Reports diplopia, Reports irritation, Reports loss of vision and Reports eye pain ENT Ears, Nose, Mouth, and Throat: Denies vertigo, Denies dizziness, Denies otalgia and Reports headache(s) Cardiovascular Cardiovascular: Denies chest pain and Denies dyspnea Respiratory Respiratory: Denies dyspnea Musculoskeletal Musculoskeletal: Denies abnormal gait Neurologic Neurologic: Denies abnormal gait, Denies vertigo, Denies dizziness, Reports headache(s), Reports loss of vision and Reports other visual disturbances PFSH All Active Problems (Updated 03/20/22 @ 15:19 by Jenna Lopez NP) Diplopia (Acute) Nasal turbinate hypertrophy (Acute) Nasal obstruction (Acute) Allergic rhinitis due to allergen (Acute) Deviated nasal septum (Acute) Nasal polyp (Acute) Sensory hearing loss, unilateral (Acute) Environmental allergies (Acute) Smoker (Acute) Cocaine use (Acute) Thrombotic stroke involving cerebellar artery (Acute) Discharge planning issues (Acute) DVT prophylaxis (Acute) Upper respiratory infection (Acute) Dizziness (Acute) Vertigo (Acute) S/P left inguinal hernia repair (Acute) 12/10/18, Dr Shanice Benavidez, [facility] Left inguinal hernia (Acute) Right rotator cuff tendonitis (Acute) Medical History (Updated 03/20/22 @ 15:19 by Jenna Lopez NP) Alcohol consumption binge drinking Chronic anxiety Chronic low back pain Degenerative joint disease Depression Erectile dysfunction Hamstring tendinitis hypertension,borderline Onychomycosis Prediabetes Tobacco dependency Surgical History Colonoscopy - MAC (12/01/17) eye surgery trauma as a child H/O right inguinal hernia repair Family History Mother , cancer Personal history of malignant neoplasm Father Stroke Hypertension Social History Smoking/Tobacco Use Status: Current every day Tobacco Type: cigarettes Tobacco: How many years used: 20 Quit status: not considering quitting Second Hand Exposure: Yes Smoking risk assessment performed?: Yes Alcohol Intake: current Alcohol Intake frequency: 0-2 drinks per day Alcohol type: beer Drug use: Daily Substance use type: marijuana Seatbelt use: always Do you feel safe at home: Yes Do you feel safe in your relationship?: Yes Exam Eyes General: appearance normal, both eyes and all related structures Visual Hernadez: normal visual hernadez by confrontation (OS 20/25, OD 20/30, bilateral 20/25 corrected) Alignment and Position: alignment normal and position normal Periorbital: periorbital findings normal Eyelids: eyelids normal Conjunctivae: conjunctivae normal Cornea: corneas normal and fluorescein used Pupils: PERRL, normal by confrontation and accommodation normal EOM: EOM intact bilaterally Direct ophthalmoscopy: normal light reflex Other: No uptake and dye, pupil is reactive, Chest Chest: normal inspection of the chest Resp Effort & Inspection: normal respiratory effort Neuro General: patient alert, patient awake, patient oriented x3, tone normal and moves all extremities Cranial Nerves: CN's II-XI intact bilaterally, EOM intact bilaterally and tongue midline Cognition: normal cognition Speech: speech normal Gait: normal gait Motor: muscle tone normal throughout Sensory Exam: no sensory deficits noted Course Vital Signs Vital signs: Vital Signs Temperature 36.5 C 03/20/22 12:10 Pulse 72 03/20/22 12:10 Respiratory Rate 20 03/20/22 12:10 Blood Pressure 141/82 H 03/20/22 12:10 Pulse Oximetry 99 03/20/22 12:10 Temperature 36.5 C 03/20/22 12:10 Temperature Source Temporal Artery Scan 03/20/22 12:10 Pulse 72 03/20/22 12:10 Respiratory Rate 20 03/20/22 12:10 Blood Pressure 141/82 H 03/20/22 12:10 Pulse Oximetry 99 03/20/22 12:10 Oxygen Delivery Method Room Air 03/20/22 12:10 Oxygen Flow Rate 0 03/20/22 12:10
[2022-03-20 12:56] LABS: Abs Immature Grans 0.03 10^3/uL (0.0-0.06); Absolute Basophil Count 0.07 10^3/uL (0.0-0.2); Absolute Lymphocyte Count 2.55 10^3/uL (1.2-3.4); Absolute Monocyte Count 0.65 10^3/uL (0.1-0.8); Absolute Neutrophil Count 3.33 10^3/uL (1.2-6.7); Eosinophils % 2.9; HCT 42.3 % (40.0-50.0); HGB 13.9 g/dL (13.5-17.5); Immature Grans % 0.4; Lymphocytes % 37.3; MCH 27.8 pg (27.0-33.0); MCHC 32.9 % (32.0-36.0); MCV 85 fL (80-95); MPV 9.4 fL (8.0-11.0); Monocytes % 9.5; Neutrophils % 48.9; Platelet Count 259 10^3/uL (130-400); RDW 13.4 % (11.8-14.1); RDW-SD 41.3 fL; WBC 6.83 10^3/uL (4.4-10.8)
[2022-03-20 13:13] LABS: ALT 38 U/L (16-63); AST 27 U/L (15-37); Albumin 4.1 g/dL (3.4-5.0); Alkaline Phosphatase 92 U/L (46-116); Anion Gap 7.4 mmol/L (3-11); BUN 19 mg/dL (7-18); Bilirubin, Total 0.7 mg/dL (0.2-1.0); CO2 28.6 mmol/L (21.0-32.0); CREATININE 1.1 mg/dL (0.70-1.30); Calcium 9.1 mg/dL (8.5-10.1); Chloride 104 mmol/L (98-107); Glucose 102 mg/dL (74-106); Magnesium 2.1 mg/dL (1.8-2.4); Potassium 3.8 mmol/L (3.5-5.1); Sodium 140 mmol/L (136-145); Troponin I < 50 ng/L (<or=60)
[2022-03-20] MEDS: Omnipaque 350 MG/ML 500 ML BTL-Imaging package 85 ML IJ (13:52)
[2022-03-20] MEDS: predniSONE 20 MG TAB 40 MG PO (15:34)
[2022-03-20] MEDS: Acetaminophen 325 MG TAB 650 MG PO (15:34)
--- NOTE | 2022-03-21 09:01 | NUR.NOTE ---
Nursing Note: referral to cm to set up shipee appointment
== END 2022-03-20 15:36 | disposition home or self-care (01) ==
PROVIDERS: Emergency Provider Registered Nurse Emergency; PCP Family Medicine
DX: H53.2 Diplopia (principal); I10 Essential (primary) hypertension; E78.00 Pure hypercholesterolemia, unspecified
CPT/HCPCS: 70496; 70498; 80053; 93005; 99284; 83735; 84484; 85025; 93010; J7512

== ENCOUNTER 2022-04-04 17:27 | Inpatient (IN) | payer MEDICARE, SELFPAY ==
[2022-04-04] VITALS (30 sets, daily range): BP systolic 109–147; BP diastolic 65–97; PULSE 69–91; RESP 10–20; TEMP 36.4–37.8; O2SAT 92–100
--- NOTE | 2022-04-04 17:45 | DI.CT_ITS ---
Exam(s) CT BRAIN NECK CTA EXAM: CT BRAIN NECK CTA CLINICAL HISTORY: dizziness, falls, visual changes. TECHNIQUE: Imaging Protocol: Axial CT angiography was performed with multi-slice acquisition and mu lti-planar and/or 3D reconstructions. CONTRAST MATERIAL: Intravenous: Omnipaque 350 Contrast volume:structured data in ml COMPARISON: CT CT BRAIN NECK CTA from 03/20/2022 FINDINGS: CT angiography of the cervical cranial region was performed according to the usual protocol with intr avenous infusion of 85 cc of Omnipaque 350.. Initial noncontrast scanning of the head shows an area of decreased attenuation in right parietal occ ipital region consistent with subacute infarction infarction, no evidence of hemorrhage. Visualized lung apices are clear. Visualized portions of thoracic aorta and pulmonary arterial circul ation are unremarkable. There is no evidence of a cervical mass or adenopathy. The tracheal laryngeal structures appear intact. The left common, internal, and external carotid arteries are within normal limits in the cervical reg ion with no evidence of aneurysm, stenosis, or dissection The right proximal internal carotid artery shows atheromatous narrowing of less than 50 percent of th e luminal diameter. Otherwise the right common, internal, and external carotid arteries are unremark able. The vertebral arteries are unremarkable in appearance in the cervical region with no evidence of aneu rysm, stenosis, or dissection. Note is made of a right dominant vertebral circulation with a thread- like but patent left vertebral artery. The Intracranial portions of the internal carotid arteries appear normal with no evidence of aneurysm, st enosis, or dissection. Intracranial vertebral arteries and basilar artery appear normal with no evidence of aneurysm, stenos is or dissection. Thread-like left vertebral artery noted. No aneurysm identified in the region of the [id number]. There is paucity of parietal branches of right middle cerebral artery, suggesting occlusion. This was would be consistent with the observe d area of decreased attenuation in right parieto-occipital region consistent with subacute infarct Left middle cerebral artery and branches as well as bilateral anterior and posterior cerebral artery and branches are unremarkable.. No enhancing brain lesion identified on 5 minutes delayed images.. 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 No evidence of hemorrhage RADIATION DOSE DELIVERED: Total DLP Total DLP DATA REPOSITORY: All CT scans at this facility are submitted to the National Radiology Data Registry (NRDR) Dose Index Registry (DIR) with the [employer] (ACR). RADIATION OPTIMIZATION: All CT scans at this facility use at least one of these dose optimization te chniques: automated exposure control; mA and/or kV adjustment per patient size (includes targeted exa ms where dose is matched to clinical indication); or iterative reconstruction.
[2022-04-04 18:03] LABS: Abs Immature Grans 0.05 10^3/uL (0.0-0.06); Absolute Eosinophil Count 0.06 10^3/uL (0.0-0.7); Absolute Lymphocyte Count 3.32 10^3/uL (1.2-3.4); Absolute Monocyte Count 1.07 10^3/uL (0.1-0.8); Absolute Neutrophil Count 7.96 10^3/uL (1.2-6.7); Basophils % 0.6; Eosinophils % 0.5; HCT 40.4 % (40.0-50.0); HGB 13.8 g/dL (13.5-17.5); Immature Grans % 0.4; Lymphocytes % 26.5; MCH 28.5 pg (27.0-33.0); MCHC 34.2 % (32.0-36.0); MCV 83 fL (80-95); MPV 9.8 fL (8.0-11.0); Monocytes % 8.5; Neutrophils % 63.5; Platelet Count 297 10^3/uL (130-400); RBC 4.85 10^6/uL (4.36-5.78); RDW 13.4 % (11.8-14.1); RDW-SD 41.1 fL; WBC 12.53 10^3/uL (4.4-10.8)
[2022-04-04 18:04] LABS: Absolute Basophil Count 0.08 10^3/uL (0.0-0.2)
[2022-04-04] MEDS: Normal Saline 1,000 ML 1000 ML IV (18:14)
[2022-04-04] MEDS: Folic Acid 1 MG TAB PO (18:17)
[2022-04-04] MEDS: THIAMINE 100 MG in Normal Saline 100 ML 200 MG IVPB (18:17)
[2022-04-04 18:18] LABS: ALT 44 U/L (16-63); AST 27 U/L (15-37); Alkaline Phosphatase 86 U/L (46-116); BUN 14 mg/dL (7-18); Bilirubin, Total 1.2 mg/dL (0.2-1.0); CREATININE 1.1 mg/dL (0.70-1.30); Calcium 9.2 mg/dL (8.5-10.1); Chloride 95 mmol/L (98-107); Estimated GFR 75.43 (mL/min/1.73m2); Glucose 108 mg/dL (74-106); Potassium 3.7 mmol/L (3.5-5.1); Sodium 131 mmol/L (136-145)
--- NOTE | 2022-04-04 18:46 | ED.GENADUL_ITS ---
Discharge Plan Discharge Details Chief Complaint: Headache Primary Care Provider: Jin Payan ED Provider: Ady Langley Home Meds and New Rx's Prescriptions: No Action fluticasone propionate [Flonase Allergy Relief] 50 mcg/actuation spray,suspension 1 spray ROBERTO DAILY PRN (Reason: nasal congestion) atorvastatin 20 mg tablet 20 mg PO QHS Qty: 30 12RF sildenafil [Viagra] 50 MG tablet 50 mg PO PRN cetirizine 10 MG tablet,chewable 10 mg PO DAILY albuterol sulfate 90 mcg/actuation Hfa Aerosol Inhaler 2 puff INHALATION QID lisinopril-hydrochlorothiazide 10-12.5 mg Tablet 1 tab PO DAILY aspirin 81 mg Tablet,Chewable 81 mg PO DAILY Qty: 30 0RF Medical Decision Making 62-year-old male history of polysubstance abuse, presents with frontal headache and change in his vision, patient very poor historian unable to describe visual changes however he does have some light sensitivity, headache began approximately 1 day ago gradual in onset, cranial nerves II through XII intact 5 out of 5 strength upper and lower extremities, no truncal ataxia, afebrile nontoxic. Patient not cooperative with to perform visual acuity attempted. Consider atypical migraine versus tension headache versus Warnicke's encephalopathy versus intracranial hemorrhage, less likely meningeo encephalitis; will obtain labs imaging close reassessment. 19: 47 patient resting comfortably no acute distress. No change in mental status or neurological exam. Evidence of acute versus subacute MCA M2 occlusion with parietal occipital lobe changes. Have placed consultation with [facility] neurology for disposition planning. Sign Out Yes HPI General Date/Time Provider Initiated Documentation: 04/04/22 17:40 . HPI Narrative: 62-year-old male history of polysubstance use, presents with changes in his vision and headache over the last day, frontal in nature, light sensitivity, denies weakness or numbness, denies nausea or vomiting Related Data Home Medications Medication Instructions Recorded Confirmed cetirizine 10 mg chewable tablet 10 mg PO DAILY 09/26/17 04/04/22 sildenafil 50 mg tablet (Viagra) 50 mg PO PRN 09/26/17 04/04/22 albuterol sulfate 90 mcg/actuation 2 puff inhalation QID 12/03/18 04/04/22 aerosol inhaler lisinopril 10 1 tab PO DAILY 03/09/19 04/04/22 mg-hydrochlorothiazide 12.5 mg tablet aspirin 81 mg chewable tablet 81 mg PO DAILY #30 tabs 03/12/19 04/04/22 atorvastatin 20 mg tablet 20 mg PO QHS #30 tabs 04/20/19 04/04/22 fluticasone propionate 50 1 spray intranasal DAILY PRN nasal 04/20/19 04/04/22 mcg/actuation nasal congestion spray,suspension (Flonase Allergy Relief) Previous Rx's Medication Instructions Recorded aspirin 81 mg chewable tablet 81 mg PO DAILY #30 tabs 03/12/19 atorvastatin 20 mg tablet 20 mg PO QHS #30 tabs 04/20/19 Allergies Allergy/AdvReac Type Severity Reaction Status Date / Time No Known Allergies Allergy Verified 04/04/22 17:37 General Stated Complaint: Headache VERITO: 3 Review of Systems Narrative: Review of Systems Constitutional: negative Eyes: Visual changes ENT: negative Cardiovascular: negative Respiratory: negative Gastrointestinal: negative : negative Musculoskeletal: negative Skin: negative Neurologic: Headache Psych: negative PFSH All Active Problems (Updated 03/20/22 @ 15:19 by Jenna Lopez NP) Diplopia (Acute) Nasal turbinate hypertrophy (Acute) Nasal obstruction (Acute) Allergic rhinitis due to allergen (Acute) Deviated nasal septum (Acute) Nasal polyp (Acute) Sensory hearing loss, unilateral (Acute) Environmental allergies (Acute) Smoker (Acute) Cocaine use (Acute) Thrombotic stroke involving cerebellar artery (Acute) Discharge planning issues (Acute) DVT prophylaxis (Acute) Upper respiratory infection (Acute) Dizziness (Acute) Vertigo (Acute) S/P left inguinal hernia repair (Acute) 12/10/18, Dr Shanice Benavidez, [facility] Left inguinal hernia (Acute) Right rotator cuff tendonitis (Acute) Medical History (Updated 03/20/22 @ 15:19 by Jenna Lopez NP) Alcohol consumption binge drinking Chronic anxiety Chronic low back pain Degenerative joint disease Depression Erectile dysfunction Hamstring tendinitis hypertension,borderline Onychomycosis Prediabetes Tobacco dependency Surgical History Colonoscopy - MAC (12/01/17) eye surgery trauma as a child H/O right inguinal hernia repair Family History Mother , cancer Personal history of malignant neoplasm Father Stroke Hypertension Social History Smoking/Tobacco Use Status: Current every day Tobacco Type: cigarettes Tobacco: How many years used: 20 Quit status: not considering quitting Second Hand Exposure: Yes Smoking risk assessment performed?: Yes Alcohol Intake: current Alcohol Intake frequency: 0-2 drinks per day Alcohol type: beer Drug use: Daily Substance use type: marijuana Seatbelt use: always Do you feel safe at home: Yes Do you feel safe in your relationship?: Yes Exam Narrative Exam Narrative: Physical Examination General: alert, awake, cooperative, appears mildly uncomfortable HEENT: normocephalic, atraumatic; PERRL, EOM intact, conjunctiva normal; no nasal discharge; moist mucous membranes, oral and pharyngeal mucosa normal, tolerating secretions Neck: supple, trachea midline; full ROM Chest: normal to inspection Respiratory: normal respiratory effort, speaking in full sentences, clear to auscultation, no wheezing, rales or rhonchi Cardiac: regular rate, regular rhythm, S1S2 intact, no murmurs rubs or gallops GI: abdomen soft, non-tender, non-distended; no palpable mass or hepatosplenomegaly Skin: no lesions, rashes or trauma appreciated Neuro: AAOx3, normal speech, moving all extremities; cranial nerves II through XII intact, 5 out of 5 strength upper and lower extremities, no truncal ataxia Course Vital Signs Vital signs: Vital Signs Temperature 36.9 C 04/04/22 17:32 Pulse 88 04/04/22 17:32 Respiratory Rate 16 04/04/22 17:32 Blood Pressure 147/97 H 04/04/22 17:32 Pulse Oximetry 98 04/04/22 17:32 Temperature 36.9 C 04/04/22 17:32 Temperature Source Temporal Artery Scan 04/04/22 17:32 Pulse 88 04/04/22 17:32 Respiratory Rate 16 04/04/22 17:32 Respiratory Effort Non-Labored 04/04/22 17:35 Blood Pressure 147/97 H 04/04/22 17:32 Blood Pressure Position Sitting 04/04/22 17:32 Pulse Oximetry 98 04/04/22 17:32 Oxygen Delivery Method Room Air 04/04/22 17:32 Oxygen Flow Rate 0 04/04/22 17:32 Pain Level 10 04/04/22 17:36 Lab/Test Results Lab/Test Results: Laboratory Tests Range/Units 04/04/22 04/04/22 17:40 17:40 WBC (4.4-10.8) 10^3/uL 12.53 H RBC (4.36-5.78) 10^6/uL 4.85 Hgb (13.5-17.5) g/dL 13.8 Hct (40.0-50.0) % 40.4 MCV (80-95) fL 83 MCH (27.0-33.0) pg 28.5 MCHC (32.0-36.0) % 34.2 RDW (11.8-14.1) % 13.4 Plt Count (130-400) 10^3/uL 297 MPV (8.0-11.0) fL 9.8 Immature Gran % 0.4 Neutrophils % 63.5 Lymphocytes % 26.5 Monocytes % 8.5 Eosinophils % 0.5 Basophils % 0.6 Nucleated RBC % (0.0-0.3) % 0.0 Absolute Neutrophils (1.2-6.7) 10^3/uL 7.96 H Absolute Lymphocytes (1.2-3.4) 10^3/uL 3.32 Absolute Monocytes (0.1-0.8) 10^3/uL 1.07 H Absolute Eosinophils (0.0-0.7) 10^3/uL 0.06 Absolute Basophils (0.0-0.2) 10^3/uL 0.08 Sodium (136-145) mmol/L 131 L Potassium (3.5-5.1) mmol/L 3.7 Chloride (98-107) mmol/L 95 L Carbon Dioxide (21.0-32.0) mmol/L 26.0 Anion Gap (3-11) mmol/L 10.0 BUN (7-18) mg/dL 14 Creatinine (0.70-1.30) mg/dL 1.1 Est GFR (CKD-EPI 2020) (mL/min/1.73m2) 75.43 Glucose (74-106) mg/dL 108 H Calcium (8.5-10.1) mg/dL 9.2 Total Bilirubin (0.2-1.0) mg/dL 1.2 H AST (15-37) U/L 27 ALT (16-63) U/L 44 Alkaline Phosphatase (46-116) U/L 86 Total Protein (6.4-8.2) g/dL 8.0 Albumin (3.4-5.0) g/dL 4.0 PAWSS Have you Been Recently Intoxicated or Drunk Within the Last 30 days?: No Have you Ever Experienced Previous Episodes of Alcohol Withdrawal?: No Have you ever Experienced Withdrawal Seizures?: No Have you ever Experienced Delirium Tremens(DT)s?: No Have you ever undergone Alcohol Rehabilitation Treatment (i.e, inpt ot outpatient treatment programs)?: No Have you ever Experienced Blackouts?: No Have you ever Combined Alcohol with other Downers within the last 90 days?: No Have you ever Combined Alcohol with any other Substance of Abuse during the last 90 days?: No Result: 0
[2022-04-04] MEDS: Normal Saline - Diluent 50 ML VIAL IJ (18:54)
[2022-04-04] MEDS: Omnipaque 350 MG/ML 100 ML BTL IJ (18:56)
[2022-04-04] MEDS: Normal Saline Flush 10 ML SYR IVP ×2 (18:56→23:09)
--- NOTE | 2022-04-04 19:18 | DI.VRAD_ITS ---
Addendum created by Saadia Jacobo MD on 04/04/2022 7:25:21 PM EST: THIS REPORT CONTAINS FINDINGS THAT MAY BE CRITICAL TO PATIENT CARE. The pertinent findings were verbally communicated via telephone conference with Ady Langley at 19:25 EST on 04/04/2022. The findings were acknowledged and understood. Initial report created on 04/04/2022 7:18:00 PM EST: PROCEDURE INFORMATION: Exam: CT Head Without Contrast Exam date and time: 04/04/2022 18:53 Age: 62 years old Clinical indication: Stroke-like symptoms; Dizziness/giddiness and headache and other: Dizziness, falls, visual changes TECHNIQUE: Imaging protocol: Computed tomography of the head without contrast. Other technique: STROKE PROTOCOL was implemented. COMPARISON: CT BRAIN NECK CTA 03/20/2022 13:44 FINDINGS: Brain: Edema in right parietal and occipital lobes. No acute intracranial hemorrhage. No midline shift. Cerebral ventricles: No ventriculomegaly. Paranasal sinuses: No acute sinusitis. Mastoid air cells: No mastoid effusion. Bones/joints: No acute fracture. Soft tissues: No suspicious lesions. IMPRESSION: Acute to subacute appearing infarct, right parietal and occipital lobes. MCA distribution consistent with findings below ASSESSMENT: ASPECTS (Annette Stroke Program Early CT Score) is 8 PROCEDURE INFORMATION: Exam: CTA Head With Contrast, Arteriography Exam date and time: 04/04/2022 18:53 Age: 62 years old Clinical indication: Stroke-like symptoms; Dizziness/giddiness and headache and other: Dizziness, falls, visual changes TECHNIQUE: Imaging protocol: Computed tomographic angiography of the head with contrast. Exam focused on the arteries. 3D rendering (Not supervised by radiologist): MIP and/or 3D reconstructed images were created by the technologist. Contrast material: OMNIPAQUE 350; Contrast volume: 85 ml; Contrast route: INTRAVENOUS (IV); COMPARISON: CT BRAIN NECK CTA 03/20/2022 13:44 FINDINGS: ANTERIOR CIRCULATION: Right internal carotid artery: Intracranial segment is patent with no significant stenosis. No aneurysm. Right middle cerebral artery: Occlusion of right parietal branches of the MCA, M2 segment and distally. There is some collateral flow in distal small branches. M1 segment is patent. Right anterior cerebral artery: No occlusion or significant stenosis. No aneurysm. Left internal carotid artery: Intracranial segment is patent with no significant stenosis. No aneurysm. Left middle cerebral artery: No occlusion or significant stenosis. No aneurysm. Left anterior cerebral artery: No occlusion or significant stenosis. No aneurysm. POSTERIOR CIRCULATION: Right vertebral artery: No occlusion or significant stenosis. No aneurysm. Left vertebral artery: Congenitally diminutive left vertebral artery predominantly terminates in the PICA. Basilar artery: No occlusion or significant stenosis. No aneurysm. Right posterior cerebral artery: No occlusion or significant stenosis. No aneurysm. Left posterior cerebral artery: No occlusion or significant stenosis. No aneurysm. Brain: Some hyperemia around the periphery of the right MCA distribution infarct. Cerebral ventricles: No ventriculomegaly. Bones/joints: No acute fracture. Soft tissues: No suspicious lesions. IMPRESSION: Occlusion of right parietal branches of the MCA, M2 segment and distally. PROCEDURE INFORMATION: Exam: CTA Neck With Contrast Exam date and time: 04/04/2022 18:53 Age: 62 years old Clinical indication: Stroke-like symptoms; Dizziness/giddiness and headache and other: Dizziness, falls, visual changes TECHNIQUE: Imaging protocol: Computed tomographic angiography of the neck with contrast. 3D rendering (Not supervised by radiologist): MIP and/or 3D reconstructed images were created by the technologist. Contrast material: OMNIPAQUE 350; Contrast volume: 85 ml; Contrast route: INTRAVENOUS (IV); COMPARISON: CT BRAIN NECK CTA 03/20/2022 13:44 FINDINGS: Right common carotid artery: No significant stenosis. No dissection or occlusion. Right internal carotid artery: Right ICA atherosclerosis with no hemodynamically significant stenosis. No dissection. Right external carotid artery: No occlusion or significant stenosis. Left common carotid artery: No significant stenosis. No dissection or occlusion. Left internal carotid artery: Mild left ICA atherosclerosis with no hemodynamically significant stenosis. No dissection. Left external carotid artery: No occlusion or significant stenosis. Right vertebral artery: No significant stenosis. No dissection or occlusion. Left vertebral artery: Congenitally diminutive left vertebral artery without significant stenosis. No dissection. Bones/joints: No acute fracture. Lungs: Mild pulmonary emphysema. IMPRESSION: No acute arterial pathology. Patent carotid and vertebral system bilaterally. Acute. Dictated and Authenticated by: Saadia Jacobo MD. Ordering:DIMITRI Garsia MD
[2022-04-04] MEDS: Normal Saline 1,000 ML 125 ML IV (20:20)
[2022-04-04 20:27] LABS: Bilirubin Negative (Negative); Blood Negative (Negative); Clarity Clear (Clear); Glucose Negative (Negative); Ketones Negative (Negative); Leukocyte Esterase Negative (Negative); Nitrite Negative (Negative); Urobilinogen 0.2 EU/dL (Up TO 0.2)
[2022-04-04 20:28] LABS: Source Nasal/Nares
[2022-04-04 20:33] LABS: *AMPHETAMINES SCREEN URINE Negative (Negative); *BARBITURATES SCREEN URINE Negative (Negative); *BENZODIAZEPINES SCREEN URINE Negative (Negative); Cannabinoids THC Positive (Negative); Cocaine Screen,Urine Negative (Negative); METHADONE URINE SCREEN Negative (Negative); OPIATES URINE SCREEN Negative (Negative)
[2022-04-04 20:35] LABS: Tricyclic Antidepressants Negative (Negative)
[2022-04-04] MEDS: ACETAMINOPHEN 1,000 MG/100 ML BTL 400 MG (20:50)
[2022-04-04 20:59] LABS: COVID-19 PCR Negative (Negative)
--- NOTE | 2022-04-04 21:32 | HPE_ITS ---
Date of service: 04/04/22 Time of Service: 21:33 Assessment and Plan Assessment and plan (1) Acute right arterial ischemic stroke, middle cerebral artery (MCA): Start date: 04/04/22 Status: Acute Assessment and plan: This is 62-year-old gentleman who is a very poor historian but had visual changes earlier this month and now more acute symptoms with headache presented to the ED with imaging revealing subacute right MCA distribution CVA which appears to be mostly affecting the visual center. CTA of the head and neck and CT revealed these findings with no other large vessel occlusions noted. Patient will have loading dose of Plavix with aspirin continue daily along with atorvastatin advance and will hold antihypertensives with permissive hypertension. Further imaging with MRI of the head and echocardiogram bubble study. He is a full code. (2) Diplopia: Status: Acute Assessment and plan: Patient presented with diplopia earlier March but this is actually more left hemianopsia consistent with right CVA. This does not appear to be in endorgan disease and ophthalmological evaluation which was done prior to admission if done should be evaluated. Otherwise patient should see private banker or radio operator ground chronically. Certainly neurology consultation will be ongoing. (3) Cocaine use: Status: Chronic Assessment and plan: Polysubstance abuse most likely could increase vasospasm the patient does have risk for atherosclerotic thrombotic disease. Echocardiogram will be done to rule out embolic phenomena though patient's heart rhythm appears to be normal at this time. Patient does have a history of polysubstance use. (4) HTN (hypertension): Status: Chronic Assessment and plan: Patient will have permissive hypertension now status post subacute CVA. Hold outpatient antihypertensives for now. Consider beta-angelito if needed. (5) Hyperlipidemia: Status: Chronic Assessment and plan: Patient already on low-dose atorvastatin which will be maximized to 80 mg daily. (6) Hyponatremia: Status: Acute Assessment and plan: Fluid restriction and if needed gentle IV hydration this apparently is a recurrent problem and not severe. It could be secondary to his chronic alcohol use. (7) Alcohol consumption binge drinking: Assessment and plan: Patient should be advised to not drink alcohol with his multiple issues. Progn osis poor for change since he is still manifesting polysubstance abuse. He does appear to self treat. Avoid narcotics for pain management chronically. History of Present Illness History of Present Illness Chief Complaint: Headache with vision changes Narrative: This is a 62-year-old male patient who has a history of polysubstance abuse and is disabled from back and neck pain who is a very poor historian presenting to the ED with frontal headache and a change in his vision. He had been to the ED earlier this month with visual changes and was seen by his PCP and follow-up for endorgan eye problems which is vague as to how he was treated. He did have more clear left visual field loss by exam in the ED with no motor symptoms and CTA of the head and neck as well as CT of the head revealed a subacute right cerebral infarction involving the right MCA. He continues to complain of headache but is vague and this is mostly over his sinuses and states that he feels that this might hit him in the back of her head at times though his pain is mostly over the front of his head. He does have occasional discomfort over his right posterior scalp. When he reported to the ED he said his headache began about 1 day ago but it was longer than 24 hours but is that he did have visual changes earlier this month with an ED visit. Teleneurology consultation did recommend aspirin and Plavix with maximizing statin and further imaging with the usual MRI of the head and echocardiogram with bubble study. Patient was previously only on baby aspirin daily. Review of Systems Narrative: 13 point review of systems otherwise unrevealing or stable. Patient is a very poor historian and describes his headache as unchanging from his beginning prior to presentation to the ED. [facility] All Active Problems (Updated 04/05/22 @ 08:25 by Yasmani Christianson) Hyponatremia (Acute) Hyperlipidemia (Chronic) HTN (hypertension) (Chronic) Acute right arterial ischemic stroke, middle cerebral artery (MCA) (Acute) CVA (cerebral vascular accident) (Chronic) Diplopia (Acute) Nasal turbinate hypertrophy (Acute) Nasal obstruction (Acute) Allergic rhinitis due to allergen (Acute) Deviated nasal septum (Acute) Nasal polyp (Acute) Sensory hearing loss, unilateral (Acute) Environmental allergies (Acute) Smoker (Acute) Cocaine use (Chronic) Thrombotic stroke involving cerebellar artery (Acute) Discharge planning issues (Acute) DVT prophylaxis (Acute) Upper respiratory infection (Acute) Dizziness (Acute) Vertigo (Acute) S/P left inguinal hernia repair (Acute) 12/10/18, Dr Shanice Benavidez, [facility] Left inguinal hernia (Acute) Right rotator cuff tendonitis (Acute) Medical History (Updated 04/05/22 @ 08:25 by Yasmani Christianson) Alcohol consumption binge drinking Chronic anxiety Chronic low back pain Degenerative joint disease Depression Erectile dysfunction Hamstring tendinitis hypertension,borderline Onychomycosis Prediabetes Tobacco dependency Surgical History Colonoscopy - MAC (12/01/17) eye surgery trauma as a child H/O right inguinal hernia repair Family History Mother , cancer Personal history of malignant neoplasm Father Stroke Hypertension Social History Smoking/Tobacco Use Status: Current every day Tobacco Type: cigarettes Tobacco: How many years used: 20 Quit status: not considering quitting Second Hand Exposure: Yes Smoking risk assessment performed?: Yes Alcohol Intake: current Alcohol Intake frequency: 0-2 drinks per day Alcohol type: beer Drug use: Daily Substance use type: marijuana Seatbelt use: always Do you feel safe at home: Yes Do you feel safe in your relationship?: Yes Meds Allergies and Home Medications Allergies Allergy/AdvReac Type Severity Reaction Status Date / Time No Known Allergies Allergy Verified 04/04/22 17:37 Home Medications Medication Instructions Recorded Confirmed Type cetirizine 10 mg chewable tablet 10 mg PO DAILY 09/26/17 04/04/22 History sildenafil 50 mg tablet (Viagra) 50 mg PO PRN 09/26/17 04/04/22 History albuterol sulfate 90 mcg/actuation 2 puff inhalation QID 12/03/18 04/04/22 Hi story aerosol inhaler lisinopril 10 1 tab PO DAILY 03/09/19 04/04/22 History mg-hydrochlorothiazide 12.5 mg tablet aspirin 81 mg chewable tablet 81 mg PO DAILY #30 tabs 03/12/19 04/04/22 Rx atorvastatin 20 mg tablet 20 mg PO QHS #30 tabs 04/20/19 04/04/22 Rx fluticasone propionate 50 1 spray intranasal DAILY PRN nasal 04/20/19 04/04/22 History mcg/actuation nasal congestion spray,suspension (Flonase Allergy Relief) Exam Narrative Exam Narrative: General: Patient appears appropriate for age, unkempt, darkly tanned and very animated with his discussion with pressured speech. He is slightly anxious but intermittently has outburst. This appeared to be his baseline. He is alert and oriented least to person and place. He is in no acute distress. He is mesomorphic except for some slight truncal obesity over the abdomen HEENT: Normocephalic, eyes with pupils equal and react light symmetrically, extraocular movement intact and sclera anicteric. Oropharynx with dry mucosa. Neck: Supple without JVD or palpable carotid thrills. Back: Normal posture without CVA tenderness. Lungs: Fair aeration and clear to auscultation percussion. Heart: Regular rate and rhythm with no appreciable murmur or gallop. Abdomen: Obese contour, soft and nontender to palpation with no palpable hepatosplenomegaly. Bowel sounds positive all quadrants. Genitalia/rectal: Exam deferred. Extremities: Without clubbing, cyanosis or pitting edema. Fair capillary refill. Skin: Darkly tanned, warm and dry. Neuro: Cranial nerves II through XII grossly intact with visual field testing positive for left hemianopsia consistent with his imaging findings of right CVA. No focal motor deficits and no tremor. DTRs of physiologic and symmetrical. No Babinski's. Several testing in bed grossly intact. Psych: Anxious with almost manic mood and being very animated. No abnormal thought processes manifested. Remote and recent memory grossly intact. Results Imaging Imaging Studies: Exam: CT Head Without Contrast Exam date and time: 04/04/2022 18:53 Age: 62 years old Clinical indication: Stroke-like symptoms; Dizziness/giddiness and headache and other: Dizziness, falls, visual changes TECHNIQUE: Imaging protocol: Computed tomography of the head without contrast. Other technique: STROKE PROTOCOL was implemented. COMPARISON: CT BRAIN NECK CTA 03/20/2022 13:44 FINDINGS: Brain: Edema in right parietal and occipital lobes. No acute intracranial hemorrhage. No midline shift. Cerebral ventricles: No ventriculomegaly. Paranasal sinuses: No acute sinusitis. Mastoid air cells: No mastoid effusion. Bones/joints: No acute fracture. Soft tissues: No suspicious lesions.? IMPRESSION: Acute to subacute appearing infarct, right parietal and occipital lobes.? MCA distribution consistent with findings below ASSESSMENT: ASPECTS (Annette Stroke Program Early CT Score) is 8 PROCEDURE INFORMATION: Exam: CTA Head With Contrast, Arteriography Exam date and time: 04/04/2022 18:53 Age: 62 years old Clinical indication: Stroke-like symptoms; Dizziness/giddiness and headache and other: Dizziness, falls, visual changes TECHNIQUE: Imaging protocol: Computed tomographic angiography of the head with contrast. Exam focused on the arteries. 3D rendering (Not supervised by radiologist): MIP and/or 3D reconstructed images were created by the technologist. Contrast material: OMNIPAQUE 350; Contrast volume: 85 ml; Contrast route: INTRAVENOUS (IV);? COMPARISON: CT BRAIN NECK CTA 03/20/2022 13:44 FINDINGS: ANTERIOR CIRCULATION: Right internal carotid artery: Intracranial segment is patent with no significant stenosis. No aneurysm. Right middle cerebral artery: Occlusion of right parietal branches of the MCA, M2 segment and distally.? There is some collateral flow in distal small branches. M1 segment is patent. Right anterior cerebral artery: No occlusion or significant stenosis. No aneurysm.? Left internal carotid artery: Intracranial segment is patent with no significant stenosis. No aneurysm. Left middle cerebral artery: No occlusion or significant stenosis. No aneurysm. ? Left anterior cerebral artery: No occlusion or significant stenosis. No aneurysm.? POSTERIOR CIRCULATION: Right vertebral artery: No occlusion or significant stenosis. No aneurysm.? Left vertebral artery: Congenitally diminutive left vertebral artery predominantly terminates in the PICA. Basilar artery: No occlusion or significant stenosis. No aneurysm. Right posterior cerebral artery: No occlusion or significant stenosis. No aneurysm.? Left posterior cerebral artery: No occlusion or significant stenosis. No aneurysm.? Brain:? Some hyperemia around the periphery of the right MCA distribution infarct. Cerebral ventricles: No ventriculomegaly. Bones/joints: No acute fracture. Soft tissues: No suspicious lesions.? IMPRESSION: Occlusion of right parietal branches of the MCA, M2 segment and distally. PROCEDURE INFORMATION: Exam: CTA Neck With Contrast Exam date and time: 04/04/2022 18:53 Age: 62 years old Clinical indication: Stroke-like symptoms; Dizziness/giddiness and headache and other: Dizziness, falls, visual changes TECHNIQUE: Imaging protocol: Computed tomographic angiography of the neck with contrast. 3D rendering (Not supervised by radiologist): MIP and/or 3D reconstructed images were created by the technologist. Contrast material: OMNIPAQUE 350; Contrast volume: 85 ml; Contrast route: INTRAVENOUS (IV);? COMPARISON: CT BRAIN NECK CTA 03/20/2022 13:44 FINDINGS: Right common carotid artery: No significant stenosis. No dissection or occlusion. Right internal carotid artery: Right ICA atherosclerosis with no hemodynamically significant stenosis. No dissection. Right external carotid artery: No occlusion or significant stenosis. Left common carotid artery: No significant stenosis. No dissection or occlusion. Left internal carotid artery: Mild left ICA atherosclerosis with no hemodynamically significant stenosis. No dissection. Left external carotid artery: No occlusion or significant stenosis. Right vertebral artery: No significant stenosis. No dissection or occlusion. Left vertebral artery: Congenitally diminutive left vertebral artery without significant stenosis. No dissection. Bones/joints: No acute fracture. Lungs: Mild pulmonary emphysema. IMPRESSION: No acute arterial pathology. Patent carotid and vertebral system bilaterally. Acute.? Labs Result diagrams: 04/05/22 05:40 04/05/22 05:40 Labs: Laboratory Results - last 24 hr 04/04/22 04/04/22 04/04/22 17:40 17:40 19:54 WBC 12.53 H RBC 4.85 Hgb 13.8 Hct 40.4 MCV 83 MCH 28.5 MCHC 34.2 RDW 13.4 Plt Count 297 MPV 9.8 Immature Gran % 0.4 Neutrophils % 63.5 Lymphocytes % 26.5 Monocytes % 8.5 Eosinophils % 0.5 Basophils % 0.6 Nucleated RBC % 0.0 Absolute Neutrophils 7.96 H Absolute Lymphocytes 3.32 Absolute Monocytes 1.07 H Absolute Eosinophils 0.06 Absolute Basophils 0.08 Sodium 131 L Potassium 3.7 Chloride 95 L Carbon Dioxide 26.0 Anion Gap 10.0 BUN 14 Creatinine 1.1 Est GFR (CKD-EPI 2020) 75.43 Glucose 108 H Calcium 9.2 Total Bilirubin 1.2 H AST 27 ALT 44 Alkaline Phosphatase 86 Total Protein 8.0 Albumin 4.0 Urine Color Urine Clarity Urine pH Ur Specific [place] Urine Protein Urine Ketones Urine Blood Urine Nitrite Urine Bilirubin Urine Urobilinogen Ur Leukocyte Esterase Urine Glucose Urine Opiates Screen Negative Urine Methadone Screen Negative Ur Barbiturates Screen Negative Ur Tricyclics Screen Negative Ur Amphetamines Screen Negative U Benzodiazepines Scrn Negative Urine Cocaine Screen Negative Ur THC Screen Positive A COVID-19 Source SARS-CoV-2 (PCR) 04/04/22 04/04/22 19:54 20:25 WBC RBC Hgb Hct MCV MCH MCHC RDW Plt Count MPV Immature Gran % Neutrophils % Lymphocytes % Monocytes % Eosinophils % Basophils % Nucleated RBC % Absolute Neutrophils Absolute Lymphocytes Absolute Monocytes Absolute Eosinophils Absolute Basophils Sodium Potassium Chloride Carbon Dioxide Anion Gap BUN Creatinine Est GFR (CKD-EPI 2020) Glucose Calcium Total Bilirubin AST ALT Alkaline Phosphatase Total Protein Albumin Urine Color Yellow Urine Clarity Clear Urine pH 7.0 Ur Specific [place] 1.020 Urine Protein Negative Urine Ketones Negative Urine Blood Negative Urine Nitrite Negative Urine Bilirubin Negative Urine Urobilinogen 0.2 Ur Leukocyte Esterase Negative Urine Glucose Negative Urine Opiates Screen Urine Methadone Screen Ur Barbiturates Screen Ur Tricyclics Screen Ur Amphetamines Screen U Benzodiazepines Scrn Urine Cocaine Screen Ur THC Screen COVID-19 Source Nasal/Nares SARS-CoV-2 (PCR) Negative Last Vital Signs Temp 36.4 C L 04/04/22 20:20 Pulse 69 04/04/22 20:20 Resp 14 04/04/22 20:20 BP 144/95 H 04/04/22 20:20 Pulse Ox 96 04/04/22 20:20 PAWSS Have you Been Recently Intoxicated or Drunk Within the Last 30 days?: No Have you Ever Experienced Previous Episodes of Alcohol Withdrawal?: No Have you ever Experienced Withdrawal Seizures?: No Have you ever Experienced Delirium Tremens(DT)s?: No Have you ever undergone Alcohol Rehabilitation Treatment (i.e, inpt ot outpatient treatment programs)?: No Have you ever Experienced Blackouts?: No Have you ever Combined Alcohol with other Downers within the last 90 days?: No Have you ever Combined Alcohol with any other Substance of Abuse during the last 90 days?: No Result: 0
--- NOTE | 2022-04-04 21:39 | W.EDPROG ---
Date of service: 04/04/22 Time of Service: 21:39 Medical Decision Making Received signout from Dr. Pancho Yuan. Please see his note regarding details of the initial presentation, exam and plan of care. Images reviewed and case discussed with on-call neurology at [facility]. No indication for further emergent work-up. Patient to continue aspirin 81 mg daily, add Plavix 75 milligrams, add statin to his regimen. They recommend continuing with local admission and further stroke work-up. Patient remained stable. Sign Out No Sign Out Sign Out Data: Sign Out Comment: subacute MCA infarct awaiting [facility] neuro consult Last updated by Ady Langley MD at 04/04/22 19:59 Discharge Plan Disposition Patient Disposition: Admit to [facility] Condition: Stable Discharge Details Clinical Impression: Acute right MCA stroke Admit Date/Time: 04/04/22 21:35 Admit Provider: Yasmani Christianson Attending Provider: Yasmani Christianson Primary Care Provider: Jin Payan ED Provider: Harish Oconnor
[2022-04-04] MEDS: Clopidogrel 75 MG TAB PO (21:54)
--- NOTE | 2022-04-04 22:00 | RT.EKG_ITS ---
APPROVED REPORT Exam: Resting ECG Reason for Exam: blurry vision Patient Location: E HR:67 bpm ECG Measurements Heart Rate 67 AXIS TX 136 P 55 QRSd 108 QRS -41 QT 418 T 17 QTc 442 Conclusion Sinus rhythm...normal P axis, V-rate 60- 99 Left axis deviation...QRS axis (-30,-90)
[2022-04-04 22:22] LABS: Prothrombin Time 9.9 sec (9.3-11.0)
[2022-04-04 22:28] LABS: Magnesium 1.9 mg/dL (1.8-2.4); TSH (W/Ref FT4) 0.55 uIU/mL (0.36-3.74)
[2022-04-04] MEDS: Atorvastatin 20 MG TAB 80 MG PO (23:07)
[2022-04-05] VITALS (12 sets, daily range): BP systolic 101–137; BP diastolic 70–90; PULSE 59–88; RESP 16–18; TEMP 36.6–38.1; O2SAT 95–98
--- NOTE | 2022-04-05 | DI.US_ITS ---
Exam(s) US CAROTID EXAM: US CAROTID CLINICAL HISTORY: CVA TECHNIQUE: Ultrasound performed using standard protocol. COMPARISON: No exams were available for comparison FINDINGS: Duplex evaluation of the carotid circulation was performed according to the usual protocol. There is mild visible atheromatous plaque on 2D evaluation in the carotid bulb/bifurcation bilaterally. Flow velocities appear within normal limits throughout the common and internal carotid arteries bilateral ly. There is bilateral antegrade vertebral flow. IMPRESSION: No evidence of a hemodynamically significant carotid stenosis. DATA REPOSITORY:
[2022-04-05] MEDS: Acetaminophen 325 MG TAB PO ×3 (03:35→16:26)
[2022-04-05 06:21] LABS: HCT 36.1 % (40.0-50.0); HGB 12.1 g/dL (13.5-17.5); MCH 27.9 pg (27.0-33.0); MCHC 33.5 % (32.0-36.0); MCV 83 fL (80-95); MPV 9.6 fL (8.0-11.0); Platelet Count 262 10^3/uL (130-400); RBC 4.33 10^6/uL (4.36-5.78); RDW 13.3 % (11.8-14.1); RDW-SD 40.8 fL; WBC 8.78 10^3/uL (4.4-10.8)
[2022-04-05 06:49] LABS: ALT 35 U/L (16-63); AST 26 U/L (15-37); Albumin 3.2 g/dL (3.4-5.0); Alkaline Phosphatase 69 U/L (46-116); Anion Gap 6.8 mmol/L (3-11); BUN 12 mg/dL (7-18); Bilirubin, Total 1.2 mg/dL (0.2-1.0); CO2 25.2 mmol/L (21.0-32.0); CREATININE 1.2 mg/dL (0.70-1.30); Calcium 8.6 mg/dL (8.5-10.1); Chloride 97 mmol/L (98-107); Estimated GFR 67.95 (mL/min/1.73m2); Glucose 134 mg/dL (74-106); Potassium 3.3 mmol/L (3.5-5.1); Sodium 129 mmol/L (136-145); Total Protein 6.7 g/dL (6.4-8.2)
[2022-04-05 08:31] LABS: Lab Add On Test DONE
[2022-04-05] MEDS: Potassium Chloride Liquid 20 MEQ PKT 40 MEQ PO (08:35)
[2022-04-05] MEDS: Aspirin 81 MG CHEW PO ×2 (08:36→08:37)
[2022-04-05] MEDS: Cetirizine 10 MG TAB PO (08:37)
[2022-04-05] MEDS: Clopidogrel 75 MG TAB 225 MG PO (08:38)
[2022-04-05] MEDS: Normal Saline Flush 10 ML SYR IVP ×2 (08:39→22:10)
[2022-04-05 08:45] LABS: Magnesium 1.8 mg/dL (1.8-2.4)
--- NOTE | 2022-04-05 09:17 | PDOC.CMIN ---
- If Service Date Differs Date of service: 04/05/22 Time of Service: 09:17 Care Management Initial Assess REASON FOR HOSPITALIZATION:: Acute right arterial ischemic stroke PAST MEDICAL HISTORY/PAST SURGICAL HISTORY:: All Active Problems (Updated 04/05/22 @ 08:25 by Yasmani Christianson). Hyponatremia (Acute). Hyperlipidemia (Chronic). HTN (hypertension) (Chronic). Acute right arterial ischemic stroke, middle cerebral artery (MCA) (Acute). CVA (cerebral vascular accident) (Chronic). Diplopia (Acute). Nasal turbinate hypertrophy (Acute). Nasal obstruction (Acute). Allergic rhinitis due to allergen (Acute). Deviated nasal septum (Acute). Nasal polyp (Acute). Sensory hearing loss, unilateral (Acute). Environmental allergies (Acute). Smoker (Acute). Cocaine use (Chronic). Thrombotic stroke involving cerebellar artery (Acute). Discharge planning issues (Acute). DVT prophylaxis (Acute). Upper respiratory infection (Acute). Dizziness (Acute). Vertigo (Acute). S/P left inguinal hernia repair (Acute). 12/10/18, Dr Shanice Benavidez, [facility]. Left inguinal hernia (Acute). Right rotator cuff tendonitis (Acute). Medical History (Updated 04/05/22 @ 08:25 by Yasmani Christianson). Alcohol consumption binge drinking. Chronic anxiety. Chronic low back pain. Degenerative joint disease. Depression. Erectile dysfunction. Hamstring tendinitis. hypertension,borderline. Onychomycosis. Prediabetes. Tobacco dependency. Surgical History . Colonoscopy - MAC (12/01/17). eye surgery. trauma as a child. H/O right inguinal hernia repair. Family History . Mother , cancer. Personal history of malignant neoplasm. Father . Stroke. Hypertension PREVIOUS FUNCTIONAL STATUS/SOCIAL/FAMILY SUPPORTS:: Heaven lives alone in an apartment in [place]. He has 5 children and 5 grandchildren. Most of his children live locally and are supportive. He is on disability and does not work. Heaven receives [employer] and fuel assistance but no other services. He is independent at baseline. CURRENT FUNCTIONAL STATUS:: Heaven was sitting up in bed when met with him. He was polite and agreeable to conversation. Heaven talked about his family and about the symptoms for which he was admitted. He seems to have a good unserstanding about his disease process. During the conversation, Heaven's focus wandered and he lost track of the topic at hand several times, laughing frequently and inappropriately. ADVANCE DIRECTIVES:: none on file Has patient been provided with info about the portal/API?: Yes Did the patient sign up for the portal?: No CODE STATUS:: Full Code INSURANCE COVERAGE / FINANCIAL ISSUES:: Medicare A&B CURRENT HOME/COMMUNITY SERVICES/EQUIPMENT:: food stamps and fuel assistance PRIMARY CARE PHYSICIAN:: Jin Payan POTENTIAL DISCHARGE NEEDS:: follow up with PCP and plan of care PATIENT/FAMILY EDUCATION NEEDS:: Review of discharge instructions, limitations, activity, follow up plan, Ask Me Three TRANSPORTATION:: to be determined by disposition PLAN:: Heaven mohamud be discharged home with no new services. He will follow up with his PCP and plan of care and transport with family.CM will support Sherie and assess for ongoing discharge concerns.
--- NOTE | 2022-04-05 10:03 | OTIE_ITS ---
Occupational Therapy Notes Inpatient Occupational Therapy Evaluation Date: 04/05/22 Referring Doctor: Dr. Christianson OT Orders: Non Urgent- Safety Consult for D/C Precautions: Fall, standard, Full PATIENT PROFILE/ADMITTING DIAGNOSIS: Pt is a 62 year old male who was admitted through the ED for the following dx of subacute (R) MCA distribution CVA, alcohol binge drinking, hyponatremia, hyperlipidemia, HTN, diplopia, hx of cocaine use. Pts symptoms are directly affecting his visual input at this time. Past Medical History: All Active Problems?(Updated 04/05/22 @ 08:25 by Yasmani Christianson) Hyponatremia (Acute) Hyperlipidemia (Chronic) HTN (hypertension) (Chronic) Acute right arterial ischemic stroke, middle cerebral artery (MCA) (Acute) CVA (cerebral vascular accident) (Chronic) Diplopia (Acute) Nasal turbinate hypertrophy (Acute) Nasal obstruction (Acute) Allergic rhinitis due to allergen (Acute) Deviated nasal septum (Acute) Nasal polyp (Acute) Sensory hearing loss, unilateral (Acute) Environmental allergies (Acute) Smoker (Acute) Cocaine use (Chronic) Thrombotic stroke involving cerebellar artery (Acute) Discharge planning issues (Acute) DVT prophylaxis (Acute) Upper respiratory infection (Acute) Dizziness (Acute) Vertigo (Acute) S/P left inguinal hernia repair (Acute) 12/10/18, [facility]) Right rotator cuff tendonitis (Acute) Medical History?(Updated 04/05/22 @ 08:25 by Yasmani Christianson) Alcohol consumption binge drinking Chronic anxiety Chronic low back pain Degenerative joint disease Depression Erectile dysfunction Hamstring tendinitis hypertension,borderline Onychomycosis Prediabetes Tobacco dependency Surgical History? Colonoscopy - MAC (12/01/17) eye surgery trauma as a childH/O right inguinal hernia repair Social History/Home Situation: Pt states that he lives alone. He is not able to provide information on his baseline level of function except that he does drive and that he drove himself to the ED with only being able to see out of 1 eye. He states that he cannot see anything white at this time or anything black becomes a blur. He states that this is bothersome to himwith his ADL/IADL routines. Equipment owned/DME: unable to assess due to pts congitive function at this time. SUBJECTIVE: Pt was lying in bed when OT arrived. He is unable to have a complete conversation without going off track about other things. He has visual deficits and cannot seen anything white or black and states that he has a headache in his (R) side of his head which nursing is aware of. 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 Daily Activity Inpatient Short Form: Raw score: 12 INFORMED CONSENT/EDUCATION: Pt instructed in purpose of OT Consult and plan of care. ASSESSMENT: Patient is a 62-year-old male referred to occupational therapy services with diagnosis of subacute (R) MCA distribution CVA, alcohol binge drinking, hyponatremia, hyperlipidemia, HTN, diplopia, hx of cocaine use. Pts symptoms are directly affecting his visual input at this time. Patient presents with clinical signs and symptoms consistent with dx, as demonstrated by the following impairment level findings/functional limitations: Impairments in ADL/IADL and leisure activities, decreased strength, decreased functional activity tolerance, decreased functional mobility required for ADL performance due to visual deficit, decreased cognitive awareness, decreased gross and fine motor control. Patient is assessed as a high 16365 complexity based on the following: History: see above Examination: see functional limitations as noted above Presentation: evolving Decision Making: High complexity GOALS Goals x1 week 1. Transfers (I) 2. Dressing sitting in chair (I) UE//LE 3. Bathing standing at sink (I) 4. Toileting on toilet (I) 5. (I)Eating PLAN OF CARE/TREATMENT PLAN: 1x/day, 5 days/ week x 1week Initiate Occupational Therapy Services for bathing, dressing, grooming, toileting, eating, transfer training. DISCHARGE RECOMMENDATIONS Based on pts current visual deficit, cognitive deficit and (L) UE neglect, OT recommends that pt go to SNF for continued rehabilitation as he lives alone and is not able to perform his ADLs without vc at this time versus [facility] for stroke rehabilitation program. TREATMENT TIME/MINUTES/CODES 09743, [id number], 30 minutes [facility]
--- NOTE | 2022-04-05 10:35 | DI.MRI_ITS ---
Exam(s) MR BRAIN WO EXAM: MR BRAIN WO CLINICAL HISTORY: Right CVA TECHNIQUE: Multiplanar multisequence MRI of the brain was performed. COMPARISON: No exams were available for comparison FINDINGS: The ventricular system is normal in appearance. There is abnormal signal seen all pulse sequences in the right parietal and occipital lobes with the appearance suggestive of edema secondary to acute infarction, confirmed on diffusion-weighted imaging period mild nonspecific periventricular and subcortical areas of signal abnormality are also seen co nsistent with microvascular ischemic changes.. The orbital and temporal bone structures appear intact as does the pituitary. Diffusion weighted imaging shows areas of diffusion restriction with matching ADC map signal loss in right parietal and occipital lobes. The findings are consistent with acute to subacute infarction pe riod Susceptibility weighted imaging shows no evidence of intracranial hemorrhage. There is normal flow void in the [place] vasculature. IMPRESSION: The appearance is consistent with acute to subacute infarctions, nonhemorrhagic, involving portions o f right parietal and occipital lobes . DATA REPOSITORY:
--- NOTE | 2022-04-05 13:26 | PT.INIE ---
Date of service: 04/05/22 Time of Service: 13:26 PT Notes Visit Reasons: Subacute Right MCA CVA, Hypertension, Cocaine Use Physical Therapy Inpatient Initial Evaluation Date: 04/05/2022 Referring Doctor: Yasmani Christianson MD PT Orders: PT CONSULT: Limited ability Precautions: Fall. Standard. Limited visual acuity on the left side. Patient Profile/Admitting Diagnosis: Krishna is a 62-year-old male with history of chronic back and neck pain who presented to the ED on 04/04/2022 due to complaints of started 1 day prior to admission which has been accompanied by changes in vision. Patient is diagnosed with acute right MCA CVA, diplopia versus left hemianopsia, cocaine use, hypertension, hyperlipidemia, hyponatremia, and EtOH abuse. PMHX: All Active Problems?(Updated 04/05/22 @ 08:25 by Yasmani Christianson) Hyponatremia (Acute) Hyperlipidemia (Chronic) HTN (hypertension) (Chronic) Acute right arterial ischemic stroke, middle cerebral artery (MCA) (Acute) CVA (cerebral vascular accident) (Chronic) Diplopia (Acute) Nasal turbinate hypertrophy (Acute) Nasal obstruction (Acute) Allergic rhinitis due to allergen (Acute) Deviated nasal septum (Acute) Nasal polyp (Acute) Sensory hearing loss, unilateral (Acute) Environmental allergies (Acute) Smoker (Acute) Cocaine use (Chronic) Thrombotic stroke involving cerebellar artery (Acute) Discharge planning issues (Acute) DVT prophylaxis (Acute) Upper respiratory infection (Acute) Dizziness (Acute) Vertigo (Acute) S/P left inguinal hernia repair (Acute) 12/10/18, Dr Shanice Benavidez, [facility] Left inguinal hernia (Acute) Right rotator cuff tendonitis (Acute) Medical History?(Updated 04/05/22 @ 08:25 by Yasmani Christianson) Alcohol consumption binge drinking Chronic anxiety Chronic low back pain Degenerative joint disease Depression Erectile dysfunction Hamstring tendinitis hypertension,borderline Onychomycosis Prediabetes Tobacco dependency Surgical History? Colonoscopy - MAC (12/01/17) eye surgery trauma as a child H/O right inguinal hernia repair Social History/Home Situation: Patient states that he was born in [place], [place] and grew up in [place]. He came and got in [place] and has stayed for 18 years. Lives in an apartment with no steps to enter. Community ambulator without AD. Equipment Owned/DME: None Subjective: Krishna complains of being too cold in his room. He lies supine in bed with blankets over him when this PT came in. He verbalizes frsutraion over not being able to use his cell phone to message his daughters, admits to using the speaker to send his messages to family. He states that ceiling lights are hurting his eyes, and inability to fully see. He is also frustrated about word-finding difficulty at times. He reports of some pain in the right forehead but is agreeable to trying out walking in the hallway. Objective: General Observation: Supine in bed. Nurse Carmen present in room putting back the telemetry device onto patient. Mental Status: Alert and oriented x 4 Pain: Patient reports minimal headache headache mostly concentrated on the R frontal area. ROM: Right Upper Extremity: ? Shoulder Flexion WFL. Shoulder abduction WFL. Elbow flexion WFL. Wrist flexion WFL. Opening and closing of hand normal. Left Upper Extremity:? Shoulder Flexion WFL. Shoulder abduction WFL. Elbow flexion WFL. Wrist flexion WFL. Opening and closing of hand normal. Right Lower Extremity: Hip flexion WFL. Hip abduction WFL. Knee flexion WFL. Ankle dorsiflexion WFL. Ankle plantarflexion WFL. Left Lower Extremity: Hip flexion WFL. Hip abduction WFL. Knee flexion WFL. Ankle dorsiflexion to neutral only. Ankle plantarflexion WFL. Strength: Right Upper Extremity: Shoulder flexors 5/5. Shoulder abductors 5/5. Elbow flexors 5/5. Elbow extensors 5/5. Microbiology Manager strong. Left Upper Extremity: Shoulder flexors 4-/5. Shoulder abductors 4-/5. Elbow flexors 4-/5. Elbow extensors 4-/5. Microbiology Manager strong. Right Lower Extremity: Hip flexors 5/5. Hip abductors 5/5. Knee flexors 5/5. Knee extensors 5/5. Ankle dorsiflexors 5/5. Ankle plantarflexors 5/5. Left Lower Extremity:Hip flexors 4-/5. Hip abductors 4-/5. Knee flexors 4/5. Knee extensors 4/5. Ankle dorsiflexors 3-/5. Ankle plantarflexors 5/5. Sensation: Intact as to pain and pressure on bilateral lower extremities. Bed Mobility/Transfers: Rolling supervision Supine to sit supervision Sit to supine supervision Sit to stand SBA Stand to sit SBA Bed to chair SBA Chair to bed SBA Gait: Patient was able to tolerate 300 feet of level surface ambulation using no AD demonstrating mildly wide-based gait requiring SBA and minimal verbal cueing for directions only. Minimal path deviation. Less able to discriminate obstacles on the L side requiring moderate verbal cueing for safety. Balance: Static Sitting: Good Dynamic Sitting: Fair Static Standing: Fair Dynamic Standing: Fair Special Tests: Mobility Limitations Standardized Measure [facility] 6 clicks Basic Mobility Inpatient Short Form: Raw Score: 16 ? CMS Score: 54% deficit? ? ? 4-Stage Balance Test: Patient unable to maintain feet together, to do semi-tandem, full tandem, and one-legged stance. This signifies patient being at risk for falls. Rapid Alternating Movement: Patient unable to follow visual cues with the L UE. Informed Consent/Education: Patient was instructed in purpose of PT consult and plan of care. Agreeable to proceed with established PT POC to achieve personal goals. Assessment: Strength asymmetric, L UE and LE weaker than the R. L hemianopsia dn L hemineglect limiting safety of mobility ADl performance. Krishna is a 62-year-old male with history of chronic back and neck pain who presented to the ED on 04/04/2022 due to complaints of started 1 day prior to admission which has been accompanied by changes in vision. Patient is diagnosed with acute right MCA CVA, diplopia versus left hemianopsia, cocaine use, hypertension, hyperlipidemia, hyponatremia, and EtOH abuse.Basing on the findings of this evaluation, patient may benefit from a short-term rehabilitation for balance progression and achieving independence with ambulation performance. Patient presents with clinical signs and symptoms consistent with current/admitting diagnoses that have resulted to mobility limitations, gait instability, generalized weakness, and impairment of motor control as demonstrated by the following impairment level findings: 1.? Impaired sitting/standing balance 3.? Impaired activity tolerance 4. L hemianopsia: turns head to the L to use R intact vision to scan environment and when using phone difficulty using keys to the phone to message family mild path deviation to R while walking 5. L hemineglect: required cueing to raise L UE too when asked to bring B UE up decreased awareness of L UE with bilateral tasks, needing cueing by PT Impairments are contributing to the following functional limitations: 1.? Inability to safely ambulate without assistance and cueing 2.? Increase completion time for mobility ADL performance 3.? Increased fall risk Patient is assessed as a 66007 moderate complexity based on the following: History: Krishna is a 62-year-old male with history of chronic back and neck pain who presented to the ED on 04/04/2022 due to complaints of started 1 day prior to admission which has been accompanied by changes in vision. Patient is diagnosed with acute right MCA CVA, diplopia versus left hemianopsia, cocaine use, hypertension, hyperlipidemia, hyponatremia, and EtOH abuse. Examination: Demonstrable impairment in strength, balance, and range of motion with underlying impairments and functional limitations as documented above Presentation: Evolving Decision Makin moderate complexity Goals: Goals X1 week 1. Supine-Sit independent 2. Sit-Supine independent 3. Sit-Stand independent 4. Stand-Sit independent 5. Bed-Chair independent 6. Chair-Bed independent 7. Independent gait on level surface without the use of AD for 300 feet without report of pain nor dyspnea 8. Independent with home exercise program 9. Good static and dynamic standing balance/tolerance Plan of Care/Treatment Plan: 1-2x/day, 7 days/week x 1 week. Plan of care has been reviewed with the STUDY ABROAD ADVISOR providing the service under Physical Therapy direction. Initiate Physical Therapy intervention for strengthening, bed mobility, transfers, gait, stairs, balance training, use of assistive device. DISCHARGE RECOMMENDATIONS: [] Home with no services [] [] Home with services [specify] [] Home with outpatient PT [] [] SNF for continued rehabilitation [] [] [facility] [] [] SNF versus LTC based on ability to participate and progress [] [X] Acute stroke rehab center vs. SNF based on progress towards goals and patient's medical status TREATMENT CODE/TIME: 9716 2 x 29 minutes beginning at 13:26 PM. Thank you for the opportunity to participate in the care of this patient. Mya Celis PT, DPT, CLT [facility] [place], [place]
[2022-04-05 14:35] LABS: Potassium 3.7 mmol/L (3.5-5.1)
--- NOTE | 2022-04-05 15:36 | PGE_ITS ---
Date of Service Date of service: 04/05/22 Time of Service: 15:37 Assessment and Plan Assessment and plan (1) Acute right arterial ischemic stroke, middle cerebral artery (MCA): Start date: 04/04/22 Status: Acute Assessment and plan: acute/subacute right MCA CVA affecting right parietal and occipital lobes (2) Diplopia: Status: Acute Assessment and plan: Patient presented with diplopia earlier March but this is actually more left hemianopsia consistent with right CVA. MRI of brain demonstrated acute/subacute CVA of right paritetal and occipital lobes and CTA of head and neck demonstrated right M2 occlusion. (3) Cocaine use: Status: Chronic Assessment and plan: Polysubstance abuse most likely could increase vasospasm the patient does have risk for atherosclerotic thrombotic disease. Echocardiogram will be done to rule out embolic phenomena though patient's heart rhythm appears to be normal at this time. Patient does have a history of polysubstance use. Echo will be deferred to Friday as none is avavilable today. (4) HTN (hypertension): Status: Chronic Assessment and plan: Patient will have permissive hypertension now status post subacute CVA. Hold outpatient antihypertensives for now. Consider beta-angelito if needed. (5) Hyperlipidemia: Status: Chronic Assessment and plan: Patient already on low-dose atorvastatin which will be maximized to 80 mg daily. (6) Hyponatremia: Status: Acute Assessment and plan: Fluid restriction and if needed gentle IV hydration this apparently is a recurrent problem and not severe. It could be secondary to his chronic alcohol use. (7) Alcohol consumption binge drinking: Assessment and plan: Patient should be advised to not drink alcohol with his multiple issues. Prognosis poor for change since he is still manifesting polysubstance abuse. He does appear to self treat. Avoid narcotics for pain management chronically. Subjective Subjective Interval history since last seen: Mr. Davalos presented late w/ R. MCA ischemic stroke. Sx included right sided headache, visual field changes (decreased depth perception), difficulty walking due to imbalance. He reportedly had no focal weakness or paresthesias, however, today he has some left hand numbness, continued right sided headache, dull, ache like my migraines used to present, and has some left sided dyscorrdination of his left hand/arm noticeable w/ finger to nose testing. He denies any focal visual field loss. Exam Narrative Exam Narrative: Mr. 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 but arm strength is slightly decreased against resistance to abduction Legs: normal ROM and strength, normal heel to monson coordination; [place] absent on right but equivocal on left Objective Last Vital Signs Temp 38.1 C H 04/05/22 15:16 Pulse 82 04/05/22 15:14 Resp 16 04/05/22 15:14 BP 107/71 04/05/22 15:14 Pulse Ox 97 04/05/22 15:14 Laboratory Results - last 24 hr 04/04/22 04/04/22 04/04/22 17:40 17:40 17:40 WBC 12.53 H RBC 4.85 Hgb 13.8 Hct 40.4 MCV 83 MCH 28.5 MCHC 34.2 RDW 13.4 Plt Count 297 MPV 9.8 Immature Gran % 0.4 Neutrophils % 63.5 Lymphocytes % 26.5 Monocytes % 8.5 Eosinophils % 0.5 Basophils % 0.6 Nucleated RBC % 0.0 Absolute Neutrophils 7.96 H Absolute Lymphocytes 3.32 Absolute Monocytes 1.07 H Absolute Eosinophils 0.06 Absolute Basophils 0.08 PT INR Sodium 131 L Potassium 3.7 Chloride 95 L Carbon Dioxide 26.0 Anion Gap 10.0 BUN 14 Creatinine 1.1 Est GFR (CKD-EPI 2020) 75.43 Glucose 108 H Calcium 9.2 Magnesium 1.9 Total Bilirubin 1.2 H AST 27 ALT 44 Alkaline Phosphatase 86 Total Protein 8.0 Albumin 4.0 TSH 0.55 Urine Color Urine Clarity Urine pH Ur Specific [place] Urine Protein Urine Ketones Urine Blood Urine Nitrite Urine Bilirubin Urine Urobilinogen Ur Leukocyte Esterase Urine Glucose Urine Opiates Screen Urine Methadone Screen Ur Barbiturates Screen Ur Tricyclics Screen Ur Amphetamines Screen U Benzodiazepines Scrn Urine Cocaine Screen Ur THC Screen COVID-19 Source SARS-CoV-2 (PCR) Add-On Test Request 04/04/22 04/04/22 04/04/22 17:40 19:54 19:54 WBC RBC Hgb Hct MCV MCH MCHC RDW Plt Count MPV Immature Gran % Neutrophils % Lymphocytes % Monocytes % Eosinophils % Basophils % Nucleated RBC % Absolute Neutrophils Absolute Lymphocytes Absolute Monocytes Absolute Eosinophils Absolute Basophils PT 9.9 INR 1.0 Sodium Potassium Chloride Carbon Dioxide Anion Gap BUN Creatinine Est GFR (CKD-EPI 2020) Glucose Calcium Magnesium Total Bilirubin AST ALT Alkaline Phosphatase Total Protein Albumin TSH Urine Color Yellow Urine Clarity Clear Urine pH 7.0 Ur Specific [place] 1.020 Urine Protein Negative Urine Ketones Negative Urine Blood Negative Urine Nitrite Negative Urine Bilirubin Negative Urine Urobilinogen 0.2 Ur Leukocyte Esterase Negative Urine Glucose Negative Urine Opiates Screen Negative Urine Methadone Screen Negative Ur Barbiturates Screen Negative Ur Tricyclics Screen Negative Ur Amphetamines Screen Negative U Benzodiazepines Scrn Negative Urine Cocaine Screen Negative Ur THC Screen Positive A COVID-19 Source SARS-CoV-2 (PCR) Add-On Test Request 04/04/22 04/05/22 04/05/22 20:25 05:40 05:40 WBC 8.78 RBC 4.33 L Hgb 12.1 L Hct 36.1 L MCV 83 MCH 27.9 MCHC 33.5 RDW 13.3 Plt Count 262 MPV 9.6 Immature Gran % Neutrophils % Lymphocytes % Monocytes % Eosinophils % Basophils % Nucleated RBC % Absolute Neutrophils Absolute Lymphocytes Absolute Monocytes Absolute Eosinophils Absolute Basophils PT INR Sodium 129 L Potassium 3.3 L Chloride 97 L Carbon Dioxide 25.2 Anion Gap 6.8 BUN 12 Creatinine 1.2 Est GFR (CKD-EPI 2020) 67.95 Glucose 134 H Calcium 8.6 Magnesium Total Bilirubin 1.2 H AST 26 ALT 35 Alkaline Phosphatase 69 Total Protein 6.7 Albumin 3.2 L TSH Urine Color Urine Clarity Urine pH Ur Specific [place] Urine Protein Urine Ketones Urine Blood Urine Nitrite Urine Bilirubin Urine Urobilinogen Ur Leukocyte Esterase Urine Glucose Urine Opiates Screen Urine Methadone Screen Ur Barbiturates Screen Ur Tricyclics Screen Ur Amphetamines Screen U Benzodiazepines Scrn Urine Cocaine Screen Ur THC Screen COVID-19 Source Nasal/Nares SARS-CoV-2 (PCR) Negative Add-On Test Request 04/05/22 04/05/22 04/05/22 05:40 05:40 14:11 WBC RBC Hgb Hct MCV MCH MCHC RDW Plt Count MPV Immature Gran % Neutrophils % Lymphocytes % Monocytes % Eosinophils % Basophils % Nucleated RBC % Absolute Neutrophils Absolute Lymphocytes Absolute Monocytes Absolute Eosinophils Absolute Basophils PT INR Sodium Potassium 3.7 Chloride Carbon Dioxide Anion Gap BUN Creatinine Est GFR (CKD-EPI 2020) Glucose Calcium Magnesium 1.8 Total Bilirubin AST ALT Alkaline Phosphatase Total Protein Albumin TSH Urine Color Urine Clarity Urine pH Ur Specific [place] Urine Protein Urine Ketones Urine Blood Urine Nitrite Urine Bilirubin Urine Urobilinogen Ur Leukocyte Esterase Urine Glucose Urine Opiates Screen Urine Methadone Screen Ur Barbiturates Screen Ur Tricyclics Screen Ur Amphetamines Screen U Benzodiazepines Scrn Urine Cocaine Screen Ur THC Screen COVID-19 Source SARS-CoV-2 (PCR) Add-On Test Request DONE PAWSS Have you Been Recently Intoxicated or Drunk Within the Last 30 days?: No Have you Ever Experienced Previous Episodes of Alcohol Withdrawal?: No Have you ever Experienced Withdrawal Seizures?: No Have you ever Experienced Delirium Tremens(DT)s?: No Have you ever undergone Alcohol Rehabilitation Treatment (i.e, inpt ot outpatient treatment programs)?: No Have you ever Experienced Blackouts?: No Have you ever Combined Alcohol with other Downers within the last 90 days?: No Have you ever Combined Alcohol with any other Substance of Abuse during the last 90 days?: No Result: 0
[2022-04-05] MEDS: Acetaminophen 500 MG TAB 1000 MG PO (20:13)
[2022-04-05] MEDS: Atorvastatin 20 MG TAB 80 MG PO (22:11)
[2022-04-06] VITALS (10 sets, daily range): BP systolic 116–125; BP diastolic 55–86; PULSE 67–96; RESP 16–22; TEMP 36.2–37.6; O2SAT 97–98
[2022-04-06 01:08] LABS: Bilirubin Negative (Negative); Blood Negative (Negative); Clarity Clear (Clear); Glucose Negative (Negative); Ketones Negative (Negative); Leukocyte Esterase Negative (Negative); Nitrite Negative (Negative); Urobilinogen 0.2 EU/dL (Up TO 0.2)
[2022-04-06 06:31] LABS: Anion Gap 6.8 mmol/L (3-11); BUN 16 mg/dL (7-18); CO2 25.2 mmol/L (21.0-32.0); CREATININE 1.1 mg/dL (0.70-1.30); Calcium 8.6 mg/dL (8.5-10.1); Chloride 101 mmol/L (98-107); Estimated GFR 75.43 (mL/min/1.73m2); Glucose 93 mg/dL (74-106); Potassium 3.8 mmol/L (3.5-5.1); Sodium 133 mmol/L (136-145)
[2022-04-06] MEDS: Acetaminophen 500 MG TAB 1000 MG PO ×2 (08:22→19:32)
[2022-04-06] MEDS: Aspirin 81 MG CHEW PO (08:23)
[2022-04-06] MEDS: Clopidogrel 75 MG TAB PO (08:23)
[2022-04-06] MEDS: Cetirizine 10 MG TAB PO (08:23)
--- NOTE | 2022-04-06 11:49 | PT.INTREAT ---
PT Notes Visit Reasons: Subacute Right MCA CVA, Hypertension, Cocaine Use Inpatient Physical Therapy Treatment Note [facility] Date: 04/06/22 SUBJECTIVE: C/o feeling LINK as well as pain behind his eyes. He c/o suboccipital heaviness during treatment. OBJECTIVE: [] BED MOBILITY/TRANSFERS Supine-sit: SBA Sit-supine: SBA Sit-stand: SBA Stand-sit: SBA GAIT Assistive Device:None Weight bearing: AT Assist: CGA Distance: approx 300' Deviation: slow charles with decrease in stride length. Frequent stops due to suboccipital discomfort. Left side neglect. STAIRS: ascend/descend clinic steps. 3x4 and 2x6 with use of hand rail on right and CGA. Verbal cues with left UE as he is unaware of it. ASSESSMENT: tolerated session fair. Fairly unsteady on his feet. Refuses to use AD. Safety is an issue. Reports his head feels better while lying in bed. PLAN: will continue to work on his functional mobility, adding in some balance work next session. TREATMENT CODE/TIME: 20 min [id number]
--- NOTE | 2022-04-06 14:14 | W.PM.PROGNOT ---
Date of Service Date of service: 04/06/22 Time of Service: 14:14 Assessment and Plan Assessment and plan (1) Acute right arterial ischemic stroke, middle cerebral artery (MCA): Start date: 04/04/22 Status: Acute Assessment and plan: Timeacute/subacute right MCA CVA affecting right parietal and occipital lobes manifested by left hemianopsia and proprioceptive difficulties as well as discoordination of his left hand and arm. Carotid ultrasound was negative for any occlusive disease in the cervical vessels. Echocardiogram will be done on Friday morning. Neurology consultation was obtained through our [place] [facility] They had no further recommendations other than dual antiplatelet therapy and rehabilitation services. Per rehab services he is still unsteady gait and shows left hemineglect. Patient will probably require high-level rehabilitation center such as [facility] or [facility]. Professional time spent interviewing and examining patient, discussion of goals of care with hospital team (care management, nursing and consulting professionals) was 30 minutes. (2) Cocaine use: Status: Chronic Assessment and plan: Polysubstance abuse most likely could increase vasospasm the patient does have risk for atherosclerotic thrombotic disease. Echocardiogram will be done to rule out embolic phenomena though patient's heart rhythm appears to be normal at this time. Patient does have a history of polysubstance use. Echo will be deferred to Friday as none is avavilable today. (3) HTN (hypertension): Status: Chronic Assessment and plan: Patient will have permissive hypertension now status post subacute CVA. Hold outpatient antihypertensives for now. Consider beta-angelito if needed. (4) Hyperlipidemia: Status: Chronic Assessment and plan: Patient already on low-dose atorvastatin which will be maximized to 80 mg daily. will check his lipid profile (5) Alcohol consumption binge drinking: Assessment and plan: Patient should be advised to not drink alcohol with his multiple issues. Prognosis poor for change since he is still manifesting polysubstance abuse. He does appear to self treat. Avoid narcotics for pain management chronically. (6) Headache: Status: Acute Assessment and plan: Repeat noncontrast CT of the head. If no evidence of hemorrhage or extension of his stroke we will adjust his dose of his tramadol for his pain and add low-dose verapamil. (7) Discharge planning issues: Status: Acute Assessment and plan: Patient will likely need either SNF or higher level rehabilitation facility Subjective Subjective Interval history since last seen: Ary still has dull right sided headache behind his right eye and over the right parital area and radiating into the occiput. The Tramadol does help. Exam Narrative Exam Narrative: Ary was sleeping when I came into the room. When I woke him up he began to complain of his headache again to me HEENT: No dysarthric speech no facial mimetic muscle weakness. Full extraocular motion intact. Visual gaona are decreased in the left lateral field particularly in the left lateral mid and lower field. Neck is supple no JVD Lungs are clear to auscultation Heart is regular rate and rhythm without murmur rub or gallop Abdomen soft nondistended nontender Extremities he has normal range of motion and strength in his upper and lower extremities although he seems to be discoordinated with his left hand but I could not appreciate a weakness when I tested his intrinsic muscles of his hand he had normal hand yoke setter strength normal flexion-extension at the elbow and normal abduction of the arm. Likewise the right upper extremity was within normal limits and both lower extremities were within normal limits. With finger-nose testing he was discoordinated on the left side but this was equal with his left hand and his right hand whenever he was looking to his left. He had to look all the way to left using his right eye to be able to see me. On the right side he had better [id number] proprioception. Still has a bit of drift of the left arm. Objective Last Vital Signs Temp 37 C 04/06/22 11:21 Pulse 72 04/06/22 11:21 Resp 22 04/06/22 11:21 BP 125/86 04/06/22 11:21 Pulse Ox 98 04/06/22 11:21 Laboratory Results - last 24 hr 04/05/22 04/06/22 04/06/22 14:11 00:55 05:35 Sodium 133 L Potassium 3.7 3.8 Chloride 101 Carbon Dioxide 25.2 Anion Gap 6.8 BUN 16 Creatinine 1.1 Est GFR (CKD-EPI 2020) 75.43 Glucose 93 Calcium 8.6 Urine Color Yellow Urine Clarity Clear Urine pH 6.0 Ur Specific [place] 1.020 Urine Protein Negative Urine Ketones Negative Urine Blood Negative Urine Nitrite Negative Urine Bilirubin Negative Urine Urobilinogen 0.2 Ur Leukocyte Esterase Negative Urine Glucose Negative PAWSS Have you Been Recently Intoxicated or Drunk Within the Last 30 days?: No Have you Ever Experienced Previous Episodes of Alcohol Withdrawal?: No Have you ever Experienced Withdrawal Seizures?: No Have you ever Experienced Delirium Tremens(DT)s?: No Have you ever undergone Alcohol Rehabilitation Treatment (i.e, inpt ot outpatient treatment programs)?: No Have you ever Experienced Blackouts?: No Have you ever Combined Alcohol with other Downers within the last 90 days?: No Have you ever Combined Alcohol with any other Substance of Abuse during the last 90 days?: No Result: 0
--- NOTE | 2022-04-06 16:00 | DI.CT_ITS ---
Exam(s) CT HEAD WO EXAM: CT HEAD WO CLINICAL HISTORY: right sided headache, s/p stroke. TECHNIQUE: Imaging Protocol: Axial computed tomography images with coronal and sagittal reformatted images were created and reviewed COMPARISON: CT CT BRAIN NECK CTA from 04/04/2022 MR MR BRAIN WO from 04/05/2022 FINDINGS: Ventricles and Extra axial spaces: Normal in size and morphology for the patient's age. Hemorrhage: None. Cerebral parenchyma: Stable areas of infarct in the right parietal and occipital lobes. No new areas of infarct visible. Midline shift: None. Brainstem/Cerebellum: Normal. Calvarium: Normal. Visualized Paranasal sinuses/Mastoids: Clear. Soft Tissues: Unremarkable. IMPRESSION: Stable right parietal and occipital infarcts. RADIATION DOSE DELIVERED: 758.88mGy.cm Total DLP DATA REPOSITORY: All CT scans at this facility are submitted to the National Radiology Data Registry (NRDR) Dose Index Registry (DIR) with the [employer] (ACR). RADIATION OPTIMIZATION: All CT scans at this facility use at least one of these dose optimization te chniques: automated exposure control; mA and/or kV adjustment per patient size (includes targeted exa ms where dose is matched to clinical indication); or iterative reconstruction.
--- NOTE | 2022-04-06 16:21 | DI.VRAD_ITS ---
PROCEDURE INFORMATION: Exam: CT Head Without Contrast Exam date and time: 04/06/2022 3:54 PM Age: 62 years old Clinical indication: Right sided headache, S/P stroke TECHNIQUE: Imaging protocol: Computed tomography of the head without contrast. COMPARISON: MR BRAIN WO 04/05/2022 10:10 AM FINDINGS: Brain: There is hypodensity noted in the right frontal lobe, right parietal lobe, right occipital lobe, and right temporal lobe consistent with known infarct. There is no evidence of acute intracranial hemorrhage. There is mild edema from the infarct causing mild mass effect, without evidence of midline shift. Cerebral ventricles: No ventriculomegaly. Paranasal sinuses: Visualized sinuses are unremarkable. No fluid levels. Mastoid air cells: Visualized mastoid air cells are well aerated. Bones/joints: No acute fracture. Soft tissues: Unremarkable. IMPRESSION: Stable right MCA territory infarct without evidence of acute intracranial hemorrhage or midline shift. Dictated and Authenticated by: Aracelis Crandall MD. Ordering:[facility] Veena Frausto MD
[2022-04-06] MEDS: Verapamil 80 MG TAB 20 MG PO (19:32)
[2022-04-06] MEDS: Atorvastatin 20 MG TAB 80 MG PO (22:43)
[2022-04-06] MEDS: Normal Saline Flush 10 ML SYR IVP (22:43)
[2022-04-07] VITALS (10 sets, daily range): BP systolic 114–154; BP diastolic 70–95; PULSE 62–94; RESP 14–18; TEMP 36.2–37.1; O2SAT 97–99
[2022-04-07 06:26] LABS: Hemoglobin A1C 6.2 % (<5.7)
[2022-04-07 06:27] LABS: Calculated LDL 61 mg/dL (<100); Cholesterol 127 mg/dL (<200); HDL Cholesterol 55 mg/dL (40-60); Triglyceride 58 mg/dL (<150)
[2022-04-07] MEDS: Clopidogrel 75 MG TAB PO (08:52)
[2022-04-07] MEDS: Aspirin 81 MG CHEW PO (08:52)
[2022-04-07] MEDS: Cetirizine 10 MG TAB PO (08:52)
[2022-04-07] MEDS: Verapamil 80 MG TAB 20 MG PO (08:52)
[2022-04-07] MEDS: Acetaminophen 500 MG TAB 1000 MG PO ×2 (08:52→19:48)
--- NOTE | 2022-04-07 12:21 | PT.INTREAT ---
PT Notes Visit Reasons: Subacute Right MCA CVA, Hypertension, Cocaine Use Inpatient Physical Therapy Treatment Note [facility] Date:04/07/22 SUBJECTIVE: Ary states that he continues to have pain in his head, but seems to be sound or light induced. 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 Feet together with head turns left/right x8 and up/down x8. Alternating finger to nose x8 ea. STAIRS: ascend/descend clinic steps, 3 x4' steps and 2x 6 steps x 2 with CGA/SBA and rail on right. ASSESSMENT: improved balance compared to yesterday. Still noting left side neglect and poor coordination of left UE. Does better with cues. PLAN: will continue to work on balance and coordination ex as well as functional mobility. TREATMENT CODE/TIME: 25 min [id number], [id number]
--- NOTE | 2022-04-07 14:50 | W.PM.PROGNOT ---
Date of Service Date of service: 04/07/22 Time of Service: 14:50 Assessment and Plan Assessment and plan (1) Acute right arterial ischemic stroke, middle cerebral artery (MCA): Start date: 04/04/22 Status: Acute Assessment and plan: continue P.T., will add O.T. consult; awaiting neurology consult. cont. ASA, plavix, atorvastatin; I am recommending higher level rehab facility but patient is not inclined to do so. Will arrange home PT, OT and nursing to follow up w/ him upon discharge. Professional time spent interviewing and examining patient, discussion of goals of care with hospital team (care management, nursing and consulting professionals) was 30 minutes. (2) Cocaine use: Status: Chronic Assessment and plan: patient reports that he is no longer using. I explained to him that continued use will increase his risk for further strokes (3) HTN (hypertension): Status: Chronic Assessment and plan: I have put him on low dose verapamil for his headache and will titrate this dose. I have not resumed his other antihypertensive as he has not needed them. (4) Hyperlipidemia: Status: Chronic Assessment and plan: Patient already on low-dose atorvastatin which will be maximized to 80 mg daily. Lipid levels are under good control but taken while on high dose atorvastatin. LDL is at goal at 60 mg/dL. I will continue his atorvastatin but can reduce from 80 mg/day to 40 mg/d upon discharge home and recheck levels in 3 months. (5) Alcohol consumption binge drinking: Assessment and plan: Patient should be advised to not drink alcohol with his multiple issues. Prognosis poor for change since he is still manifesting polysubstance abuse. He does appear to self treat. Avoid narcotics for pain management chronically. (6) Headache: Status: Acute Assessment and plan: repeat non-contrast CT head yesterday showed not new findings. Stable right sided parietal and occipital infarcts. Headache improving since verapamil added. I will change to longer acting verapamil tonight . (7) Discharge planning issues: Status: Acute Assessment and plan: Patient will likely need either SNF or higher level rehabilitation facility but is declining this option. Subjective Subjective Interval history since last seen: Patient states that his headaches have improved a little. Headache is exacerbated by light or loud noises. He noted that when he flushes his toilet the noise seems particularly intense. I spoke w/ him about going to a highly skilled rehab facility such as [facility] or [facility] and he seems disinterested. He wants to return home. I do not think that is a ponce choice as he still has some balance issues and left hemineglect. I told him that tomorrow we will have a neurologist see him and we will get TTE w/ bubble study. Upon discharge he should have a 30 day event recorder. Exam Narrative Exam Narrative: Ary was sleeping very soundly and exhibiting severe snoring Neuro exam is pretty much unchanged; still w/ left sided hemineglect, has left hemianopsia worse in LLQ; Left hand seems less clumsy; able to do finger to nose testing and as long as I keep my hand within his visual range he does fairly well on the left although not as well as his right hand; heel to monson is normal. BLE strength and ROM are normal. LUE still w/ pronator drift and some dyscoordination w/ use of his left arm and hand (he is right handed) but hand supervisor food checkers and cashiers strength is fairly good although not as strong as the right. Objective Last Vital Signs Temp 36.5 C 04/07/22 10:55 Pulse 71 04/07/22 13:05 Resp 15 04/07/22 10:55 BP 114/71 04/07/22 13:05 Pulse Ox 99 04/07/22 10:55 Laboratory Results - last 24 hr 04/07/22 04/07/22 05:42 05:42 Hemoglobin A1c 6.2 H Triglycerides 58 Total Cholesterol 127 LDL Cholesterol, Calc 61 HDL Cholesterol 55 Reviewed Pertinent PMH: Yes PAWSS Have you Been Recently Intoxicated or Drunk Within the Last 30 days?: No Have you Ever Experienced Previous Episodes of Alcohol Withdrawal?: No Have you ever Experienced Withdrawal Seizures?: No Have you ever Experienced Delirium Tremens(DT)s?: No Have you ever undergone Alcohol Rehabilitation Treatment (i.e, inpt ot outpatient treatment programs)?: No Have you ever Experienced Blackouts?: No Have you ever Combined Alcohol with other Downers within the last 90 days?: No Have you ever Combined Alcohol with any other Substance of Abuse during the last 90 days?: No Result: 0
[2022-04-07] MEDS: Normal Saline Flush 10 ML SYR IVP (19:48)
[2022-04-07] MEDS: Atorvastatin 20 MG TAB 80 MG PO (22:19)
[2022-04-08] VITALS (8 sets, daily range): BP systolic 118–134; BP diastolic 74–89; PULSE 62–92; RESP 18–21; TEMP 36.1–37; O2SAT 98
--- NOTE | 2022-04-08 07:00 | DI.US_ITS ---
APPROVED REPORT EXAM: Comprehensive 2D, Doppler, and color-flow Echocardiogram Patient Location: In-Patient Room/Bed: [facility] Energy Conservation Technician: Hattie Mejia RDCS (AE) Indications: Right CVA Echo Enhancing Agent Indication: Rule out Shunt Agent(s) / Amount(s) Used: Agitated Saline 30.0 cc Comments: Contrast study was performed with 3 IV injections of 10ccs of agitated normal saline, at [facility], with cough and post valsalva maneuver. Negative contrast study for shunt flow. Other Information Study Quality: Adequate Conclusion Normal left ventricular wall thickness and chamber size. Estimated ejection fraction is 60%. There are no segmental wall motion abnormalities Normal right ventricular size and systolic function Both atria are normal in size There is no structural or hemodynamically significant valvular disease No evidence of intracardiac shunting with injection of agitated saline Dilated ascending aorta measuring 4.03 cm Wall motion Left Ventricle The left ventricle is normal size. The left ventricular systolic function is normal. The left ventric ular ejection fraction is within the normal range. There is normal left ventricular wall thickness. T here is normal LV segmental wall motion. There is no ventricular septal defect visualized. LVEF is 60 %. Right Ventricle The right ventricle is normal size. The right ventricular systolic function is normal. The RVSP is 20 .3_ mmHg. Atria The left atrium size is normal. The right atrium size is normal. The interatrial septum is intact wit h no evidence for an atrial septal defect. Aortic Valve The aortic valve is normal in structure. Aortic valve is trileaflet. There is no aortic valvular sten osis. No aortic regurgitation is present. Mitral Valve The mitral valve is normal in structure. No evidence of mitral valve stenosis. Trace mitral regurgita tion. Tricuspid Valve The tricuspid valve is normal in structure. There is no tricuspid valve stenosis. Trace tricuspid reg urgitation. Pulmonic Valve The pulmonary valve is normal in structure. There is no pulmonic valvular stenosis. Trace pulmonic re gurgitation. Great Vessels The aortic root is normal in size. The ascending aorta is moderately dilated. Aortic arch is normal i n caliber. IVC is normal in size and collapses >50% with inspiration. Pericardium There is no pericardial effusion. 2D Dimensions IVSD d PLAX 1.02 cm M: 0.6-1.2 LV Vol A2C d MOD 119.8 mL LVPW d PLAX 1.03 cm M: 0.6 - 1.2 LV Vol A4C d MOD 101.3 mL LVID d PLAX 5.14 cm M: 4.2 - 5.8 LA vol/ BSA A2C s A-L 28.9 mL/m2 LVDs 3.35 cm M: 2.5 - 4.0 LA vol/ BSA A4C s A-L 15.1 mL/m2 Ao Root d 3.73 cm M: 3.1 - 3.7 LA Vol/ BSA Biplane s A-L 22.3 mL/m2 RA Area A4C 13.13 cm2 LA Area A4C s MOD 13.22 cm2 RA Vol/ BSA A4C s A-L 16.1 mL/m2 LA Area A2C s MOD 19.50 cm2 Ao Asc Diam d 4.03 cm M: 2.6 - 3.4 LV EF A4C MOD 60.5 % LV EF Teichholz 62.9 % LV EF A2C MOD 60.5 % LVEF (Boothe's) 60.55 % M: 52 - 72 LV EF Biplane MOD 60.6 % LV Volume 82.96 mL M: 62 - 150 SV 67.22 mL LV Volume Index 41.06 mL/m2 M: 34 - 74 SV Index 33.26 mL/m2 LV Vol Biplane MOD 111.0 mL FS 34.20 % M-Mode TAPSE 2.30 cm (M/F) >1.7 LV Diastology MV E' medial 0.117 (>0.07 m/s) E/A Ratio 1.0 LV E/e MED 5.55 (<14) MV E Vmax 0.65 (0.4-1.3 m/s) MV E' lateral 0.137 (>0.1 m/s) MV A Vmax 0.65 (0.4-1.3 m/s) LV E/e LAT 4.75 (<14) MV E/A Ratio 0.94 MV E/E' medial 5.56 MV E/E' lateral 4.76 Aortic Valve LVOT Area 2.93 cm2 AoV Area Vmax 2.46 cm2 LVOT Vmax 1.09 m/s AoV Area/ BSA (Vmax) 1.22 cm2/m2 LVOT Mean Lawrence. 0.69 m/s YOU Mean Lawrence. 2.27 cm2 LVOT Peak Grad 4.8 mmHg YOU Mean Lawrence. Index 1.12 cm2/m2 LVOT Mean Grad 2.3 mmHg LVOT VTI 0.215 m LVOT Diam s 1.90 cm AoV Vmax 1.30 m/s Velocity Ratio 0.83 AoV Mean Lawrence. 0.90 m/s AoV Peak Grad 6.8 mmHg LVOT SV 62.92 mL AoV Mean Grad 3.6 mmHg AoV VTI 0.251 m AoV Area VTI 2.50 cm2 AoV Area/ BSA (VTI) 1.24 cm/m2 Mitral Valve MV DT 236 (160-240 msec) MV PHT 68 msec MV Area PHT 3.21 cm2 MV VTI 0.293 m MV Area VTI 2.15 (4.0-6.0 cm2) Pulmonary Valve PV Vmax 1.09 (0.5-1.5 m/s) RVOT Peak Gr. 2.86 mmHg PV Peak Grad 4.8 mmHg RVOT Mean Gr. 1.35 mmHg PV Mean Grad 2.4 mmHg RVOT VTI 0.181 m PV VTI 0.226 m RVOT Vmax 0.85 m/s Tricuspid Valve TR Peak Grad 17.2 mmHg TR Vmax 2.08 m/s RA Pressure 3.00 mmHg RVSP (TR) 20.3 mmHg
[2022-04-08] MEDS: Cetirizine 10 MG TAB PO (08:29)
[2022-04-08] MEDS: Normal Saline Flush 10 ML SYR IVP (08:29)
[2022-04-08] MEDS: Acetaminophen 500 MG TAB 1000 MG PO ×2 (08:29→14:44)
[2022-04-08] MEDS: Clopidogrel 75 MG TAB PO (08:29)
[2022-04-08] MEDS: Aspirin 81 MG CHEW PO (08:29)
--- NOTE | 2022-04-08 09:27 | PDOC.CMPRO ---
- If Service Date Differs Date of service: 04/08/22 Time of Service: 09:27 Care Management Progress Note S/O: Ary Collado requires close monitoring and further medical workup. Echo is ordered and pt is awaiting a neurology consult. Per PT: improved balance compared to yesterday. Still noting left side neglect and poor coordination of left UE. OT and ST consults are placed. A: 62 year old male admitted to 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 He refuses Acute rehab. Outpatient Sleep Study is recommended to evaluate for and treat sleep apnea. He will follow up with his PCP and plan of care and transport with family. CM will support Mildebbiee and assess for ongoing discharge concerns.
--- NOTE | 2022-04-08 11:50 | OT.INTREAT ---
Occupational Therapy Notes Occupational Therapy Inpatient Treatment Note Date: 04/08/22 PRECAUTIONS: Fall, standard, full SUBJECTIVE: Pt was lying in bed when OT arrived. He was talking to the television reporting that, he did not want to hear any excuses. OBJECTIVE: PAIN:no c/o pain FUNCTIONAL MOBILITY Supine-sit: (I) Sit-supine: (I) BATHING: Upper Body: Pt was receptive to washing his face and (B) UE, he required vc for this and mod vc for task initiation with (L) UE. OT and pt discuss use of (L) UE for ADLs which he denies having any difficulty with. Pt denies any further bathing at this time. ASSESSMENT/PLAN: Pt presents with continued neglect of (L) UE, decreased cognitive function, visual deficit affecting his functional (I) and decreased ability to perform his ADLs (I) with vc for task initiation and performance. Pt is receptive to education and training but is not able to use his (L) (I) without vc throughout. OT will continue to monitor this. OT continued to recommend SNF at this time due to pts deficits va. services with caregiver (A). TREATMENT CODES/TIME: [id number], 10 minutes Bonnie Freeman OTR/L [facility]
--- NOTE | 2022-04-08 14:07 | INDS_ITS ---
PT Notes Visit Reasons: Subacute Right MCA CVA, Hypertension, Cocaine Use Physical Therapy Inpatient Discharge Summary Date: 04/05/2022 Dates of Service: 04/05/2022 through 04/08/2022 Referring Doctor: Yasmani Christianson MD PT Orders: PT CONSULT: Limited ability Precautions: Fall. Standard.? Limited visual acuity on the left side. Patient Profile/Admitting Diagnosis:? Krishna is a 62-year-old male with history of chronic back and neck pain who presented to the ED on 04/04/2022 due to complaints of started 1 day prior to admission which has been accompanied by changes in vision.? Patient is diagnosed with acute right MCA CVA, diplopia versus left hemianopsia, cocaine use, hypertension, hyperlipidemia, hyponatremia, and EtOH abuse. PMHX: All Active Problems?(Updated 04/05/22 @ 08:25 by Yasmani Christianson) Hyponatremia (Acute) Hyperlipidemia (Chronic) HTN (hypertension) (Chronic) Acute right arterial ischemic stroke, middle cerebral artery (MCA) (Acute) CVA (cerebral vascular accident) (Chronic) Diplopia (Acute) Nasal turbinate hypertrophy (Acute) Nasal obstruction (Acute) Allergic rhinitis due to allergen (Acute) Deviated nasal septum (Acute) Nasal polyp (Acute) Sensory hearing loss, unilateral (Acute) Environmental allergies (Acute) Smoker (Acute) Cocaine use (Chronic) Thrombotic stroke involving cerebellar artery (Acute) Discharge planning issues (Acute) DVT prophylaxis (Acute) Upper respiratory infection (Acute) Dizziness (Acute) Vertigo (Acute) S/P left inguinal hernia repair (Acute) 12/10/18, Dr Shanice Benavidez, [place] Left inguinal hernia (Acute) Right rotator cuff tendonitis (Acute) Medical History?(Updated 04/05/22 @ 08:25 by Yasmani Christianson) Alcohol consumption binge drinking Chronic anxiety Chronic low back pain Degenerative joint disease Depression Erectile dysfunction Hamstring tendinitis hypertension,borderline Onychomycosis Prediabetes Tobacco dependency Surgical History? Colonoscopy - MAC (12/01/17) eye surgery trauma as a child H/O right inguinal hernia repair Social History/Home Situation: Patient states that he was born in [place], [place] and grew up in [place]. He came and got in [place] and has stayed for 18 years.? Lives in an apartment with no steps to enter.? Community ambulator without AD. Equipment Owned/DME: None Subjective: Krishna reports improved awareness of environment but continues to complain sensitivity to light. Refuses to go to an acute stroke facility, hoping to go home as soon as medically cleared. Objective: General Observation: Inside rest room doing bowel movement Mental Status: Alert and oriented x 4 Pain: Denies headache, chest pain and lighheadedness ROM: Right Upper Extremity: ? Shoulder Flexion WFL. Shoulder abduction WFL. Elbow flexion WFL. Wrist flexion WFL. Opening and closing of hand normal. Left Upper Extremity:? Shoulder Flexion WFL. Shoulder abduction WFL. Elbow flexion WFL. Wrist flexion WFL. Opening and closing of hand normal. Right Lower Extremity: Hip flexion WFL. Hip abduction WFL. Knee flexion WFL. Ankle dorsiflexion WFL. Ankle plantarflexion WFL. Left Lower Extremity: Hip flexion WFL. Hip abduction WFL. Knee flexion WFL. Ankle dorsiflexion to neutral only. Ankle plantarflexion WFL. Strength: Right Upper Extremity: Shoulder flexors 5/5. Shoulder abductors 5/5. Elbow flexors 5/5. Elbow extensors 5/5. Sail Repair Person strong. Left Upper Extremity: Shoulder flexors 4-/5. Shoulder abductors 4-/5. Elbow flexors 4-/5. Elbow extensors 4-/5. Sail Repair Person strong. Right Lower Extremity: Hip flexors 5/5. Hip abductors 5/5. Knee flexors 5/5. Knee extensors 5/5. Ankle dorsiflexors 5/5. Ankle plantarflexors 5/5. Left Lower Extremity:Hip flexors 4-/5. Hip abductors 4-/5. Knee flexors 4/5. Knee extensors 4/5. Ankle dorsiflexors 3-/5. Ankle plantarflexors 5/5. Sensation: Intact as to pain and pressure on bilateral lower extremities. Bed Mobility/Transfers: Rolling independent Supine to sit independent Sit to supine independent Sit to stand independent Stand to sit independent Bed to chair independent Chair to bed independent Gait: Patient was able to tolerate 600 feet of level surface ambulation using no AD demonstrating mildly wide-based gait requiring supervision and minimal verbal cueing for directions only.? Minimal path deviation.? Increased ability to discriminate obstacles on the L side, hesitates and slows down when encountering obstacles but is able to negotiate without verbal cues. Impaired arm swing. Balance: Static Sitting: Good Dynamic Sitting: Fair Static Standing: Fair Dynamic Standing: Fair Special Tests: Mobility Limitations Standardized Measure [facility] AM-PAC 6 clicks Basic Mobility Inpatient Short Form: Raw Score: 22 ? CMS Score: 21% deficit? ? ? 4-Stage Balance Test: Patient unable to maintain feet together, to do semi-tandem, full tandem, and one-legged stance. This signifies patient being at risk for falls. Rapid Alternating Movement: Patient unable to imitate movements on L UE despite visual cues by PT Assessment: Strength asymmetric,? L UE and LE weaker than the R.? L hemianopsia dn L hemineglect limiting safety of mobility ADl performance.? Krishna is a 62-year-old male with history of chronic back and neck pain who presented to the ED on 04/04/2022 due to complaints of started 1 day prior to admission which has been accompanied by changes in vision.? Patient is diagnosed with acute right MCA CVA, diplopia versus left hemianopsia, cocaine use, hypertension, hyperlipidemia, hyponatremia, and EtOH abuse.Basing on the findings of this evaluation, patient may benefit from a short-term rehabilitation for balance progression and achieving independence with ambulation performance. Patient presents with clinical signs and symptoms consistent with current/ad mitting diagnoses that have resulted to mobility limitations, gait instability, generalized weakness, and impairment of motor control as demonstrated by the following impairment level findings: 1.? Impaired sitting/standing balance 3.? Impaired activity tolerance 4.? L hemianopsia: turns head to the L to use R intact vision to scan environment and when using phone ? difficulty using keys to the phone to message family ? mild path deviation to R while walking 5.? L hemineglect: required cueing to raise L UE too when asked to bring B UE up ? decreased awareness of L UE with bilateral tasks, needing cueing by PT Impairments are contributing to the following functional limitations: 1.? Inability to safely ambulate without assistance and cueing 2.? Increase completion time for mobility ADL performance 3.? Increased fall risk Patient is assessed as a [id number] moderate complexity based on the following: History: Krishna is a 62-year-old male with history of chronic back and neck pain who presented to the ED on 04/04/2022 due to complaints of started 1 day prior to admission which has been accompanied by changes in vision.? Patient is diagnosed with acute right MCA CVA, diplopia versus left hemianopsia, cocaine use, hypertension, hyperlipidemia, hyponatremia, and EtOH abuse. Examination: Demonstrable impairment in strength, balance, and range of motion with underlying impairments and functional limitations as documented above Presentation: Evolving Decision Makin moderate complexity Goals: Goals X1 week 1. Supine-Sit independent MET 2. Sit-Supine independent MET 3. Sit-Stand independent MET 4. Stand-Sit independent MET 5. Bed-Chair independent MET 6. Chair-Bed independent MET 7. Independent gait on level surface without the use of AD for 300 feet without report of pain nor dyspnea NOT MET 8. Independent with home exercise program NOT MET 9. Good static and dynamic standing balance/tolerance MET DISCHARGE RECOMMENDATIONS: [] ? Home with no services [] [] ? Home with services [specify] [] ? Home with outpatient PT [] [] ? SNF for continued rehabilitation [] [] ? [facility] [] [] ? SNF versus LTC based on ability to participate and progress [] [X]? Acute stroke rehab center vs. SNF vs. OP PT based on progress towards goals and patient's medical status TREATMENT CODE/TIME: 50830 x 28 minutes beginning at 14:07 PM. Thank you for the opportunity to participate in the care of this patient. Mya Celis PT, DPT, CLT [facility] [place], [place]
--- NOTE | 2022-04-08 15:00 | PTTR_ITS ---
Date of service: 04/08/22 Time of Service: 08:56 PT Notes Visit Reasons: Subacute Right MCA CVA, Hypertension, Cocaine Use Inpatient Physical Therapy Treatment Note [facility] Date: 04/08/2022 PRECAUTIONS: Fall, activity as tolerated SUBJECTIVE: David is pleasant and agreeable to participating in PT. He reports that he is feeling better today. OBJECTIVE: PAIN: No c/o pain BED MOBILITY/TRANSFERS Sit-stand: SBA Stand-sit: SBA GAIT Assistive Device: No AD Weight bearing: Full Assist: CGA-SBA Distance: 300' + 25' Deviation: No arm swing on L, hesitant gait improving with distance NEURO SANDY: Patient was instructed in a neuro re-education program with a focus on L-sided involvement and improved balance, to include: functional [id number] without UE support, [id number] with ball toss, forward reach for object and place-behind with trunk rotation (and reverse), and 4 quadrant box- stepping. ASSESSMENT: Patient tolerated a progression in gait distance without hand held support. He demonstrates improved L-sided inclusion as well as improved balance and stability with both static and dynamic activities. PLAN: Continue with neuro re-education for improved balance and stability and L- sided involvement. TREATMENT CODE/TIME: 28 minutes; 81632, [id number] (08:56)
--- NOTE | 2022-04-08 15:56 | W.NEUROCONSU ---
Date of service: 04/08/22 Time of Service: 15:56 Assessment and Plan Assessment and plan (1) Acute right arterial ischemic stroke, middle cerebral artery (MCA): Status: Acute (2) Left homonymous hemianopsia: Status: Acute (3) Bk-neglect of left side: Status: Acute (4) Discharge planning issues: Status: Acute (5) Smoker: Status: Acute Assessment and plan: Mr. Davalos is a 62 year-old admitted for right hemisphere ischemic stroke manifested by left homonymous hemianopsia, left hemineglect, ?subtle L face weakness, ?dysrthria, and headache. Etiology likely due to large vessel atherosclerosis, however, cardioembolus has not been ruled out. 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 History of Present Illness History of Present Illness Chief Complaint: stroke Narrative: Handedness: right. Mr. Davalos is a 62 year-old man with a PMHx of polysubstance and ETOH abuse, cigarette smoking, hypertension, stroke, COPD, ED, and prior homelessness. I previously met Mr. Davalos x1 in April 2019 after he suffered a subacute left cerebellar stroke in February 2019 manifested by vertigo, nausea, and emesis, in the setting of cocaine use.? The most likely etiology of his stroke was small vessel disease from his cocaine use.? His work-up was significant for a new diagnosis of pre-diabetes. He was started on aspirin 81mg daily and atorvastatin 20mg daily and counseled on substance abuse/cigarette smoking. Mr. Davalos presented to the ER on 03/20/22 for R eye monocular vision loss vs diplopia after acute tussive episode. He had a CTH/CTA head/neck at that time which showed no acute findings. I was able to review these images personally and on hindsight there may be some distal R MCA branch pruning.... Regardless, he apparently did see optemetry for these vision complaints which did end up resolving. He was admitted to [facility] on 04/04/22 when he presented with 1 day of LINK - unusual for him - and vague vision complaints found to have a left homonymous hemianopsia and left hemineglect. He was found to have a subacute stroke. He was started on DAPT s/p Plavix load. Today, he states that he had run out of aspirin some time ago and had not bought more in weeks to months - though he was taking atorvastatin regularly. He was started on verapamil on 04/07/22 for ongoing LINK which has since resolved. He has undergone the work-up as below: -CTH (04/04/22): subacute R parietal-occipital ischemic stroke. I reviewed these images personally and this is my personal interpretation. -CTA head/neck (04/04/22): distal R MCA branch pruning suggestive of distal R MCA occlusion. Athero at the carotid bulbs R>L without significant stenosis. I reviewed these images personally and this is my personal interpretation. -CUS (04/05/22): no stenosis. -MRI brain w/o (04/05/22): acute/subacute R parietal-occipital ischemic stroke without evidence of hemorrhage. I reviewed these images personally and this is my personal interpretation. -CTH (04/06/22): no acute findings. Stable compared to previous. I reviewed these images personally and this is my personal interpretation. -TTE (04/08/22): EF 60%, no wall motion abnormalities. LA normal. No PFO. -Labs (04/04/22): W 12.53, Hgb 13.8, Plt 297, INR 1.0, Na 131, K 3.7, Cr 1.1, glucose >100, tbili 1.2, trop not done, TSH 0.55, A1c 6.2, LDL 61, UDS +THC, UA ok He lives alone. He drives. He is on disability. He denies palpitations or tachcardia. He smokes 0.5ppd. Notes sober from cocaine. Notes irregular drinking at this time. Review of Systems All systems reviewed & are unremarkable except as noted in HPI and below PFSH All Active Problems (Updated 04/08/22 @ 17:01 by Ingris Saini MD) Bk-neglect of left side (Acute) Left homonymous hemianopsia (Acute) Discharge planning issues (Acute) Headache (Acute) Hyponatremia (Acute) Hyperlipidemia (Chronic) HTN (hypertension) (Chronic) Acute right arterial ischemic stroke, middle cerebral artery (MCA) (Acute) CVA (cerebral vascular accident) (Chronic) Diplopia (Acute) Nasal turbinate hypertrophy (Acute) Nasal obstruction (Acute) Allergic rhinitis due to allergen (Acute) Deviated nasal septum (Acute) Nasal polyp (Acute) Sensory hearing loss, unilateral (Acute) Environmental allergies (Acute) Smoker (Acute) Cocaine use (Chronic) Thrombotic stroke involving cerebellar artery (Acute) Discharge planning issues (Acute) DVT prophylaxis (Acute) Upper respiratory infection (Acute) Dizziness (Acute) Vertigo (Acute) S/P left inguinal hernia repair (Acute) 12/10/18, Dr Shanice Benavidez, [facility] Left inguinal hernia (Acute) Right rotator cuff tendonitis (Acute) Medical History (Updated 04/08/22 @ 17:01 by Ingris Saini MD) Alcohol consumption binge drinking Chronic anxiety Chronic low back pain Degenerative joint disease Depression Erectile dysfunction Hamstring tendinitis hypertension,borderline Onychomycosis Prediabetes Tobacco dependency Surgical History Colonoscopy - MAC (12/01/17) eye surgery trauma as a child H/O right inguinal hernia repair Family History Mother , cancer Personal history of malignant neoplasm Father Stroke Hypertension Social History Smoking/Tobacco Use Status: Current every day Tobacco Type: cigarettes Tobacco: How many years used: 20 Quit status: not considering quitting Second Hand Exposure: Yes Smoking risk assessment performed?: Yes Alcohol Intake: current Alcohol Intake frequency: 0-2 drinks per day Alcohol type: beer Drug use: Daily Substance use type: marijuana Seatbelt use: always Do you feel safe at home: Yes Do you feel safe in your relationship?: Yes Visit Medication and Allergies Active Medications Generic Name Dose Route Start Last Admin Trade Name Freq PRN Reason Stop Dose Admin Acetaminophen 1,000 mg 04/05/22 20:00 04/08/22 14:44 Acetaminophen 500 Mg Tab PO 1,000 mg TID PURA Administration Al Hydrox/Mg Hydrox/Simethicone 30 ml 04/04/22 21:39 Mylanta Suspension 30 Ml Cup PO Q2H PRN PRN Albuterol Sulfate 2 puff 04/04/22 21:48 Albuterol Hfa 8 Gm 60 Puff Inh IH Q4H PRN PRN Aspirin 81 mg 04/05/22 08:30 04/08/22 08:29 Aspirin 81 Mg Chew PO 81 mg DAILY PURA Administration Atorvastatin Calcium 80 mg 04/04/22 22:00 04/07/22 22:19 Atorvastatin 20 Mg Tab PO 80 mg HS PURA Administration Cetirizine HCl 10 mg 04/05/22 08:30 04/08/22 08:29 Cetirizine 10 Mg Tab PO 10 mg DAILY PRUA Administration Clopidogrel Bisulfate 75 mg 04/06/22 08:30 04/08/22 08:29 Clopidogrel 75 Mg Tab PO 75 mg DAILY PURA Administration Device 1 each 04/04/22 22:00 Inhaler, Assist Device [facility] Dimethicone/Zinc Oxide 0 gm 04/04/22 21:35 Lindsey Protect Cream 142 Gm Tube TP PRN PRN Docusate Sodium 100 mg 04/04/22 21:39 Docusate Sodium 100 Mg Cap PO TID PRN PRN Fluticasone Propionate 0 gm 04/05/22 07:31 Fluticasone Nasal [place] 16 Gm Btl NS DAILY PRN PRN nasal congestion Magnesium Hydroxide 30 ml 04/04/22 21:39 Milk Of Magnesia 30 Ml Cup PO DAILY PRN PRN Polyethylene Glycol 17 gm 04/04/22 21:39 Polyethylene Glycol 3350 17 Gm Packet PO DAILY PRN PRN Constipation Tapentadol 100 mg 04/06/22 14:23 Tapentadol I.R. 50 Mg Tab PO Q4H PRN PRN Verapamil HCl 120 mg 04/07/22 22:00 04/07/22 22:19 Verapamil C.R. 120 Mg Tabcr PO 120 mg HS PURA Administration Allergies No Known Allergies Allergy (Verified 04/04/22 17:37) Exam Narrative Exam Narrative: Physical Exam: Gen: Patient of apparent stated age, NAD Head and face: no facial or cranial abnormalities Neck: Supple, no meningismus, no occipital tenderness CV: + S1, S2, RRR, no murmur Resp: CTA B/L Abd: soft, nontender, nondistended Ext: No edema. No clubbing or cyanosis. No bony deformity. Neuro Exam: Language: fluency, naming, repetition, and comprehension intact; Mental Status: AAOx3, current events and fund of knowledge limited Speech: ?mild dysarthria Cranial nerves: Funduscopy: not performed CN II: left homonymous hemianopsia CN III, IV, : extraocular movements intact, no nystagmus, pupils symmetric and reactive to light CN V: face sensation intact to LT and PP CN VII: ?left lower face weakness? CN VIII: hearing intact bilaterally CN IX, X: palate rises symmetrically CN XI: trapezius/SCM 5/5 bilaterally CN XII: protrudes tongue symmetrically Sensory: intact to LT, PP in all extremities; extinction to DSS in left hemibody Motor: bulk and tone intact. Fine motor movements intact bilaterally. No pronator drift. Strength 5/5 throughout including the deltoids, biceps, triceps, wrist extensors, hip flexors, knee flexors, knee extensors, ankle flexors, and ankle extensors. Reflexes: 2+ at the biceps, triceps, brachioradialis, patella, and achilles tendons bilaterally; toes down going bilaterally; Coordination: FTN and HTS intact bilaterally Gait: not tested Results Last Vital Signs Temp 97.3 F L 04/08/22 14:41 Pulse 74 04/08/22 14:41 Resp 21 04/08/22 14:41 BP 127/83 04/08/22 14:41 Pulse Ox 98 04/08/22 14:41 Labs Result diagrams: 04/05/22 05:40 04/06/22 05:35
--- NOTE | 2022-04-08 16:02 | DSE_ITS ---
Date of service: 04/08/22 Time of Service: 16:02 DS: Diagnosis Discharge Diagnosis (1) Acute right arterial ischemic stroke, middle cerebral artery (MCA): Status: Acute Asessment and Plan: Patient presented with a delayed presentation of right MCA CVA as exhibited by left-sided hemineglect and left temporal hemianopsia. CT of the head neck showed subacute infarction in the right parietal-occipital region along with occlusion of the right middle cerebral artery at the M2 parietal branches. Left common internal and external carotid arteries were within normal limits. Right proximal internal carotid artery showed atheromatous narrowing of less than 50% diameter. Otherwise right common internal and external carotid arteries were unremarkable. Vertebral arteries were unremarkable. Is noted to have right dominant vertebral circulation with threadlike but patent left vertebral artery. Dr. Moustapha Yuan, ED provider from [facility], discussed the case with discussed the case with [facility] neurology who recommended dual antiplatelet therapy. Patient was started on aspirin and Plavix. Subsequently we have an in-house neurology consult from Dr. Ingris Saini who indicated that given his large territory stroke in his late presentation that he should not be on dual antiplatelet therapy. At discharge patient was sent home on Plavix 75 mg daily and his aspirin was discontinued. Patient was initially placed on high-dose atorvastatin 80 mg nightly. Subsequent secondary restratification included a lipid profile and glycohemoglobin A1c. Lipids demonstrated good control with LDL 61 triglyceride 58 total cholesterol 127 and HDL 55. Therefore his atorvastatin was reduced down to 40 mg nightly. Glycohemoglobin A1c was 6.2% consistent with impaired g lycemic control. However blood sugars during his hospitalization were normal with fasting glucose of 93. Physical therapy and Occupational Therapy were consulted and work with the patient. See their notes for details. OT recommended that the patient go to SNF versus [facility] for stroke rehabilitation program as they felt that he lives alone and would not build to perform his ADLs without visual cueing. Physical therapy to work with the patient and he showed progression of the next few days. Their final recommendation also was for either an acute stroke rehab center versus SNF versus outpatient PT based on his progression. He did not show significant improvement in his gait and balance to the point that on the day of discharge he progressed to gait without hand-held support and showed improvement in his left-sided inclusion and showed improved balance and stability both with static and dynamic activities. He walked 300 feet with no loss of balance. Patient was offered the opportunity to go for further inpatient rehabilitation but declined such offer. He will be discharged home with home health services including home PT and home OT as well as nursing and [facility] to coordinate his medical services. (2) Cocaine use: Status: Chronic Asessment and Plan: Patient denied any recent cocaine abuse. Toxicology screen was negative except for THC. (3) HTN (hypertension): Status: Chronic (4) Hyperlipidemia: Status: Chronic (5) Alcohol consumption binge drinking: (6) Headache: Status: Resolved Asessment and Plan: probable vasogenic headache secondary to right MCA CVA. Symptoms alleviated by low-dose verapamil. (7) Discharge planning issues: Status: Deleted Discharge Plan Disposition Patient Disposition: Home W/Home Health Services Condition: Improving Discharge Details Reason For Visit: Subacute Right MCA CVA, Hypertension, Cocaine Use Admit Date/Time: 04/04/22 21:35 Admit Provider: Yasmani Christianson Attending Provider: Yasmani Christianson Primary Care Provider: Jin Payan Home Meds and New Rx's Prescriptions: New atorvastatin 20 mg Tablet 40 mg PO HS Qty: 60 0RF verapamil [Calan SR] 120 mg Tablet Extended Release 120 mg PO HS Qty: 30 0RF clopidogrel 75 mg Tablet 75 mg PO DAILY Qty: 30 2RF Continued fluticasone propionate [Flonase Allergy Relief] 50 mcg/actuation spray,suspension 1 spray ROBERTO DAILY PRN (Reason: nasal congestion) cetirizine 10 MG tablet,chewable 10 mg PO DAILY Changed albuterol sulfate 90 mcg/actuation Hfa Aerosol Inhaler 2 puff INHALATION QID PRN PRNQty: 0 0RF Discontinued atorvastatin 20 mg tablet 20 mg PO QHS Qty: 30 12RF sildenafil [Viagra] 50 MG tablet 50 mg PO PRN lisinopril-hydrochlorothiazide 10-12.5 mg Tablet 1 tab PO DAILY aspirin 81 mg Tablet,Chewable 81 mg PO DAILY Qty: 30 0RF Discharge Instructions Instructions: Clopidogrel (By mouth), Ischemic Stroke (DC) Stand Alone Forms: Nursing Discharge Form Referrals: Jin Payan [Primary Care Provider] - (Please call to make a follow up in one week [phone]) Ingris Saini MD [ [facility] STAFF PHYSICIAN] - (please call to make a follow up in the next 4 weeks [phone]) Activity:: Activity as Tolerated Equipment/Supplies:: No Equipment Needed Diet:: Normal Diet Discharge Orders Discharge Orders: Discharge Order (Routine); Ordered 04/08/22 Ordered By: Jett Curiel Discharge Data Discharge Date/Time-TO BE ENTERED AT DEPARTURE: 04/08/22 17:18 DS: Summary Time Spent with Patient providing and/or coordinating discharge services: Greater than 30 minutes Status at Discharge Functional status at discharge: independent ambulation Overall status at discharge: patient is progressing back to baseline Mental Status: mental status grossly normal Speech and Movement: speech and movement normal Mood: congruent mood Affect: normal affect Exam Narrative Exam Narrative: Ary was sleeping very soundly and exhibiting severe snoring Neuro exam is pretty much unchanged; still w/ left sided hemineglect, has left hemianopsia worse in LLQ; Left hand seems less clumsy; able to do finger to nose testing and as long as I keep my hand within his visual range he does fairly well on the left although not as well as his right hand; heel to monson is normal. BLE strength and ROM are normal. 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 Psych Mental Status: mental status grossly normal Speech and Movement: speech and movement normal Mood: congruent mood Affect: normal affect DS: Data Vitals/I&O Vitals and I&O: Vital Signs Temperature 36.3 C L 04/08/22 14:41 Temperature Source Tympanic 04/08/22 14:41 Pulse 74 04/08/22 14:41 Pulse Rhythm Regular 04/08/22 15:08 Pulse 79 04/04/22 22:01 Respiratory Rate 21 04/08/22 14:41 Respiratory Effort Non-Labored 04/08/22 15:08 Respiratory Depth Normal 04/08/22 15:08 Respiratory Pattern Normal 04/08/22 15:08 Blood Pressure 127/83 04/08/22 14:41 Blood Pressure Mean 96 04/04/22 22:01 Blood Pressure Position Sitting 04/04/22 17:32 Pulse Oximetry 98 04/08/22 14:41 Oxygen Delivery Method Room Air 04/08/22 14:41 Oxygen Flow Rate 0 04/08/22 14:41 Pain Level 0 04/08/22 14:41 Comment 04/07/22 13:05 Intake & Output 04/07/22 04/08/22 04/08/22 23:59 11:59 23:59 Intake Total 240 / 1030 730 / 730 Output Total 225 / 225 Balance 15 / 805 730 / 730 Weight 85.7 kg Intake: Oral 240 / 1030 730 / 730 Output: Urine 225 / 225 Other: Urine Color Yellow Yellow Urine Appearance Clear Clear Comment Nurse or COMPLAINT INVESTIGATOR brought pT to the bathroom and walked back to bed. pT voided in the toilet. Voiding Methods Urinal Toilet Toilet Data Completed and Pending Labs on day of discharge: Preliminary micro results at discharge 04/06/22 01:26 Blood Culture - Preliminary Blood NO GROWTH 48 HOURS 04/06/22 01:18 Blood Culture - Preliminary Blood NO GROWTH 48 HOURS PFSH All Active Problems (Updated 04/09/22 @ 00:08 by SHIRA IZQUIERDO) Bk-neglect of left side (Acute) Left homonymous hemianopsia (Acute) Hyperlipidemia (Chronic) HTN (hypertension) (Chronic) Acute right arterial ischemic stroke, middle cerebral artery (MCA) (Acute) CVA (cerebral vascular accident) (Chronic) Nasal turbinate hypertrophy (Acute) Nasal obstruction (Acute) Allergic rhinitis due to allergen (Acute) Deviated nasal septum (Acute) Nasal polyp (Acute) Sensory hearing loss, unilateral (Acute) Environmental allergies (Acute) Smoker (Acute) Cocaine use (Chronic) Thrombotic stroke involving cerebellar artery (Acute) Discharge planning issues (Acute) DVT prophylaxis (Acute) Upper respiratory infection (Acute) Dizziness (Acute) Vertigo (Acute) S/P left inguinal hernia repair (Acute) 12/10/18, Dr Shanice Benavidez, [facility] Left inguinal hernia (Acute) Right rotator cuff tendonitis (Acute) Medical History (Updated 04/09/22 @ 00:08 by SHIRA IZQUIERDO) Alcohol consumption binge drinking Chronic anxiety Chronic low back pain Degenerative joint disease Depression Erectile dysfunction Hamstring tendinitis hypertension,borderline Onychomycosis Prediabetes Tobacco dependency Surgical History Colonoscopy - MAC (12/01/17) eye surgery trauma as a child H/O right inguinal hernia repair Family History Mother , cancer Personal history of malignant neoplasm Father Stroke Hypertension Social History Smoking/Tobacco Use Status: Current every day Tobacco Type: cigarettes Tobacco: How many years used: 20 Quit status: not considering quitting Second Hand Exposure: Yes Smoking risk assessment performed?: Yes Alcohol Intake: current Alcohol Intake frequency: 0-2 drinks per day Alcohol type: beer Drug use: Daily Substance use type: marijuana Seatbelt use: always Do you feel safe at home: Yes Do you feel safe in your relationship?: Yes
--- NOTE | 2022-04-08 16:24 | PDOC.HHF2F_ITS ---
Home Health Referral Home Health Orders Clinical synopsis of why skilled professionals are needed: right hemispheric CVA w/ left sided hemineglect and gait instability Medical diagnosis necessitation home health referral: R. MCA territory CVA Registered Nurse: Check all that apply Instruct on new or changed medication(s)/assess compliance: Ordered Assess for exacerbation of medical condition, instruct patient/caregivers on signs and symptoms to report for early detection: Ordered Physical Therapist: Check all that apply Increase strength & endurance for safe mobility at home: Ordered To design/establish home maintenance program: Ordered Fall reduction therapy program for patient with history of frequent falls: Ordered Home safety evaluation and teaching/gait training including stair management (if applicable): Ordered Occupational Therapist: Upper extremity strengthening, range and motion: Ordered Hyperbaric Nurse: Assist with community resources: Ordered Home Bound Status Patient has a condition such that leaving home is medically contraindicated (Describe): gait instability from subacute CVA Describe why leaving home would require a considerable and taxing effort: Safety Concerns: describe (high fall risk d/t recent CVA) Encounter Date and Reason: I certify that a FTF encounter for this patient was performed on April 08, 2022 and that such encounter was related to the primary reason the patient requires home health services. The encounter was conducted in the following manner: * By me as the certifying physician, CLINICAL NURSING DIRECTOR, PA or * By an inpatient physician, CLINICAL NURSING DIRECTOR or PA during an inpatient stay who communicated findings to me, Certification And Authentication I certify that I composed the above information based on my clinical judgment relating to this patient's medical condition and, if applicable, clinical findings communicated to me by the NPP or inpatient physician who performed the FTF encounter. Name of Provider that will be monitoring home health services: Jin Payan
--- NOTE | 2022-04-08 16:32 | PT.INTREAT ---
Date of service: 04/08/22 Time of Service: 14:07 PT Notes Visit Reasons: Subacute Right MCA CVA, Hypertension, Cocaine Use Inpatient Physical Therapy Treatment Note [facility] Date: [] PRECAUTIONS:[] SUBJECTIVE: [] OBJECTIVE: [] PAIN: [] BED MOBILITY/TRANSFERS Rolling L/R: [] Supine-sit: [] Sit-supine: [] Sit-stand: [] Stand-sit: [] Bed-Chair: [] Chair-bed: [] GAIT Assistive Device: [] Weight bearing: [] Assist: [] Distance: [] Deviation: [] VITALS: [] THEREX: [] STAIRS:[] ASSESSMENT: [] PLAN: [] TREATMENT CODE/TIME: []
--- NOTE | 2022-04-08 16:38 | CMDISCH_ITS ---
- If Service Date Differs Date of service: 04/08/22 Time of Service: 16:38 LACE Index Scoring Tool - Questions: Length of Stay (in days): 4 - 6 Acuity (Admit via E.D.?): Yes Comorbidities: Chronic Pulmonary Disease E.D. Visits: 2 - Answers: Total Score: 11 Risk of Readmission: High Risk Care Management Discharge Reason for Hospitalization: Acute right arterial ischemic stroke Discharge Plan: Ary is discharged home via private vehicle with family. New [facility] services are ordered. New RX's are transmitted to [facility]. Patient will call his PCP and Dr. Saini in the morning to schedule follow up appointments. Patient/Family Education Needs: Review discharge instructions, limitations, medications and plan to follow up with community providers. Discuss ask me three and goals of self care. Services Needed at Discharge: Home Health Care Services (New [facility] RN, PT, OT, CLINICAL PROGRAMMER services are ordered. Face to face complete. CM notified [facility].)
== END 2022-04-08 17:18 | disposition home health service (06) | DRG 65 ==
LOC: ER 21:50 → MS 22:31
PROVIDERS: Emergency Medicine; Internal Medicine; Admitting Provider Family Medicine; Emergency Provider Emergency Medicine; PCP Family Medicine; Visit Provider Family Medicine
DX: I63.311 Cerebral infarction due to thrombosis of right middle cerebral artery (principal); E87.1 Hypo-osmolality and hyponatremia; R41.4 Neurologic neglect syndrome; H53.2 Diplopia; F14.90 Cocaine use, unspecified, uncomplicated; E78.5 Hyperlipidemia, unspecified; I10 Essential (primary) hypertension; F17.210 Nicotine dependence, cigarettes, uncomplicated; H53.47 Heteronymous bilateral field defects; F10.90 Alcohol use, unspecified, uncomplicated; F19.10 Other psychoactive substance abuse, uncomplicated; M54.2 Cervicalgia; J34.3 Hypertrophy of nasal turbinates; J30.9 Allergic rhinitis, unspecified; G89.29 Other chronic pain; F41.9 Anxiety disorder, unspecified; M54.50 Low back pain, unspecified; F32.A Depression, unspecified; R73.03 Prediabetes; R51.9 Headache, unspecified; R47.1 Dysarthria and anarthria; R29.810 Facial weakness; Z86.73 Personal history of transient ischemic attack (TIA), and cerebral infarction without residual deficits
CPT/HCPCS: 36410; 36415; 70496; 70498; 80048; 80053; 80061; 80307; 85027; 87040; 87635; 93005; 93306; 96361; 96365; 97035; 97110; 97112; 97162; 97166; 97530; 97535; 99223; 99285; 70450; 70551; 81003; 83036; 83735; 84132; 84443; 85025; 85610; 87086; 93010; 93880; 99232; 99239; J0131; J3490

== ENCOUNTER → 2022-05-20 11:32 | Outpatient (BNVA) | payer MEDICARE, SELFPAY | PROVIDERS: PCP Family Medicine; Referring Provider Family Medicine; Visit Provider Psychiatry & Neurology Neurology | DX: I69.312 Visuospatial deficit and spatial neglect following cerebral infarction (principal); I69.392 Facial weakness following cerebral infarction; F17.210 Nicotine dependence, cigarettes, uncomplicated | CPT/HCPCS: 99214 ==

== ENCOUNTER 2022-06-04 02:28 | Outpatient (CLI) | payer MEDICARE, SELFPAY ==
--- NOTE | 2022-06-04 12:11 | DI.CTLCSR_ITS ---
Exam(s) CT CHEST LUNG CANCER SCREEN EXAM: CT CHEST LUNG CANCER SCREEN CLINICAL HISTORY: CIGARETTE SMOKER F17.210. TECHNIQUE: Imaging Protocol: Low Dose Technique CONTRAST MATERIAL: None COMPARISON: CT CT CHEST LUNG CANCER SCREEN from 05/17/2021 FINDINGS: CHEST: LUNGS: There are no new ominous pulmonary nodules. There is a described small benign-appearing findi ngs in the right lung are unchanged. In the medial right lung base previously described small nodula r densities are no longer seen. There are no confluent infiltrates. No pleural effusions. MEDIASTINUM: There is no obvious hilar nor mediastinal adenopathy. CARDIAC: Heart size is normal. There is no pericardial effusion.Caliber of the thoracic aorta is wit hin normal limits. OTHER: OSSEOUS: No significant osseous lesions.. IMPRESSION: 1. Stable benign-appearing findings. No new ominous nodules. 2. No pleural effusions nor intrathoracic adenopathy. 3. Lung RADS Cat 2 - Benign Appearance / Behavior: Nodules with a very low likelihood of becoming a c linically active cancer due to size or lack of growth Lung-RADS 1.0 CATEGORIES: Category 0 - Prior chest CT exam(s) being located for comparison. Category 1 - Annual screening in 12 months. No nodules or definitely benign nodules. Category 2 - Annual screening in 12 months. Benign appearance. Nodules with low likelihood of becomin g active cancer. Category 3 - 6-month follow-up. Probably benign. Short-term follow-up suggested. Nodules with low lik elihood of becoming active cancer. Category 4A - 3-month follow-up and CT/PET if >8 mm in size. Suspicious finding. Findings which requi re additional testing. Category 4B - Findings which require additional testing and tissue sampling. Category 4X - Category 3 or 4 nodules with additional features or imaging findings that increases the suspicion of malignancy. Modifier S- Potentially clinically significant findings (non lung cancer) RADIATION DOSE DELIVERED: 96.31mGy.cm Total DLP DATA REPOSITORY: All CT scans at this facility are submitted to the National Radiology Data Registry (NRDR) Dose Index Registry (DIR) with the [employer] (ACR). RADIATION OPTIMIZATION: All CT scans at this facility use at least one of these dose optimization te chniques: automated exposure control; mA and/or kV adjustment per patient size (includes targeted exa ms where dose is matched to clinical indication); or iterative reconstruction.
== END 2022-06-04 02:48 ==
LOC: DI 02:29
PROVIDERS: PCP Family Medicine; Visit Provider Family Medicine
DX: Z12.2 Encounter for screening for malignant neoplasm of respiratory organs (principal); F17.210 Nicotine dependence, cigarettes, uncomplicated; R91.8 Other nonspecific abnormal finding of lung field
CPT/HCPCS: 71271

== ENCOUNTER 2022-06-24 07:29 | Outpatient (CLI) | payer MEDICARE, SELFPAY ==
--- NOTE | 2022-06-24 08:41 | W.CARDEVENT ---
Date of service: 06/24/22 Time of Service: 08:43 Cardiac Event Recorder Referring Provider:: Jin Payan Indications:: Stroke Cardiac Event Note: This is a 14-day cardiac event monitor Rhythm throughout was sinus with an average heart rate of 73. Minimum was 52, maximum 128 There were occasional ventricular ectopic beats, rare couplets and 1 triplet There were very rare atrial premature beats. A total of 3 self-limited atrial runs occurred. The longest of these was 5 beats in duration There was no atrial fibrillation, no high-grade AV block, no pauses greater than 3 seconds No patient symptoms were reported
== END 2022-06-24 07:30 | disposition home or self-care (01) ==
LOC: CARDOPNVT 07:29
PROVIDERS: PCP Family Medicine; Visit Provider Internal Medicine Cardiovascular Disease
DX: I63.9 Cerebral infarction, unspecified (principal); I49.1 Atrial premature depolarization
CPT/HCPCS: 93248

== ENCOUNTER 2023-01-02 13:48 | Outpatient (REF) | payer MEDICARE, SELFPAY ==
[2023-01-02 19:02] LABS: HCT 40.4 % (40.0-50.0); HGB 13.5 g/dL (13.5-17.5); MCH 28.7 pg (27.0-33.0); MCHC 33.4 % (32.0-36.0); MCV 86 fL (80-95); MPV 10.5 fL (8.0-11.0); Platelet Count 296 10^3/uL (130-400); RDW 13.3 % (11.8-14.1); RDW-SD 42.1 fL; WBC 7.66 10^3/uL (4.4-10.8)
[2023-01-02 19:17] LABS: ALT 26 U/L (16-63); AST 25 U/L (15-37); Albumin 4.1 g/dL (3.4-5.0); Alkaline Phosphatase 76 U/L (46-116); Anion Gap 6.3 mmol/L (3-11); BUN 23 mg/dL (7-18); Bilirubin, Total 0.5 mg/dL (0.2-1.0); CO2 29.7 mmol/L (21.0-32.0); CREATININE 1.2 mg/dL (0.70-1.30); Calcium 9.2 mg/dL (8.5-10.1); Chloride 100 mmol/L (98-107); Estimated GFR 67.95 (mL/min/1.73m2); Glucose 105 mg/dL (74-106); Potassium 3.1 mmol/L (3.5-5.1); Sodium 136 mmol/L (136-145); Total Protein 7.7 g/dL (6.4-8.2)
== END 2023-01-02 13:49 | disposition home or self-care (01) ==
LOC: NCHCN 13:48
PROVIDERS: PCP Family Medicine; Visit Provider Family Medicine
DX: D64.9 Anemia, unspecified (principal); R17 Unspecified jaundice; E80.6 Other disorders of bilirubin metabolism
CPT/HCPCS: 80053; 85027

== ENCOUNTER 2023-02-20 14:11 | Outpatient (REF) | payer MEDICARE, SELFPAY ==
[2023-02-20 16:40] LABS: Magnesium 2.2 mg/dL (1.8-2.4); Potassium 3.3 mmol/L (3.5-5.1)
== END 2023-02-20 14:12 | disposition home or self-care (01) ==
LOC: NCHCN 14:11
PROVIDERS: PCP Family Medicine; Visit Provider Family Medicine
DX: E87.6 Hypokalemia (principal)
CPT/HCPCS: 83735; 84132

== ENCOUNTER 2023-05-06 15:42 | Outpatient (REF) | payer MEDICARE, SELFPAY ==
[2023-05-06 16:10] LABS: Anion Gap 10.6 mmol/L (3-11); BUN 21 mg/dL (7-18); CO2 27.4 mmol/L (21.0-32.0); CREATININE 0.9 mg/dL (0.70-1.30); Calcium 9.1 mg/dL (8.5-10.1); Chloride 102 mmol/L (98-107); Estimated GFR 95.37 (mL/min/1.73m2); Glucose 90 mg/dL (74-106); Potassium 3.9 mmol/L (3.5-5.1); Sodium 140 mmol/L (136-145)
== END 2023-05-06 15:43 | disposition home or self-care (01) ==
LOC: NCHCN 15:42
PROVIDERS: PCP Family Medicine; Visit Provider Family Medicine
DX: E87.6 Hypokalemia (principal)
CPT/HCPCS: 80048

== ENCOUNTER → 2023-06-10 01:37 | Outpatient (CLI) | payer MEDICARE, SELFPAY ==
--- NOTE | 2023-06-10 11:18 | DI.CTLCSR_ITS ---
Exam(s) CT CHEST LUNG CANCER SCREEN EXAM: CT CHEST LUNG CANCER SCREEN CLINICAL HISTORY: NICOTINE DEPENDENCE, F17.210, CURRENT SMOKER, SCREENING FOR LUNG CANCER. TECHNIQUE: Imaging Protocol: Low Dose Technique CONTRAST MATERIAL: None COMPARISON: CT CT CHEST LUNG CANCER SCREEN from 06/04/2022 FINDINGS: CHEST: LUNGS: There are no new ominous pulmonary nodules. There are no new confluent infiltrates. The previ ously described small benign-appearing right upper lobe nodules are unchanged. No pleural effusions. MEDIASTINUM: There is no obvious hilar nor mediastinal adenopathy. CARDIAC: Heart size is normal. There is no pericardial effusion.Caliber of the ascending thoracic ao rta is upper normal. OTHER: OSSEOUS: No significant osseous lesions.. IMPRESSION: 1. Stable benign-appearing findings. No new significant nodules, infiltrates, nor pleural effusions. 2. No significant intrathoracic adenopathy. 3. Lung RADS Cat 1 - Negative: No nodules and definitely benign nodules Lung-RADS 1.0 CATEGORIES: Category 0 - Prior chest CT exam(s) being located for comparison. Category 1 - Annual screening in 12 months. No nodules or definitely benign nodules. Category 2 - Annual screening in 12 months. Benign appearance. Nodules with low likelihood of becomin g active cancer. Category 3 - 6-month follow-up. Probably benign. Short-term follow-up suggested. Nodules with low lik elihood of becoming active cancer. Category 4A - 3-month follow-up and CT/PET if >8 mm in size. Suspicious finding. Findings which requi re additional testing. Category 4B - Findings which require additional testing and tissue sampling. Category 4X - Category 3 or 4 nodules with additional features or imaging findings that increases the suspicion of malignancy. Modifier S- Potentially clinically significant findings (non lung cancer) RADIATION DOSE DELIVERED: 83.74mGy.cm Total DLP DATA REPOSITORY: All CT scans at this facility are submitted to the National Radiology Data Registry (NRDR) Dose Index Registry (DIR) with the [employer] (ACR). RADIATION OPTIMIZATION: All CT scans at this facility use at least one of these dose optimization te chniques: automated exposure control; mA and/or kV adjustment per patient size (includes targeted exa ms where dose is matched to clinical indication); or iterative reconstruction.
== END ==
PROVIDERS: PCP Family Medicine; Visit Provider Family Medicine
DX: F17.210 Nicotine dependence, cigarettes, uncomplicated (principal); Z12.2 Encounter for screening for malignant neoplasm of respiratory organs
CPT/HCPCS: 71271

== ENCOUNTER 2024-01-29 15:40 | Outpatient (REF) | payer MEDICARE, SELFPAY ==
[2024-01-29 17:56] LABS: BUN 16 mg/dL (7-18); CREATININE 1.1 mg/dL (0.70-1.30); Calcium 9.3 mg/dL (8.5-10.1); Chloride 106 mmol/L (98-107); Estimated GFR 74.96 (mL/min/1.73m2); Glucose 94 mg/dL (74-106); Magnesium 2.4 mg/dL (1.8-2.4); Sodium 140 mmol/L (136-145)
== END 2024-01-29 15:41 | disposition home or self-care (01) ==
LOC: NCHCN 15:40
PROVIDERS: PCP Family Medicine; Visit Provider Student in an Organized Health Care Education/Training Program
DX: I10 Essential (primary) hypertension (principal)
CPT/HCPCS: 80048; 83735

== ENCOUNTER 2024-08-09 01:18 | Outpatient (CLI) | payer MEDICARE, SELFPAY ==
--- NOTE | 2024-08-09 | DI.CTLCSR_ITS ---
Exam(s) CT CHEST LUNG CANCER SCREEN EXAM: CT CHEST LUNG CANCER SCREEN CLINICAL HISTORY: Nicotine dependence caused by cigarettes, F17.210; current smoker, TECHNIQUE: Imaging Protocol: Axial computed tomography images with coronal and sagittal reformatted images were created and reviewed. Lung Computer Aided Detection (CAD) was utilized. COMPARISON: CT CT CHEST LUNG CANCER SCREEN from 06/10/2023 FINDINGS: Tracheobronchial tree: Patent where visualized. No bronchiectasis. Pulmonary parenchyma: Mild centrilobular emphysematous changes are present. No architectural distort ion. Lung Nodules: There is stable right upper lobe pulmonary nodules. No new pulmonary nodules are prese nt. Mediastinum and Ewa: No dominant adenopathy or fluid collection. The esophagus is unremarkable. Thyroid gland: Unremarkable. Lymph nodes: Unremarkable. Pleura: No effusion or pneumothorax. Heart: The heart is not dilated. Coronary artery calcifications are present. No pericardial effusion . Aorta: Thoracic aorta non-dilated.Atherosclerotic calcifications are present. Upper abdomen: Unremarkable. Soft Tissues: Bilateral gynecomastia. Bones: Within normal limits. IMPRESSION: No new pulmonary nodules. Lung RADS Cat 1 - Negative: No nodules and definitely benign nodules Lung-RADS 1.0 CATEGORIES: Category 0 - Prior chest CT exam(s) being located for comparison. Category 1 - Annual screening in 12 months. No nodules or definitely benign nodules. Category 2 - Annual screening in 12 months. Benign appearance. Nodules with low likelihood of becomin g active cancer. Category 3 - 6-month follow-up. Probably benign. Short-term follow-up suggested. Nodules with low lik elihood of becoming active cancer. Category 4A - 3-month follow-up and CT/PET if >8 mm in size. Suspicious finding. Findings which requi re additional testing. Category 4B - Findings which require additional testing and tissue sampling. Suspicious finding. Category 4X - Category 3 or 4 nodules with additional features or imaging findings that increases the suspicion of malignancy. Modifier S- Potentially clinically significant finding. (Non lung cancer) RADIATION DOSE DELIVERED: 31.85mGy.cm Total DLP 31.85mGy.cmTotal DLP DATA REPOSITORY: All CT scans at this facility are submitted to the National Radiology Data Registry (NRDR) Dose Index Registry (DIR) with the [employer] (ACR). RADIATION OPTIMIZATION: All CT scans at this facility use at least one of these dose optimization te chniques: automated exposure control; mA and/or kV adjustment per patient size (includes targeted exa ms where dose is matched to clinical indication); or iterative reconstruction.
--- NOTE | 2024-08-09 | DI.US_ITS ---
Exam(s) US AAA SCREENING EXAM: US AAA SCREENING CLINICAL HISTORY: vascular disorder, I99.9, disorder circulatory system, screening AAA COMPARISON: US US OR ANESTHESIA from 12/10/2018 FINDINGS: Abdominal Aorta: Proximal: 1.8 x 2.0 cm Mid: 1.7 x 1.9 cm Distal: 1.7 x 2.0 cm Iliac's: Right: 1.3 x 1.2 cm Left: 1.3 x 1.3 cm No significant atherosclerotic disease is seen. IMPRESSION: No evidence of abdominal aortic aneurysm. DATA REPOSITORY:
== END 2024-08-09 01:38 ==
LOC: DI 01:18
PROVIDERS: PCP Family Medicine; Visit Provider Student in an Organized Health Care Education/Training Program
DX: F17.210 Nicotine dependence, cigarettes, uncomplicated (principal); Z13.6 Encounter for screening for cardiovascular disorders; Z12.2 Encounter for screening for malignant neoplasm of respiratory organs
CPT/HCPCS: 71271; 76706

== ENCOUNTER 2025-01-31 15:51 | Outpatient (REF) | payer MEDICARE, SELFPAY ==
[2025-01-31 16:13] LABS: ALT 58 U/L (16-63); AST 30 U/L (15-37); Albumin 4.0 g/dL (3.4-5.0); Alkaline Phosphatase 100 U/L (46-116); Anion Gap 8.6 mmol/L (3-11); BUN 21 mg/dL (7-18); Bilirubin, Total 0.5 mg/dL (0.2-1.0); CO2 28.4 mmol/L (21.0-32.0); Calcium 9.2 mg/dL (8.5-10.1); Chloride 103 mmol/L (98-107); Estimated GFR 67.11 (mL/min/1.73m2); Glucose 100 mg/dL (74-106); Magnesium 2.3 mg/dL (1.8-2.4); Potassium 3.5 mmol/L (3.5-5.1); Sodium 140 mmol/L (136-145); Total Protein 7.3 g/dL (6.4-8.2)
[2025-02-01 16:08] LABS: COMMENT (LAB VIEW ONLY) 187.06 mg/dL; Microalb ug/mg Crea 5.2 ug/mg Cr
[2025-02-01 16:19] LABS: Calculated LDL 55 mg/dL (<100); Cholesterol 134 mg/dL (<200); HDL Cholesterol 48 mg/dL (>or=40); Triglyceride 159 mg/dL (<150)
== END 2025-01-31 15:52 | disposition home or self-care (01) ==
LOC: NCHCN 15:51
PROVIDERS: PCP Family Medicine; Visit Provider Student in an Organized Health Care Education/Training Program
DX: I10 Essential (primary) hypertension (principal)
CPT/HCPCS: 80053; 80061; 82043; 82570; 83735

== ENCOUNTER 2025-02-09 03:22 | Outpatient (CLI) | payer MEDICARE, SELFPAY ==
--- NOTE | 2025-02-09 14:31 | DI.US_ITS ---
APPROVED REPORT EXAM: Comprehensive 2D, Doppler, and color-flow Echocardiogram Patient Location: Out-Patient Utility [employer]: Hattie Mejia RDCS (AE) Indications: Thoracic aortic ectasia, Ascending aorta dilation Other Information Study Quality: Adequate. Technically limited study due to body habitus. Conclusion Normal left ventricular wall thickness and chamber size. Ejection fraction is 58%. Wall motion is normal Normal right ventricular size and function Both atria are normal in size There is no structural or hemodynamically significant valvular disease Normal estimated right ventricular systolic pressure 22 mmHg Very mildly dilated ascending aorta measuring 3.8 cm Wall motion Left Ventricle The left ventricle is normal size. The left ventricular systolic function is normal. The left ventricular ejection fraction is within the normal range. There is normal left ventricular wall thickness. There is normal LV segmental wall motion. There is no ventricular septal defect visualized. LVEF is 58%. Right Ventricle The right ventricle is normal size. The right ventricular systolic function is normal. Atria The left atrium size is normal. The right atrium size is normal. The interatrial septum is intact with no evidence for an atrial septal defect. Aortic Valve The aortic valve is normal in structure. Aortic valve is trileaflet. There is no aortic valvular stenosis. No aortic regurgitation is present. Mitral Valve The mitral valve is normal in structure. No evidence of mitral valve stenosis. Trace mitral regurgitation. Tricuspid Valve The tricuspid valve is normal in structure. There is no tricuspid valve stenosis. Trace tricuspid regurgitation. The RVSP is 22.0 mmHg. Pulmonic Valve The pulmonary valve is normal in structure. There is no pulmonic valvular stenosis. Trace pulmonic regurgitation. Great Vessels The aortic root is normal in size. The ascending aorta is mildly dilated. Aortic arch is normal in caliber. IVC is normal in size and collapses >50% with inspiration. Pericardium There is no pericardial effusion. 2D Dimensions IVSD d PLAX 1.00 cm M: 0.6-1.2 Ao Root d 3.51 cm M: 3.1 - 3.7 LVPW d PLAX 1.00 cm M: 0.6 - 1.2 Ao Asc Diam d 3.80 cm M: 2.6 - 3.4 LVID d PLAX 5.00 cm M: 4.2 - 5.8 LVDs 3.50 cm M: 2.5 - 4.0 LV EF Teichholz 57.6 % FS 30.44 % LV EDV (Teich) 116.5 mL LV ESV (Teich) 49.3 mL M-Mode TAPSE 2.51 cm (M/F) >1.7 Auto EF LV EDV A4C 104.8 mL LV EDV A2C 96.3 mL LV EDV BP 104.4 mL LV ESV A4C 45.4 mL LV ESV A2C 40.8 mL LV ESV BP 44.6 mL LVEF(%) A4C 56.7 % LVEF(%) A2C 57.6 % LVEF(%) BP 57.3 % LV SV A4C 59.4 ml LV SV A2C 55.5 ml LV SV BP 59.8 ml LV CO A4C 3.3 L/min LV CO A2C 2.9 L/min LV CO BP 3.1 L/min HR A4C 56.16 BPM HR A2C 52.48 BPM LV EDV Index (BP) LA Volume LA Length A4C 5.0 cm LA Length A2C 4.6 cm LA Area A4C s 15.78 cm2 LA Area A2C s 16.64 cm2 LA Vol A4C A-L 42.07 mL LA Vol A2C A-L 51.65 mL LA Vol Biplane A-L 49.0 mL LA Vol/BSA A4C A-L LA Vol/BSA A2C A-L LA Vol/BSA BP A-L 24.3 mL/m2 LA Vol A4C MOD 38.7 mL LA Vol A2C MOD 49.3 mL LA Vol BP MOD 45.9 mL RA Volume RA Area A4C 10.9 cm2 RA ESV A4C (A-L) 20.8mL RA Vol/BSA A4C A-L RA Length A4C 4.8 cm RA ESV A4C (MOD) 20.4mL LV Diastology MV E' medial 0.077 (>0.07 m/s) MV E Vmax 0.68 (0.4-1.3 m/s) MV E/E' MED 8.85 (<14) MV A Vmax 0.70 (0.4-1.3 m/s) MV E' lateral 0.118 (>0.1 m/s) E/A Ratio 1.0 MV E/E' LAT 5.76 (<14) MV E' Average 0.097 m/s MV E/E'(average) 6.98 Aortic Valve AoV Vmax 1.05 m/s LVOT Vmax 0.81 m/s AoV Peak Grad 4.4 mmHg LVOT Peak Grad 2.6 mmHg AoV Area (Vmax) 2.61 cm2 LVOT VTI 0.204 m AoV VTI 0.284 m LVOT Mean Grad 1.5 mmHg AoV Mean Lawrence. 0.71 m/s LVOT SV 68.55 mL AoV Mean Grad 2.3 mmHg LVOT Diam s 2.05 cm AoV Area (VTI) 2.41 cm2 AV Regurg Peak Gr. 4.42 mmHg Velocity Ratio 0.77 Mitral Valve MV DT 294 (160-240 msec) MV Vmax TIPS 0.62 m/s MV Mean Grad 0.7 (<2mmHg) MV VTI 0.285 m Pulmonary Valve PV Vmax 0.76 (0.5-1.5 m/s) RVOT Vmax 0.57 m/s PV Peak Grad 2.3 mmHg RVOT Peak Gr. 1.3 mmHg PV Mean Lawrence 0.61 m/s RVOT VTI 0.172 m PV Mean Grad 1.6 mmHg RVOT Mean Gr. 0.8 mmHg Tricuspid Valve RA Pressure 3.00 mmHg TR Vmax 2.18 m/s TV S' 0.12 m/s TR Peak Grad 18.9 mmHg RVSP (TR) 22.0 mmHg
== END 2025-02-09 03:42 ==
PROVIDERS: PCP Family Medicine; Visit Provider Student in an Organized Health Care Education/Training Program
DX: I77.810 Thoracic aortic ectasia (principal)
CPT/HCPCS: 93306

== ENCOUNTER → 2025-04-27 00:19 | Outpatient (CLI) | payer MEDICARE, SELFPAY ==
--- NOTE | 2025-04-27 07:00 | DI.RAD_ITS ---
Exam(s) XR FOOT RT COMPLETE EXAM: XR FOOT RT COMPLETE CLINICAL HISTORY: Right foot pain,[id number]. TECHNIQUE: 2D digital imaging was performed of the right foot. Three images were obtained. AP, oblique and lateral views were obtained. COMPARISON: No exams were available for comparison FINDINGS: BONES: No acute fracture is present. No bony destructive lesion is seen. There is a small enthesophyte at the posterior calcaneus. There is a small plantar calcaneal spur. There is a bipartite medial sesamoid at the head of the 1st metatarsal. JOINTS: No dislocation present. SOFT TISSUE: Normal. IMPRESSION: Calcaneal spurs. DATA REPOSITORY: RADIATION DOSE DELIVERED:
== END ==
PROVIDERS: PCP Student in an Organized Health Care Education/Training Program; Visit Provider Podiatrist
DX: M79.671 Pain in right foot (principal); M79.672 Pain in left foot; M21.41 Flat foot [pes planus] (acquired), right foot; M21.42 Flat foot [pes planus] (acquired), left foot; I73.89 Other specified peripheral vascular diseases; L60.2 Onychogryphosis; R25.2 Cramp and spasm; M20.41 Other hammer toe(s) (acquired), right foot; M77.31 Calcaneal spur, right foot
CPT/HCPCS: 11755; 99213; 73630